=== PATIENT | female | born 1980 | race Caucasian/White ===

== ENCOUNTER → 2016-04-24 | Outpatient (CLI) | payer OTHER ==
[~2016-04-24] MED LIST: ALBI1INJ INJ; ALBU18002 INH; ALBU1AER9 INH; CHOL100027 PO; CLON0.5T3 PO; CYAN10002; CYAN1SUB13 SL; CYCL10TA6 PO; CYNI1000 INJ; DOXA2TAB PO; FLUT0.0529 NAE; GLC/500 PO; GLIM2TAB2 PO; HYDR1CAP85 PO; HYDR25CA PO; HYDR4TAB78 PO; IBUP-1050 PO; IMTIN5; LORA-741 PO; MEDR150I IM; MEDR150I19 IM; METH10TA4 PO; METH5TAB4 PO; PRED10TA PO; PRLSR20 PO; PROC1TAB5 PO; PROM25TA9 PO; RANI300T2 PO; REPA1TAB42 PO; RTL20 PO; SITA100T3 PO; SUMA100T16 PO; SUMA6KIT2; TAMS0.4C38 PO; TAPE100T2 PO; TOPI25TA10 PO; TRAM-10 PO; TRAZ50TA35 PO; TYLOTC500 PO; ZOLP5TAB PO
[2016-04-24 17:09] LABS: BASO % 0.2 %; BASO ABS # 0.02 K/uL (0-0.2); COMPLETE YES; HEMATOCRIT 41.6 % (37-47); IG% 0.2 %; LYMPH % 31.6 %; LYMPH ABS # 3.03 K/uL (1.2-3.4); MEAN CELL VOLUME 82.1 fL (80-100); MEAN CORPUSCULAR HEMOGLOBIN 27.4 pg (25-34); MEAN CORPUSCULAR HGB CONC 33.4 g/dl (32-36); MEAN PLATELET VOLUME 9.7 fL (7.4-10.4); MONO % 5.1 %; NEUT % 62.9 %; PLATELET COUNT 388 K/uL (130-400); RED BLOOD COUNT 5.07 M/uL (4.2-5.4); WHITE BLOOD COUNT 9.58 K/uL (4.8-10.8)
[2016-04-24 17:36] LABS: BLOOD UREA NITROGEN 14 mg/dl (7-18); GLUCOSE 120 mg/dl (70-99)
[2016-04-24 17:37] LABS: ALB/GLOB RATIO 0.9 (0.9-2); ALKALINE PHOSPHATASE 96 U/L (45-117); ALT/SGPT 25 U/L (12-78); AST/SGOT 12 U/L (15-37); BUN/CREATININE RATIO 15.2 (10-20); CARBON DIOXIDE 26 mmol/L (21-32); CHLORIDE 102 mmol/L (98-107); CHOLESTEROL 201 mg/dl (0-200); CHOLESTEROL/HDL RATIO 3.8; HDL CHOLESTEROL 53 mg/dl; LDL CHOLESTEROL CALCULATED 114 mg/dl; PHOSPHORUS 5.2 mg/dl (2.5-4.9); POTASSIUM 3.8 mmol/L (3.5-5.1); SODIUM 140 mmol/L (136-145); TRIGLYCERIDES 169 mg/dl (0-150); URIC ACID 4.4 mg/dl (2.6-7.2); VERY LOW DENSITY LIPOPROT CALC 34 mg/dl
[2016-04-25 06:22] LABS: ESTIMATED AVERAGE GLUCOSE 169 mg/dl; HA1C FLAG Normal (Normal)
--- NOTE | 2016-04-29 13:04 | CODING QUERY MEDICAL NECESSITY ---
SUPPORTING DIAGNOSIS NEEDED A supporting diagnosis is required for the test/procedure performed on this patient in order for us to be reimbursed by the patient's insurance. Please provide a supporting diagnosis for the following test/procedure listed below next to the test name along with your signature. *If there is no additional diagnosis for this patient that would support the following test/procedure please document that below next to the test/procedure. Test(s)/Procedure(s) that require a supporting diagnosis: DOS 04/24/16 * Vitamin D DIAGNOSIS: Provider Signature: Date: Thank you Heather Jean Health Information Management Once completed, please kindly fax back to [phone] For questions please call [phone]
== END | disposition home or self-care (01) ==
LOC: C.LABBC 14:30
PROVIDERS: ATTEND Family Medicine
DX: E11.9 Type 2 diabetes mellitus without complications (principal); R53.83 Other fatigue

== ENCOUNTER → 2016-05-10 | Outpatient (CLI) | payer OTHER ==
[2016-05-10 16:59] LABS: BASO % 0.1 %; BASO ABS # 0.01 K/uL (0-0.2); COMPLETE YES; HEMATOCRIT 39.2 % (37-47); IG% 0.1 %; LYMPH % 41.6 %; LYMPH ABS # 3.31 K/uL (1.2-3.4); MEAN CELL VOLUME 82.4 fL (80-100); MEAN CORPUSCULAR HEMOGLOBIN 27.3 pg (25-34); MEAN CORPUSCULAR HGB CONC 33.2 g/dl (32-36); MEAN PLATELET VOLUME 9.6 fL (7.4-10.4); MONO % 4.6 %; NEUT % 53.6 %; PLATELET COUNT 335 K/uL (130-400); RED BLOOD COUNT 4.76 M/uL (4.2-5.4); WHITE BLOOD COUNT 7.96 K/uL (4.8-10.8)
[2016-05-10 17:13] LABS: ALT/SGPT 24 U/L (12-78); AST/SGOT 10 U/L (15-37); BLOOD UREA NITROGEN 13 mg/dl (7-18); BUN/CREATININE RATIO 14.7 (10-20); CALCIUM 9.2 mg/dl (8.5-10.1); CARBON DIOXIDE 27 mmol/L (21-32); CHLORIDE 104 mmol/L (98-107); CHOLESTEROL 193 mg/dl (0-200); CREATININE 0.86 mg/dl (0.60-1.20); GLUCOSE 101 mg/dl (70-99); PHOSPHORUS 4.1 mg/dl (2.5-4.9); POTASSIUM 4.1 mmol/L (3.5-5.1); SODIUM 139 mmol/L (136-145); TRIGLYCERIDES 132 mg/dl (0-150); URIC ACID 4.2 mg/dl (2.6-7.2); VERY LOW DENSITY LIPOPROT CALC 26 mg/dl
[2016-05-10 17:22] LABS: ALKALINE PHOSPHATASE 87 U/L (45-117); CHOLESTEROL/HDL RATIO 3.2; FERRITIN 52.9 ng/ml (8.0-388.0); HDL CHOLESTEROL 61 mg/dl; LDL CHOLESTEROL CALCULATED 106 mg/dl; TOTAL IRON BINDING CAPACITY 343 mcg/dl (250-450)
[2016-05-11 06:18] LABS: ESTIMATED AVERAGE GLUCOSE 180 mg/dl; HA1C FLAG Normal (Normal)
[2016-05-14 12:01] LABS: C-REACTIVE PROT HIGHSEN 6.7 MG/L; GLIADIN DEAMIDATED IgA AB 5 UNITS (<20); GLIADIN DEAMIDATED IgG AB 3 UNITS (<20)
--- NOTE | 2016-05-14 12:25 | CODING QUERY MEDICAL NECESSITY ---
SUPPORTING DIAGNOSIS NEEDED A supporting diagnosis is required for the test/procedure performed on this patient in order for us to be reimbursed by the patient's insurance. Please provide a supporting diagnosis for the following test/procedure listed below next to the test name along with your signature. *If there is no additional diagnosis for this patient that would support the following test/procedure please document that below next to the test/procedure. Test(s)/Procedure(s) that require a supporting diagnosis: DOS 05/10 * Vitamin D DIAGNOSIS: * CRP DIAGNOSIS: * Vitamin B12 DIAGNOSIS: Provider Signature: Date: Thank you Heather Jean Health Information Management Once completed, please kindly fax back to [phone] For questions please call [phone]
[2016-05-15 21:33] LABS: 18KDIGG BAND NONREACTIVE (NONREACTIVE); 23KDIGG BAND NONREACTIVE (NONREACTIVE); 23KDIGM BAND NONREACTIVE (NONREACTIVE); 28KDIGG BAND NONREACTIVE (NONREACTIVE); 30KDIGG BAND NONREACTIVE (NONREACTIVE); 39KDIGG BAND NONREACTIVE (NONREACTIVE); 39KDIGM BAND NONREACTIVE (NONREACTIVE); 41KDIGG BAND REACTIVE (NONREACTIVE); 41KDIGM BAND NONREACTIVE (NONREACTIVE); 45KDIGG BAND NONREACTIVE (NONREACTIVE); 58KDIGG BAND NONREACTIVE (NONREACTIVE); 66KDIGG BAND REACTIVE (NONREACTIVE); 93KDIGG BAND NONREACTIVE (NONREACTIVE)
== END | disposition home or self-care (01) ==
LOC: C.LABBC 14:28
PROVIDERS: ATTEND Family Medicine
DX: R73.09 Other abnormal glucose (principal); E11.9 Type 2 diabetes mellitus without complications; R53.83 Other fatigue; M25.50 Pain in unspecified joint; E55.9 Vitamin D deficiency, unspecified; D51.9 Vitamin B12 deficiency anemia, unspecified

== ENCOUNTER → 2016-06-22 | Outpatient (CLI) | payer OTHER ==
[2016-06-22 15:44] LABS: PROLACTIN 8.84 ng/mL; THYROID STIMULATING HORMONE 0.956 uIu/ml (0.300-4.500)
[2016-06-22 15:45] LABS: TESTOSTERONE,TOTAL 8.1 ng/dl
[2016-06-28 14:16] LABS: PREGNENELONE **TC 31493X 11 ng/dL; SEX HORMONE BINDING GLOB 15 NMOL/L (17-124)
== END ==
LOC: C.LAB 14:44
PROVIDERS: ATTEND Family Medicine
DX: E28.9 Ovarian dysfunction, unspecified (principal)

== ENCOUNTER → 2016-06-26 | Outpatient (CLI) | payer OTHER | END | disposition home or self-care (01) | LOC: C.LABSPEC 15:08 | PROVIDERS: ATTEND Family Medicine | DX: N39.0 Urinary tract infection, site not specified (principal) ==

== ENCOUNTER 2016-06-27 18:52 | Emergency (ER) | payer OTHER ==
[~2016-06-27] VITALS: Ht 170.2 cm; Wt 132.5 kg
[~2016-06-27 18:52] MED LIST changes: -ALBU18002 INH; -CLON0.5T3 PO; -CYNI1000 INJ; -GLIM2TAB2 PO; -HYDR4TAB78 PO; -MEDR150I19 IM; -METH10TA4 PO; -PRED10TA PO; -PROM25TA9 PO; -RTL20 PO; -SITA100T3 PO; -TAPE100T2 PO; -TOPI25TA10 PO
[2016-06-27 19:02] VITALS: TEMP 36.9; Ht 170.2 cm; Wt 132.5 kg
[2016-06-27] MEDS ORDERED: SODIUM CHLORIDE 0.9% 1000ML 1,000 ML IV STA ×2 (19:28)
[2016-06-27] MEDS ORDERED: PROMETHAZINE HCL INJ 6.25 MG in SODIUM CHLORIDE 0.9% 50ML 50 ML IV STA (19:28)
[2016-06-27] MEDS ORDERED: ONDANSETRON INJ 2 MG/ML 2 ML VIAL IV STA (19:28)
[2016-06-27] MEDS ORDERED: HYDROmorphone INJ 2 MG/ML SYR/VIAL IV PRN (19:30)
[2016-06-27] MEDS ORDERED: HYDROmorphone INJ 1 MG/ML SYR ONE (19:49)
[2016-06-27 20:02] LABS: COMPLETE YES; IG% 0.2 %; LYMPH % 32.5 %; LYMPH ABS # 3.16 K/uL (1.2-3.4); MEAN CELL VOLUME 83.3 fL (80-100); MEAN CORPUSCULAR HEMOGLOBIN 27.6 pg (25-34); MEAN CORPUSCULAR HGB CONC 33.1 g/dl (32-36); MEAN PLATELET VOLUME 9.7 fL (7.4-10.4); MONO % 4.5 %; NEUT % 62.8 %; PLATELET COUNT 334 K/uL (130-400); RED BLOOD COUNT 4.68 M/uL (4.2-5.4); WHITE BLOOD COUNT 9.72 K/uL (4.8-10.8)
--- NOTE | 2016-06-27 20:10 | EMERGENCY ROOM VISIT NOTE ---
History Report prepared by Haley: Violet Tang Under the Supervision of: Dr. Shane Ceron M.D. First contact with patient: 19:25 Chief Complaint: KIDNEY STONE Stated Complaint: VOMITING, KIDNEY PAIN, KIDNEY STONE History of Present Illness The patient is a 36 year old female who presents to the Emergency Room with complaints of waxing and waning right flank pain starting 5 days ago. At its worst, she reports a pain intensity of 10/10. She also complains of nausea and vomiting. She was evaluated by her PCP 2 days ago. She had blood in her urine. She was prescribed Cipro, Dilaudid, and Phenergan without relief. The patient denies burning or difficulty with urinating. She has a history of kidney stones and reports similar symptoms. Her last episode of kidney stone occurred in December-January 2016 which passed naturally. She also has a history of frequent UTIs. The patient denies fevers, chills, chest pain, shortness of breath, or any other complaints. Source of History: patient Onset: 5 days ago Position: other (right flank) Symptom Intensity: 10/10 at its worst Timing: waxes/wanes Modifying Factors (Relieving): other (Cipro, Dilaudid, and Phenergan without relief) Associated Symptoms: + nausea, + vomiting, No SOB, No chest pain, No chills , No fevers Review of Systems See HPI for pertinent positives & negatives. A total of 10 systems reviewed and were otherwise negative. Past Medical & Surgical Medical Problems: (1) Borderline personality disorder (2) Calculus, ureter (3) Chronic back pain (4) chronic neck pain (5) Diabetes (6) Kidney stone Family History Hypertension Kidney disease Social History Smoking Status: Never Smoker Alcohol Use: none Drug Use: none Marital Status: single Housing Status: lives with family Occupation Status: employed Current/Historical Medications Scheduled Cholecalciferol (Vitamin D 1000 Unit), 1,000 INTER.UNIT PO DAILY Cyclobenzaprine Hcl (Flexeril), 10 MG PO BID Doxazosin Mesylate (Cardura), 2 MG PO HS Hydromorphone Hcl (Dilaudid), 4 MG PO Q4 Hydroxyzine Pamoate (Vistaril), 75 MG PO HS Medroxyprogesterone Acetate (C (Depo-Provera Contraceptiv), 150 MG IM Q3MO Methylphenidate (Ritalin), 10 MG PO noon Methylphenidate (Ritalin), 20 MG PO QAM Omeprazole (Prilosec), 40 MG PO DAILY Prednisone (Prednisone), 10 MG PO DAILY Ranitidine (Zantac), 600 MG PO HS Sitagliptin Phosphate (Januvia), 100 MG PO DAILY Tapentadol Hcl (Nucynta), 100 MG PO TID Topiramate (Topamax), 25 MG PO DAILY Scheduled PRN Albuterol Sulfate (Proair Hfa), 2 PUFFS INH Q4 PRN for asthma Hydroxyzine Pamoate (Vistaril), 25 MG PO BID PRN for Anxiety Lorazepam (Ativan), 0.5 MG PO DAILY PRN for seizure aura Promethazine Hcl (Phenergan), 25 MG PO Q6H PRN for Nausea Sumatriptan Succinate (Imitrex), 200 MG PO DAILY PRN for Headache Sumatriptan Succinate (Imitrex Nasal [place]), 1 SPRAY NA UD PRN for Headache Tamsulosin Hcl (Flomax), 0.4 MG PO DAILY PRN for kidney stones Trazodone Hcl (Trazodone), 50 MG PO HS PRN for Sleep Zolpidem Tartrate (Ambien), 10 MG PO HS PRN for Sleep Miscellaneous Medications Cyanocobalamin (Vitamin B-12 Inj) Sumatriptan Succinate (Imitrex Statdose) Allergies Coded Allergies: Morphine (Verified Allergy, Severe, "HEART STOPS BEATING", 06/27/16) TOLERATES OXY IR, TRAMADOL Black Pepper (Verified Allergy, Mild, 06/27/16) Ketorolac (Verified Allergy, Mild, ITCHY, BUT CAN STILL TAKE IT, 06/27/16) Mushroom (Verified Allergy, Mild, 06/27/16) Sulfa Drugs (Verified Allergy, Mild, 06/27/16) Terfenadine (Verified Allergy, Mild, RASH, 06/27/16) Antihistamines, Chlorpheniramine-ty (Verified Allergy, Unknown, "ANTIHISTAMINE ALLERGY" - NO ALLERGY TO CLARITIN PER PT, 06/27/16) Antihistamines, Diphenhydramine-typ (Verified Allergy, Unknown, "ANTIHISTAMINE ALLERGY"- NO ALLERGY TO CLARITIN PER PT, 06/27/16) Aspartame (Unverified Allergy, Unknown, HIVES, 06/27/16) SOB ALSO Fexofenadine (Verified Allergy, Unknown, 06/27/16) Physical Exam Vital Signs Date Time Temp Pulse Resp B/P Pulse Ox O2 Delivery O2 Flow Rate FiO2 06/27/16 19:02 36.9 96 18 156/91 97 Room Air Physical Exam GENERAL: Patient is in no acute distress. HEENT: No acute trauma, normocephalic atraumatic, mucous membranes moist, no nasal congestion, no scleral icterus. NECK: No stridor, no adenopathy, no meningismus, trachea is midline. LUNGS: Clear to auscultation bilaterally, no wheeze, no rhonchi, breath sounds equal. HEART: Without murmurs gallops or rubs, regular rate and rhythm. ABDOMEN: Soft, nontender, bowel sounds positive, no hernias, no peritonitis. BACK: Right flank discomfort with percussion. EXTREMITIES: No cyanosis or edema, full range of motion of all the joints without pain or difficulty, no signs for acute trauma. NEUROLOGIC: Oriented x 3, no acute motor or sensory deficits, no focal weakness. SKIN: No rash, no jaundice, no diaphoresis. Medical Decision & Procedures ER Provider Diagnostic Interpretation: CT results as stated below per my review and radiologist interpretation: ABDOMEN AND PELVIS CT WITHOUT CONTRAST CT DOSE: 1827.74 mGy.cm HISTORY: EVALUATE FLANK PAIN/HEMATURIA TECHNIQUE: Multiaxial CT images of the abdomen and pelvis were performed without the use of intravenous and oral contrast according to the standard department stone protocol. COMPARISON STUDY: Abdomen and pelvis CT 08/11/2015. FINDINGS: Bilateral nephrolithiasis. No hydronephrosis. The lung bases are clear. Extensive degenerative disc disease within the mid to lower lumbar spine, unchanged. Punctate stone within the gallbladder. The unenhanced liver, spleen, adrenal glands, and pancreas are unremarkable. No retroperitoneal lymphadenopathy. The bladder is now well-distended but appears unremarkable. The uterus and ovaries are within normal limits. Stable appendiceal stump. Suboptimal evaluation for bowel pathology due to the lack of intravenous and oral contrast. However, there is no definite bowel wall thickening or obstruction. Colonic diverticulosis. IMPRESSION: 1. Bilateral nephrolithiasis. No ureteral renal stones or hydronephrosis. 2. No definite bowel wall thickening or obstruction. 3. Cholelithiasis. 4. Additional findings as described above. Electronically signed by: Dio Gutiérrez M.D. 06/27/2016 8:29 PM Dictated Date/Time: 06/27/2016 8:21 PM Laboratory Results 06/27/16 19:48 Red Blood Count 4.68, Mean Corpuscular Volume 83.3, Mean Corpuscular Hemoglobin 27.6, Mean Corpuscular Hemoglobin Concent 33.1, Mean Platelet Volume 9.7, Neutrophils (%) (Auto) 62.8, Lymphocytes (%) (Auto) 32.5, Monocytes (%) (Auto) 4.5, Eosinophils (%) (Auto) 0.0, Basophils (%) (Auto) 0.0, Neutrophils # (Auto) 6.10, Lymphocytes # (Auto) 3.16, Monocytes # (Auto) 0.44, Eosinophils # (Auto) 0.00, Basophils # (Auto) 0.00 06/27/16 19:48 Test 06/27/16 19:48 06/27/16 20:00 White Blood Count 9.72 K/uL (4.8-10.8) Red Blood Count 4.68 M/uL (4.2-5.4) Hemoglobin 12.9 g/dL (12.0-16.0) Hematocrit 39.0 % (37-47) Mean Corpuscular Volume 83.3 fL (80-100) Mean Corpuscular Hemoglobin 27.6 pg (25-34) Mean Corpuscular Hemoglobin Concent 33.1 g/dl (32-36) Platelet Count 334 K/uL (130-400) Mean Platelet Volume 9.7 fL (7.4-10.4) Neutrophils (%) (Auto) 62.8 % Lymphocytes (%) (Auto) 32.5 % Monocytes (%) (Auto) 4.5 % Eosinophils (%) (Auto) 0.0 % Basophils (%) (Auto) 0.0 % Neutrophils # (Auto) 6.10 K/uL (1.4-6.5) Lymphocytes # (Auto) 3.16 K/uL (1.2-3.4) Monocytes # (Auto) 0.44 K/uL (0.11-0.59) Eosinophils # (Auto) 0.00 K/uL (0-0.5) Basophils # (Auto) 0.00 K/uL (0-0.2) RDW Standard Deviation 43.4 fL (36.4-46.3) RDW Coefficient of Variation 14.3 % (11.5-14.5) Immature Granulocyte % (Auto) 0.2 % Immature Granulocyte # (Auto) 0.02 K/uL (0.00-0.02) Anion Gap 8.0 mmol/L (3-11) Est Creatinine Clear Calc Drug Dose 150.7 ml/min Estimated GFR () 121.7 Estimated GFR (Non- 105.0 BUN/Creatinine Ratio 19.1 (10-20) Calcium Level 9.4 mg/dl (8.5-10.1) Total Bilirubin 0.2 mg/dl (0.2-1) Aspartate Amino Transf (AST/SGOT) 21 U/L (15-37) Alanine Aminotransferase (ALT/SGPT) 34 U/L (12-78) Alkaline Phosphatase 92 U/L (45-117) Total Protein 7.7 gm/dl (6.4-8.2) Albumin 3.7 gm/dl (3.4-5.0) Globulin 4.0 gm/dl (2.5-4.0) Albumin/Globulin Ratio 0.9 (0.9-2) Lipase 71 U/L (73-393) Urine Color YELLOW Urine Appearance CLOUDY (CLEAR) Urine pH 5.5 (4.5-7.5) Urine Specific [place] 1.030 (1.000-1.030) Urine Protein NEG (NEG) Urine Glucose (UA) NEG (NEG) Urine Ketones NEG (NEG) Urine Occult Blood 2+ (NEG) Urine Nitrite NEG (NEG) Urine Bilirubin NEG (NEG) Urine Urobilinogen NEG (NEG) Urine Leukocyte Esterase TRACE (NEG) Urine WBC (Auto) 10-30 /hpf (0-5) Urine RBC (Auto) 5-10 /hpf (0-4) Urine Hyaline Casts (Auto) 5-10 /lpf (0-5) Urine Epithelial Cells (Auto) >30 /lpf (0-5) Urine Bacteria (Auto) 1+ (NEG) Urine Crystals CALCIUM OXALATE (NONE Urine Yeast (Auto) (NONE PRSENT) Urine Test NEG (NEG) Laboratory results reviewed by me. Medications Administered Medications (Trade) Dose Ordered Sig/Shruthi Route Start Time Stop Time Status Last Admin Dose Admin Ondansetron HCl 4 mg 4 mg NOW STAT IV 06/27/16 19:28 06/27/16 19:33 DC 06/27/16 19:58 4 MG Sodium Chloride (Nss 1000ml) 1,000 ml @ 999 mls/hr Q1H1M STAT IV 06/27/16 19:28 06/27/16 20:28 DC 06/27/16 19:59 999 MLS/HR Hydromorphone HCl (Dilaudid Inj) 1 mg Q30M PRN IV 06/27/16 19:30 07/11/16 19:29 06/27/16 19:57 1 MG ED Course 1924: The patient was evaluated in room C05. A complete history and physical exam was performed. 1927: Promethazine HCl 6.25 mg/Sodium Chloride 50.25 ml @ 204 mls/hr IV, Sodium Chloride 1000 ml @ 200 mls/hr IV, Sodium Chloride 1000 ml @ 999 mls/hr IV, Zofran Inj 4 mg IV 1929: Dilaudid Inj 1 mg IV 2054: Reevaluated the patient. Discussed results and discharge instructions: She verbalized understanding and agreement. The patient is ready for discharge. Medical Decision Differential diagnosis includes but is not limited to renal colic, pyelonephritis, biliary colic, musculoskeletal pain, failed outpatient treatment , dehydration, renal failure, electrolyte imbalance. There is no leukocytosis or concerning anemia. No significant electrolyte abnormality, kidney failure, hepatitis or pancreatitis. Urinalysis shows some hematuria and contamination, no convincing evidence for infection. Abdominal and pelvis CT shows stones within the kidneys, no hydronephrosis or ureteral stone. On exam, the patient was not febrile or toxic. She had no pain across the anterior abdomen. Her pain was only in the right flank. Patient received IV saline, IV Phenergan, IV Zofran. She was given IV Dilaudid. She feels improved and seems to be resting comfortably. The patient is being discharged to strain all her urine. She will keep on her Phenergan, Cipro and Dilaudid as an outpatient. She can follow with her doctors office. She was reassured by her testing and I do feel is stable for discharge home. Her flank pain may be musculoskeletal, she may be passing a very small kidney stone not noted by CT. She understands. Impression Primary Impression: Right flank pain Scribe Attestation The scribe's documentation has been prepared under my direction and personally reviewed by me in its entirety. I confirm that the note above accurately reflects all work, treatment, procedures, and medical decision making performed by me. Departure Information Dispostion Home / Self-Care Referrals Diogo Armstrong M.D. (PCP) Forms HOME CARE DOCUMENTATION FORM, IMPORTANT VISIT INFORMATION Patient Instructions My [facility] Additional Instructions strain all the urine for a stone all meds for pain and nausea as before continue the cipro return for fever, vomiting or uncontrolled pain follow with the [facility] [place] for a recheck in a few days
[2016-06-27 20:16] LABS: BUN/CREATININE RATIO 19.1 (10-20); CALCIUM 9.4 mg/dl (8.5-10.1); CREATININE 0.74 mg/dl (0.60-1.20); POTASSIUM 3.7 mmol/L (3.5-5.1)
[2016-06-27 20:19] LABS: ALB/GLOB RATIO 0.9 (0.9-2)
[2016-06-27 20:30] LABS: URINE APPEARANCE CLOUDY (CLEAR); URINE BILIRUBIN NEG (NEG); URINE COLOR YELLOW; URINE EPITHELIAL CELL AUTO >30 /lpf (0-5); URINE NITRITE NEG (NEG); URINE PH 5.5 (4.5-7.5); UROBILINOGEN NEG (NEG)
--- NOTE | 2016-06-27 20:30 | DIAGNOSTIC IMAGING REPORT ---
ABDOMEN AND PELVIS CT WITHOUT CONTRAST CT DOSE: 1827.74 mGy.cm HISTORY: EVALUATE FLANK PAIN/HEMATURIA TECHNIQUE: Multiaxial CT images of the abdomen and pelvis were performed without the use of intravenous and oral contrast according to the standard department stone protocol. COMPARISON STUDY: Abdomen and pelvis CT 08/11/2015. FINDINGS: Bilateral nephrolithiasis. No hydronephrosis. The lung bases are clear. Extensive degenerative disc disease within the mid to lower lumbar spine, unchanged. Punctate stone within the gallbladder. The unenhanced liver, spleen, adrenal glands, and pancreas are unremarkable. No retroperitoneal lymphadenopathy. The bladder is now well-distended but appears unremarkable. The uterus and ovaries are within normal limits. Stable appendiceal stump. Suboptimal evaluation for bowel pathology due to the lack of intravenous and oral contrast. However, there is no definite bowel wall thickening or obstruction. Colonic diverticulosis. IMPRESSION: 1. Bilateral nephrolithiasis. No ureteral renal stones or hydronephrosis. 2. No definite bowel wall thickening or obstruction. 3. Cholelithiasis. 4. Additional findings as described above. Electronically signed by: Dio Gutiérrez M.D. 06/27/2016 8:29 PM Dictated Date/Time: 06/27/2016 8:21 PM
[2016-06-27 20:31] LABS: MANUAL MICROSCOPIC REQUIRED? NO; REVIEW REQ? YES
[2016-06-27 20:38] LABS: PREG INTERNAL NEGATIVE QC NEG CLEAR BACKGROUND; PREG INTERNAL POSITIVE QC POS CONTROL LINE
[2016-06-27 20:45] LABS: ZZUR CULT IF INDIC CLEAN CATCH YES
[2016-06-27] MEDS ORDERED: TOPI25TA10 PO (20:51)
[2016-06-27] MEDS ORDERED: METH10TA4 PO (20:51)
[2016-06-27] MEDS ORDERED: HYDR4TAB78 PO (20:51)
[2016-06-27] MEDS ORDERED: SITA100T3 PO (20:51)
[2016-06-27] MEDS ORDERED: RTL20 PO (20:51)
[2016-06-27] MEDS ORDERED: PROM25TA9 PO (20:51)
[2016-06-27] MEDS ORDERED: PRED10TA PO (20:51)
[2016-06-27] MEDS ORDERED: TAPE100T2 PO (20:51)
[2016-06-27 21:23] VITALS: BP 138/83; PULSE 88; O2SAT 98
== END 2016-06-27 21:24 | disposition home or self-care (01) ==
LOC: C.EDB 18:53 → C.EDC 21:24
DX: N20.0 Calculus of kidney (principal); R10.30 Lower abdominal pain, unspecified; E11.9 Type 2 diabetes mellitus without complications; G89.29 Other chronic pain; Z87.442 Personal history of urinary calculi; Z79.899 Other long term (current) drug therapy; Z88.5 Allergy status to narcotic agent; Z88.8 Allergy status to other drugs, medicaments and biological substances; Z91.018 Allergy to other foods; Z91.09 Other allergy status, other than to drugs and biological substances; Z82.49 Family history of ischemic heart disease and other diseases of the circulatory system; Z84.1 Family history of disorders of kidney and ureter

== ENCOUNTER 2016-07-04 16:02 | Emergency (ER) | payer OTHER ==
[~2016-07-04] VITALS: Ht 170.2 cm; Wt 129.8 kg
[~2016-07-04 16:02] MED LIST changes: -ALBI1INJ INJ; -CYAN1SUB13 SL; -FLUT0.0529 NAE; -GLC/500 PO; +HYDR4TAB78 PO; -IBUP-1050 PO; +METH10TA4 PO; -METH5TAB4 PO; +PRED10TA PO; -PROC1TAB5 PO; +PROM25TA9 PO; -REPA1TAB42 PO; +RTL20 PO; +SITA100T3 PO; +TAPE100T2 PO; +TOPI25TA10 PO; -TRAM-10 PO; -TYLOTC500 PO
[2016-07-04 16:05] VITALS: TEMP 36.8; Ht 170.2 cm; Wt 129.8 kg
[2016-07-04 17:01] LABS: BASO % 0.1 %; BASO ABS # 0.01 K/uL (0-0.2); COMPLETE YES; HEMATOCRIT 39.3 % (37-47); IG% 0.3 %; LYMPH % 15.7 %; LYMPH ABS # 1.84 K/uL (1.2-3.4); MEAN CELL VOLUME 80.7 fL (80-100); MEAN CORPUSCULAR HEMOGLOBIN 27.3 pg (25-34); MEAN CORPUSCULAR HGB CONC 33.8 g/dl (32-36); MEAN PLATELET VOLUME 9.6 fL (7.4-10.4); MONO % 3.8 %; NEUT % 80.1 %; PLATELET COUNT 357 K/uL (130-400); RED BLOOD COUNT 4.87 M/uL (4.2-5.4); WHITE BLOOD COUNT 11.75 K/uL (4.8-10.8)
[2016-07-04 17:09] LABS: URINE APPEARANCE CLEAR (CLEAR); URINE BILIRUBIN NEG (NEG); URINE COLOR YELLOW; URINE EPITHELIAL CELL AUTO >30 /lpf (0-5); URINE NITRITE NEG (NEG); URINE PH 5.5 (4.5-7.5); URINE SPECIFIC GRAVITY 1.023 (1.000-1.030); UROBILINOGEN NEG (NEG)
[2016-07-04 17:10] LABS: MANUAL MICROSCOPIC REQUIRED? NO; REVIEW REQ? NO
[2016-07-04 17:18] LABS: BLOOD UREA NITROGEN 14 mg/dl (7-18); CREATININE 0.91 mg/dl (0.60-1.20); GLUCOSE 278 mg/dl (70-99)
[2016-07-04 17:19] LABS: ALT/SGPT 32 U/L (12-78); AST/SGOT 14 U/L (15-37); BUN/CREATININE RATIO 15.3 (10-20); CALCIUM 9.3 mg/dl (8.5-10.1); CARBON DIOXIDE 26 mmol/L (21-32); CHLORIDE 100 mmol/L (98-107); POTASSIUM 3.5 mmol/L (3.5-5.1); SODIUM 136 mmol/L (136-145)
[2016-07-04] MEDS ORDERED: GLIM2TAB2 PO (17:20)
[2016-07-04 17:22] LABS: ACETAMINOPHEN < 2 ug/ml (10-30)
[2016-07-04] MEDS ORDERED: CLON0.5T3 PO (17:24)
[2016-07-04 17:29] LABS: ALKALINE PHOSPHATASE 89 U/L (45-117)
[2016-07-04 17:30] LABS: BENZODIAZEPINE, URINE NEG (NEG); COCAINE,URINE NEG (NEG); PHENCYCLIDINE, URINE NEG (NEG)
[2016-07-04] MEDS ORDERED: ALBU18002 INH (17:30)
[2016-07-04] MEDS ORDERED: CYNI1000 INJ (17:35)
[2016-07-04] MEDS ORDERED: MEDR150I19 IM (17:38)
[2016-07-04 18:05] LABS: PREG INTERNAL NEGATIVE QC NEG CLEAR BACKGROUND; PREG INTERNAL POSITIVE QC POS CONTROL LINE
[2016-07-04] MEDS ORDERED: GLIMEPIRIDE 2 MG TAB PO ONE (18:45)
[2016-07-04] MEDS ORDERED: TOPIRAMATE 25 MG TAB PO STA (21:04)
[2016-07-04] MEDS ORDERED: ZOLPIDEM TARTRATE 10 MG TAB PO STA (21:08)
[2016-07-04] MEDS ORDERED: CYCLOBENZAPRINE HCL 5 MG TAB PO STA (21:08)
[2016-07-04] MEDS ORDERED: DOXAZosin MESYLATE TAB 2 MG TAB PO STA (21:08)
[2016-07-04] MEDS ORDERED: TAPENTADOL HCL 50 MG TAB PO STA (21:08)
[2016-07-04] MEDS ORDERED: hydrOXYzine HCL 25 MG TAB PO STA (21:08)
[2016-07-04] MEDS ORDERED: TRAZODONE HCL 50 MG TAB PO ONE (21:15)
[2016-07-04] MEDS ORDERED: RANITIDINE HCL 150 MG TAB PO ONE (21:15)
--- NOTE | 2016-07-04 22:40 | EMERGENCY ROOM VISIT NOTE ---
History Report prepared by Haley: Linn Ugarte Under the Supervision of: Dr. Jairo Grijalva M.D. First contact with patient: 16:34 Chief Complaint: MENTAL HEALTH EVALUATION Stated Complaint: DEPRESSION History of Present Illness The patient is a 36 year old female who presents to the Emergency Room with complaints of worsening depressed mood for the past 8 weeks. Her depressed mood started 7 months ago when her service dog . For the past 8 weeks, her psychologist has noticed that she has been getting increasingly depressed. She has a history of bipolar disorder. She reports that she has had as many as 8000 suicide attempts and 30 hospitalizations for mental health reasons. She has not been hospitalized for the past 2 years. She present to the ED today because she would like to receive treatment before she attempts to hurt herself. She currently does not have a plan to hurt herself. She reports that she has not been taking care of herself lately. Recently, her boss notified her that she need to take care of herself before she can resume working. Last night she had some vomiting. She reports that her depression is worsening because of a combination of physical illness and stress. She denies any thoughts of hurting others. Pt denies LOC, headache, fevers, chills, diaphoresis, visual changes, neck pain, chest pain, breathing difficulties, nausea, abdominal pain, back pain, melena, hematochezia, urinary symptoms, numbness, weakness, lymphadenopathy, rash, or other complaints. Source of History: patient Onset: 8 weeks ago Position: other (global) Quality: other (depressed mood) Timing: worsening Modifying Factors (Worsening): other (physical illness, stress) Associated Symptoms: + vomiting Review of Systems See HPI for pertinent positives and negatives. A total of ten systems were reviewed and were otherwise negative. Past Medical & Surgical Medical Problems: (1) Borderline personality disorder (2) Calculus, ureter (3) Chronic back pain (4) chronic neck pain (5) Diabetes (6) Kidney stone Family History Hypertension Kidney disease Social History Smoking Status: Never Smoker Alcohol Use: none Drug Use: none Marital Status: single Housing Status: lives with family Occupation Status: employed Current/Historical Medications Scheduled Cholecalciferol (Vitamin D 1000 Unit), 1,000 INTER.UNIT PO DAILY Cyanocobalamin (Cyanocobalamin), 1,000 MCG INJ Q2W Cyclobenzaprine Hcl (Flexeril), 10 MG PO BID Doxazosin Mesylate (Cardura), 2 MG PO HS Glimepiride (Glimepiride), 1 TAB PO BIDM Hydromorphone Hcl (Dilaudid), 4 MG PO Q4 Hydroxyzine Pamoate (Vistaril), 75 MG PO HS Medroxyprogesterone Acetate (C (Medroxyprogesterone Aceta), 150 MG IM Q3MO Methylphenidate (Ritalin), 10 MG PO noon Methylphenidate (Ritalin), 20 MG PO QAM Omeprazole (Prilosec), 40 MG PO DAILY Prednisone (Prednisone), 10 MG PO DAILY Ranitidine (Zantac), 600 MG PO HS Sitagliptin Phosphate (Januvia), 100 MG PO DAILY Tapentadol Hcl (Nucynta), 100 MG PO TID Topiramate (Topamax), 25 MG PO QPM Scheduled PRN Albuterol Sulfate (Proair Respiclick), 2 PUFFS INH Q4H PRN for Shortness of Breath Clonazepam (Klonopin), 0.5 MG PO DAILY PRN for Depression Hydroxyzine Pamoate (Vistaril), 25 MG PO BID PRN for Anxiety Lorazepam (Ativan), 0.5 MG PO DAILY PRN for seizure aura Promethazine Hcl (Phenergan), 25 MG PO Q6H PRN for Nausea Sumatriptan Succinate (Imitrex), 200 MG PO DAILY PRN for Headache Sumatriptan Succinate (Imitrex Nasal [place]), 1 SPRAY NA UD PRN for Headache Tamsulosin Hcl (Flomax), 0.4 MG PO DAILY PRN for kidney stones Trazodone Hcl (Trazodone), 50 MG PO HS PRN for Sleep Zolpidem Tartrate (Ambien), 10 MG PO HS PRN for Sleep Miscellaneous Medications Sumatriptan Succinate (Imitrex Statdose) Allergies Coded Allergies: Morphine (Verified Allergy, Severe, "HEART STOPS BEATING", 07/04/16) TOLERATES OXY IR, TRAMADOL Black Pepper (Verified Allergy, Mild, 07/04/16) Ketorolac (Verified Allergy, Mild, ITCHY, BUT CAN STILL TAKE IT, 07/04/16) Mushroom (Verified Allergy, Mild, 07/04/16) Sulfa Drugs (Verified Allergy, Mild, 07/04/16) Terfenadine (Verified Allergy, Mild, RASH, 07/04/16) Antihistamines, Chlorpheniramine-ty (Verified Allergy, Unknown, "ANTIHISTAMINE ALLERGY" - NO ALLERGY TO CLARITIN PER PT, 07/04/16) Antihistamines, Diphenhydramine-typ (Verified Allergy, Unknown, "ANTIHISTAMINE ALLERGY"- NO ALLERGY TO CLARITIN PER PT, 07/04/16) Aspartame (Unverified Allergy, Unknown, HIVES, 07/04/16) SOB ALSO Fexofenadine (Verified Allergy, Unknown, 07/04/16) Shellfish (Unverified Adverse Reaction, Severe, HIVES, 07/04/16) Physical Exam Vital Signs Date Time Temp Pulse Resp B/P Pulse Ox O2 Delivery O2 Flow Rate FiO2 07/04/16 17:49 109 20 148/89 97 Room Air 07/04/16 16:05 36.8 128 20 173/128 98 Room Air Physical Exam GENERAL: Awake, alert, anxious appearing, no distress HENT: Normocephalic, atraumatic. TM's normal. Oropharynx unremarkable. EYES: PERRL. EOMI. Normal conjunctiva. Sclera non-icteric. NECK: Supple. No nuchal rigidity. FROM. No JVD or bruit. RESPIRATORY: CTA CARDIAC: RRR. No murmur. ABDOMEN: Soft, non distended. No tenderness to palpation. No rebound or guarding. No masses. MUSCULOSKELETAL: Unremarkable. No edema. No discoloration. Gross motor strength symmetric. NEURO: Cranial nerves 2-12 grossly intact. Normal sensorium. No sensory or motor deficits noted. Speech normal. No pronator drift. SKIN: No rash or jaundice noted. LYMPH: No adenopathy. PSYCH: Anxious mood. Labile affect. Vague suicidal ideation. No homicidal ideation. Medical Decision & Procedures Laboratory Results 07/04/16 16:45 Red Blood Count 4.87, Mean Corpuscular Volume 80.7, Mean Corpuscular Hemoglobin 27.3, Mean Corpuscular Hemoglobin Concent 33.8, Mean Platelet Volume 9.6, Neutrophils (%) (Auto) 80.1, Lymphocytes (%) (Auto) 15.7, Monocytes (%) (Auto) 3.8, Eosinophils (%) (Auto) 0.0, Basophils (%) (Auto) 0.1, Neutrophils # (Auto) 9.41, Lymphocytes # (Auto) 1.84, Monocytes # (Auto) 0.45, Eosinophils # (Auto) 0.00, Basophils # (Auto) 0.01 07/04/16 16:45 Test 07/04/16 16:45 07/04/16 16:47 White Blood Count 11.75 K/uL (4.8-10.8) Red Blood Count 4.87 M/uL (4.2-5.4) Hemoglobin 13.3 g/dL (12.0-16.0) Hematocrit 39.3 % (37-47) Mean Corpuscular Volume 80.7 fL (80-100) Mean Corpuscular Hemoglobin 27.3 pg (25-34) Mean Corpuscular Hemoglobin Concent 33.8 g/dl (32-36) Platelet Count 357 K/uL (130-400) Mean Platelet Volume 9.6 fL (7.4-10.4) Neutrophils (%) (Auto) 80.1 % Lymphocytes (%) (Auto) 15.7 % Monocytes (%) (Auto) 3.8 % Eosinophils (%) (Auto) 0.0 % Basophils (%) (Auto) 0.1 % Neutrophils # (Auto) 9.41 K/uL (1.4-6.5) Lymphocytes # (Auto) 1.84 K/uL (1.2-3.4) Monocytes # (Auto) 0.45 K/uL (0.11-0.59) Eosinophils # (Auto) 0.00 K/uL (0-0.5) Basophils # (Auto) 0.01 K/uL (0-0.2) RDW Standard Deviation 40.6 fL (36.4-46.3) RDW Coefficient of Variation 13.8 % (11.5-14.5) Immature Granulocyte % (Auto) 0.3 % Immature Granulocyte # (Auto) 0.04 K/uL (0.00-0.02) Anion Gap 10.0 mmol/L (3-11) Est Creatinine Clear Calc Drug Dose 121.1 ml/min Estimated GFR () 94.7 Estimated GFR (Non- 81.7 BUN/Creatinine Ratio 15.3 (10-20) Calcium Level 9.3 mg/dl (8.5-10.1) Total Bilirubin 0.4 mg/dl (0.2-1) Direct Bilirubin < 0.1 mg/dl (0-0.2) Aspartate Amino Transf (AST/SGOT) 14 U/L (15-37) Alanine Aminotransferase (ALT/SGPT) 32 U/L (12-78) Alkaline Phosphatase 89 U/L (45-117) Total Protein 8.1 gm/dl (6.4-8.2) Albumin 3.9 gm/dl (3.4-5.0) Thyroid Stimulating Hormone (TSH) 2.720 uIu/ml (0.300-4.500) Human Chorionic Gonadotropin, Qual NEG (NEG) Salicylates Level < 1.7 mg/dl (2.8-20) Acetaminophen Level < 2 ug/ml (10-30) Ethyl Alcohol mg/dL < 3.0 mg/dl (0-3) Urine Color YELLOW Urine Appearance CLEAR (CLEAR) Urine pH 5.5 (4.5-7.5) Urine Specific [place] 1.023 (1.000-1.030) Urine Protein NEG (NEG) Urine Glucose (UA) 2+ (NEG) Urine Ketones 1+ (NEG) Urine Occult Blood 1+ (NEG) Urine Nitrite NEG (NEG) Urine Bilirubin NEG (NEG) Urine Urobilinogen NEG (NEG) Urine Leukocyte Esterase NEG (NEG) Urine WBC (Auto) 1-5 /hpf (0-5) Urine RBC (Auto) 0-4 /hpf (0-4) Urine Hyaline Casts (Auto) 1-5 /lpf (0-5) Urine Epithelial Cells (Auto) >30 /lpf (0-5) Urine Bacteria (Auto) NEG (NEG) Urine Opiates Screen POS (NEG) Urine Methadone, Qualitative NEG (NEG) Urine Barbiturates NEG (NEG) Urine Phencyclidine (PCP) Level NEG (NEG) Ur Amphetamine/Methamphetamine NEG (NEG) MDMA (Ecstasy) Screen NEG (NEG) Urine Benzodiazepines Screen NEG (NEG) Urine Cocaine Metabolite NEG (NEG) Urine Marijuana (THC) NEG (NEG) Laboratory results reviewed by me Medications Administered Medications (Trade) Dose Ordered Sig/Shruthi Route Start Time Stop Time Status Last Admin Dose Admin Glimepiride (Amaryl Tab) 2 mg NOW ONCE PO 07/04/16 18:45 07/04/16 18:46 DC 07/04/16 19:00 2 MG Topiramate (Topamax Tab) 25 mg NOW STAT PO 07/04/16 21:04 07/04/16 21:06 DC 07/04/16 21:43 25 MG Ranitidine HCl (zANTac TAB) 300 mg NOW ONCE PO 07/04/16 21:15 07/04/16 21:16 DC 07/04/16 21:42 300 MG Hydroxyzine HCl (Vistaril Tab) 75 mg NOW STAT PO 07/04/16 21:08 07/04/16 21:12 DC 07/04/16 21:42 75 MG Cyclobenzaprine HCl (Flexeril Tab) 10 mg NOW STAT PO 07/04/16 21:08 07/04/16 21:12 DC 07/04/16 21:44 10 MG Zolpidem Tartrate (Ambien Tab) 10 mg NOW STAT PO 07/04/16 21:08 07/04/16 21:12 DC 07/04/16 21:43 10 MG Trazodone HCl (Desyrel Tab) 50 mg NOW ONCE PO 07/04/16 21:15 07/04/16 21:16 DC 07/04/16 21:42 50 MG Doxazosin Mesylate (Cardura Tab) 2 mg NOW STAT PO 07/04/16 21:08 07/04/16 21:12 DC 07/04/16 21:43 2 MG Tapentadol (Nucynta Tab) 100 mg NOW STAT PO 07/04/16 21:08 07/04/16 21:12 DC 07/04/16 21:41 100 MG ED Course 1648: The patient was evaluated in room B11B. A complete history and physical exam was performed. 1729: I reevaluated the patient. She is feeling fine. She is waiting for the director of casework services. 1844: Glimepiride 2 mg PO. 2011: We are still waiting on a bed for her. 2102: The patient requests her night medications. 2103: Topamax Tab 25 mg PO. 2107: Tapentadol 100 mg PO, Cardura Tab 2 mg PO, Ambien Tab 10 mg, Flexeril Tab 10 mg PO, Vistaril Tab 75 mg PO. 2114: Desyrel Tab 50 mg PO, Ranitidine HCl 300 mg PO. Medical Decision Triage Nursing notes reviewed. The patient's presentation and history were concerning for mood disorder. Etiologies such as mood disorder, toxicologic, infection, hypoglycemia, electrolyte abnormalities, cardiac sources, intracerebral event, neurologic, as well as others were entertained. The patient was evaluated. She was given her evening medications. She had a slight leukocytosis on CBC but negative urinalysis. Remainder of her chemistries were unremarkable. Her glucose was 278. Tylenol, salicylate, and alcohol levels were negative. The patient was reassessed and is doing well. She declined dinner. She is currently being evaluated by [facility] for inpatient treatment. The patient's case was signed out to Dr. Blackman at the change of shift. The chart was completed utilizing [employer] Speech voice recognition software. Grammatical errors, random word insertions, pronoun errors, and incomplete sentences are an occasional consequence of this system due to software limitations, ambient noise, and hardware issues. Any formal questions or concerns about the content, text, or information contained within the body of this dictation should be directly addressed to the physician for clarification. Impression Primary Impression: Mood disorder Scribe Attestation The scribe's documentation has been prepared under my direction and personally reviewed by me in its entirety. I confirm that the note above accurately reflects all work, treatment, procedures, and medical decision making performed by me. Departure Information Dispostion Still a Patient Referrals Diogo Armstrong M.D. (PCP) Patient Instructions My [facility]
--- NOTE | 2016-07-05 01:04 | EMERGENCY ROOM VISIT NOTE ---
ED Visit Note Patient signed out to me awaiting placement. 201. Still waiting. Signed out to Dr. Mata.
[2016-07-05] MEDS ORDERED: METHYLPHENIDATE 20 MG TAB PO STA (04:25)
[2016-07-05] MEDS ORDERED: SITAGLIPTIN 100 MG TAB PO STA (04:25)
[2016-07-05] MEDS ORDERED: TAPENTADOL HCL 50 MG TAB PO STA (04:25)
[2016-07-05] MEDS ORDERED: METHYLPHENIDATE HCL 10 MG TAB PO STA (04:55)
--- NOTE | 2016-07-05 05:27 | EMERGENCY ROOM VISIT NOTE ---
ED Visit Note First contact with patient: 01:28 This case was signed out to me at change of shift. The bed search was suspended. The patient has been resting comfortably throughout the night. 0525: The patient's morning medications were ordered. She is sleeping at this time. 0630: The case will be signed out to Dr. Lynne at change of shift awaiting the bed search to resume.
--- NOTE | 2016-07-05 11:13 | EMERGENCY ROOM VISIT NOTE ---
ED Visit Note Received patient in signout at change of shift from Dr. Janet Collins. History and physical verified by me. Patient has been accepted at [facility]. Patient will be transported via [facility] with elopement precautions in place. No medical orders. Problem List Medical Problems: (1) Borderline personality disorder Status: Chronic (2) Calculus, ureter Status: Resolved (3) Chronic back pain Status: Chronic (4) chronic neck pain Status: Chronic (5) Diabetes Status: Chronic (6) Kidney stone Status: Chronic Current/Historical Medications Scheduled Cholecalciferol (Vitamin D 1000 Unit), 1,000 INTER.UNIT PO DAILY Cyanocobalamin (Cyanocobalamin), 1,000 MCG INJ Q2W Cyclobenzaprine Hcl (Flexeril), 10 MG PO BID Doxazosin Mesylate (Cardura), 2 MG PO HS Glimepiride (Glimepiride), 1 TAB PO BIDM Hydromorphone Hcl (Dilaudid), 4 MG PO Q4 Hydroxyzine Pamoate (Vistaril), 75 MG PO HS Medroxyprogesterone Acetate (C (Medroxyprogesterone Aceta), 150 MG IM Q3MO Methylphenidate (Ritalin), 10 MG PO noon Methylphenidate (Ritalin), 20 MG PO QAM Omeprazole (Prilosec), 40 MG PO DAILY Prednisone (Prednisone), 10 MG PO DAILY Ranitidine (Zantac), 600 MG PO HS Sitagliptin Phosphate (Januvia), 100 MG PO DAILY Tapentadol Hcl (Nucynta), 100 MG PO TID Topiramate (Topamax), 25 MG PO QPM Scheduled PRN Albuterol Sulfate (Proair Respiclick), 2 PUFFS INH Q4H PRN for Shortness of Breath Clonazepam (Klonopin), 0.5 MG PO DAILY PRN for Depression Hydroxyzine Pamoate (Vistaril), 25 MG PO BID PRN for Anxiety Lorazepam (Ativan), 0.5 MG PO DAILY PRN for seizure aura Promethazine Hcl (Phenergan), 25 MG PO Q6H PRN for Nausea Sumatriptan Succinate (Imitrex), 200 MG PO DAILY PRN for Headache Sumatriptan Succinate (Imitrex Nasal [place]), 1 SPRAY NA UD PRN for Headache Tamsulosin Hcl (Flomax), 0.4 MG PO DAILY PRN for kidney stones Trazodone Hcl (Trazodone), 50 MG PO HS PRN for Sleep Zolpidem Tartrate (Ambien), 10 MG PO HS PRN for Sleep Miscellaneous Medications Sumatriptan Succinate (Imitrex Statdose) Allergies Coded Allergies: Morphine (Verified Allergy, Severe, "HEART STOPS BEATING", 07/04/16) TOLERATES OXY IR, TRAMADOL Black Pepper (Verified Allergy, Mild, 07/04/16) Ketorolac (Verified Allergy, Mild, ITCHY, BUT CAN STILL TAKE IT, 07/04/16) Mushroom (Verified Allergy, Mild, 07/04/16) Sulfa Drugs (Verified Allergy, Mild, 07/04/16) Terfenadine (Verified Allergy, Mild, RASH, 07/04/16) Antihistamines, Chlorpheniramine-ty (Verified Allergy, Unknown, "ANTIHISTAMINE ALLERGY" - NO ALLERGY TO CLARITIN PER PT, 07/04/16) Antihistamines, Diphenhydramine-typ (Verified Allergy, Unknown, "ANTIHISTAMINE ALLERGY"- NO ALLERGY TO CLARITIN PER PT, 07/04/16) Aspartame (Unverified Allergy, Unknown, HIVES, 07/04/16) SOB ALSO Fexofenadine (Verified Allergy, Unknown, 07/04/16) Shellfish (Unverified Adverse Reaction, Severe, HIVES, 07/04/16) Vital Signs Date Time Temp Pulse Resp B/P Pulse Ox O2 Delivery O2 Flow Rate FiO2 07/05/16 08:07 97 20 113/79 96 Room Air 07/04/16 23:00 88 20 144/72 Room Air 07/04/16 17:49 109 20 148/89 97 Room Air 07/04/16 16:05 36.8 128 20 173/128 98 Room Air Laboratory Results 07/04/16 16:45 Red Blood Count 4.87, Mean Corpuscular Volume 80.7, Mean Corpuscular Hemoglobin 27.3, Mean Corpuscular Hemoglobin Concent 33.8, Mean Platelet Volume 9.6, Neutrophils (%) (Auto) 80.1, Lymphocytes (%) (Auto) 15.7, Monocytes (%) (Auto) 3.8, Eosinophils (%) (Auto) 0.0, Basophils (%) (Auto) 0.1, Neutrophils # (Auto) 9.41, Lymphocytes # (Auto) 1.84, Monocytes # (Auto) 0.45, Eosinophils # (Auto) 0.00, Basophils # (Auto) 0.01 07/04/16 16:45 Test 07/04/16 16:45 07/04/16 16:47 White Blood Count 11.75 K/uL (4.8-10.8) Red Blood Count 4.87 M/uL (4.2-5.4) Hemoglobin 13.3 g/dL (12.0-16.0) Hematocrit 39.3 % (37-47) Mean Corpuscular Volume 80.7 fL (80-100) Mean Corpuscular Hemoglobin 27.3 pg (25-34) Mean Corpuscular Hemoglobin Concent 33.8 g/dl (32-36) Platelet Count 357 K/uL (130-400) Mean Platelet Volume 9.6 fL (7.4-10.4) Neutrophils (%) (Auto) 80.1 % Lymphocytes (%) (Auto) 15.7 % Monocytes (%) (Auto) 3.8 % Eosinophils (%) (Auto) 0.0 % Basophils (%) (Auto) 0.1 % Neutrophils # (Auto) 9.41 K/uL (1.4-6.5) Lymphocytes # (Auto) 1.84 K/uL (1.2-3.4) Monocytes # (Auto) 0.45 K/uL (0.11-0.59) Eosinophils # (Auto) 0.00 K/uL (0-0.5) Basophils # (Auto) 0.01 K/uL (0-0.2) RDW Standard Deviation 40.6 fL (36.4-46.3) RDW Coefficient of Variation 13.8 % (11.5-14.5) Immature Granulocyte % (Auto) 0.3 % Immature Granulocyte # (Auto) 0.04 K/uL (0.00-0.02) Anion Gap 10.0 mmol/L (3-11) Est Creatinine Clear Calc Drug Dose 121.1 ml/min Estimated GFR () 94.7 Estimated GFR (Non- 81.7 BUN/Creatinine Ratio 15.3 (10-20) Calcium Level 9.3 mg/dl (8.5-10.1) Total Bilirubin 0.4 mg/dl (0.2-1) Direct Bilirubin < 0.1 mg/dl (0-0.2) Aspartate Amino Transf (AST/SGOT) 14 U/L (15-37) Alanine Aminotransferase (ALT/SGPT) 32 U/L (12-78) Alkaline Phosphatase 89 U/L (45-117) Total Protein 8.1 gm/dl (6.4-8.2) Albumin 3.9 gm/dl (3.4-5.0) Thyroid Stimulating Hormone (TSH) 2.720 uIu/ml (0.300-4.500) Human Chorionic Gonadotropin, Qual NEG (NEG) Salicylates Level < 1.7 mg/dl (2.8-20) Acetaminophen Level < 2 ug/ml (10-30) Ethyl Alcohol mg/dL < 3.0 mg/dl (0-3) Urine Color YELLOW Urine Appearance CLEAR (CLEAR) Urine pH 5.5 (4.5-7.5) Urine Specific [place] 1.023 (1.000-1.030) Urine Protein NEG (NEG) Urine Glucose (UA) 2+ (NEG) Urine Ketones 1+ (NEG) Urine Occult Blood 1+ (NEG) Urine Nitrite NEG (NEG) Urine Bilirubin NEG (NEG) Urine Urobilinogen NEG (NEG) Urine Leukocyte Esterase NEG (NEG) Urine WBC (Auto) 1-5 /hpf (0-5) Urine RBC (Auto) 0-4 /hpf (0-4) Urine Hyaline Casts (Auto) 1-5 /lpf (0-5) Urine Epithelial Cells (Auto) >30 /lpf (0-5) Urine Bacteria (Auto) NEG (NEG) Urine Opiates Screen POS (NEG) Urine Methadone, Qualitative NEG (NEG) Urine Barbiturates NEG (NEG) Urine Phencyclidine (PCP) Level NEG (NEG) Ur Amphetamine/Methamphetamine NEG (NEG) MDMA (Ecstasy) Screen NEG (NEG) Urine Benzodiazepines Screen NEG (NEG) Urine Cocaine Metabolite NEG (NEG) Urine Marijuana (THC) NEG (NEG) Medications Administered Medications (Trade) Dose Ordered Sig/Shruthi Route Start Time Stop Time Status Last Admin Dose Admin Glimepiride (Amaryl Tab) 2 mg NOW ONCE PO 07/04/16 18:45 07/04/16 18:46 DC 07/04/16 19:00 2 MG Topiramate (Topamax Tab) 25 mg NOW STAT PO 07/04/16 21:04 07/04/16 21:06 DC 07/04/16 21:43 25 MG Ranitidine HCl (zANTac TAB) 300 mg NOW ONCE PO 07/04/16 21:15 07/04/16 21:16 DC 07/04/16 21:42 300 MG Hydroxyzine HCl (Vistaril Tab) 75 mg NOW STAT PO 07/04/16 21:08 07/04/16 21:12 DC 07/04/16 21:42 75 MG Cyclobenzaprine HCl (Flexeril Tab) 10 mg NOW STAT PO 07/04/16 21:08 07/04/16 21:12 DC 07/04/16 21:44 10 MG Zolpidem Tartrate (Ambien Tab) 10 mg NOW STAT PO 07/04/16 21:08 07/04/16 21:12 DC 07/04/16 21:43 10 MG Trazodone HCl (Desyrel Tab) 50 mg NOW ONCE PO 07/04/16 21:15 07/04/16 21:16 DC 07/04/16 21:42 50 MG Doxazosin Mesylate (Cardura Tab) 2 mg NOW STAT PO 07/04/16 21:08 07/04/16 21:12 DC 07/04/16 21:43 2 MG Tapentadol (Nucynta Tab) 100 mg NOW STAT PO 07/04/16 21:08 07/04/16 21:12 DC 07/04/16 21:41 100 MG Tapentadol (Nucynta Tab) 100 mg NOW STAT PO 07/05/16 04:25 07/05/16 04:29 DC 07/05/16 07:47 100 MG Prednisone (PredniSONE TAB) 10 mg NOW STAT PO 07/05/16 04:25 07/05/16 04:29 DC 07/05/16 07:46 10 MG Sitagliptin Phosphate (Januvia Tab) 100 mg NOW STAT PO 07/05/16 04:25 07/05/16 04:29 DC 07/05/16 07:46 100 MG Methylphenidate HCl (Ritalin Tab) 20 mg NOW STAT PO 07/05/16 04:55 07/05/16 04:56 DC 07/05/16 07:45 20 MG Departure Information Impression Primary Impression: Mood disorder Dispostion Home / Self-Care Condition GOOD Referrals Diogo Armstrong M.D. (PCP) Forms HOME CARE DOCUMENTATION FORM, School Instructions, Work Instructions, IMPORTANT VISIT INFORMATION Patient Instructions My [facility] Additional Instructions Go directly to [facility]
[2016-07-05 13:39] VITALS: BP 126/87; PULSE 112; O2SAT 99
[2016-07-08 12:34] LABS: COD UR NEGATIVE NG/ML (CUTOFF=50); HYDROCOD UR NEGATIVE NG/ML (CUTOFF=50); HYDROMOR UR 6590 NG/ML (CUTOFF=50); MORPHINE UR NEGATIVE NG/ML (CUTOFF=50); NORHYDROCODONE CONF UR NEGATIVE NG/ML (CUTOFF=50); OXYMORPH UR NEGATIVE NG/ML (CUTOFF=50)
== END 2016-07-05 14:00 ==
LOC: C.EDB 16:03 → C.EDA 07-05 14:00
DX: F39 Unspecified mood [affective] disorder (principal); F60.3 Borderline personality disorder; Z87.442 Personal history of urinary calculi; M54.9 Dorsalgia, unspecified; M54.2 Cervicalgia; G89.29 Other chronic pain; E11.9 Type 2 diabetes mellitus without complications; Z82.49 Family history of ischemic heart disease and other diseases of the circulatory system

== ENCOUNTER → 2016-07-25 | Outpatient (CLI) | payer OTHER ==
[~2016-07-25] MED LIST changes: +ALBU18002 INH; -ALBU1AER9 INH; +CLON0.5T3 PO; +CLR10 PO; -CYAN10002; +CYNI1000 INJ; +GLIM2TAB2 PO; +LEVO1TAB33 PO; -MEDR150I IM; +MEDR150I19 IM; +METF750T PO; +NCYSR50 PO; +PANT40TA PO; +PERFLUTREN LIPID MICROSPHERE (DEFINITY) IV ONE
--- NOTE | 2016-07-25 15:16 | ECHOCARDIOGRAM REPORT ---
*NOTICE TO RECEIVING LIBERTARIAN AGENCY This information is strictly Confidential and protected under [place] law. [place] law prohibits you from making any further disclosure of this information unless further disclosure is expressly permitted by the written consent of the person to whom it pertains or is authorized by law. A general authorization for the release of medical or other information is not sufficient for this purpose. Hospital accepts no responsibility if the information is made available to any other person, INCLUDING THE PATIENT. Interpretation Summary * Name: AUGUST GR Study Date: 07/25/2016 01:45 PM BP: 155/76 mmHg * Patient Location: [facility] HR: 74 * : 1980 (M/d/yyyy) Gender: Female Height: 67 in * Age: 36 yrs Ethnicity: CA Weight: 290 lb * Ordering Physician: Diogo Armstrong * Referring Physician: Diogo Armstrong * Performed By: Selena Atwood * * Reason For Study: DYSPNEA * BSA: 2.4 m2 * -- Conclusions -- * Technically Limited Study * 1. Normal LV size. Mild concentric LVH. * 2. Normal LV systolic function. LVEF 60-65%. * 3. Grossly normal RV size and function. * 4. No significant valvular pathology. * 5. No prior studies for comparison. Procedure Details * A complete two-dimensional transthoracic echocardiogram was performed (2D, M-mode, Doppler and color flow Doppler). * The study was technically difficult. * There were technical limitations due to patient'sbody habitus * A contrast injection of Definity was performed to improve assessment of LV function. * Contrast was injected into an intravenous site in the right arm. * One vial of Definity ultrasound contrast was diluted in normal saline to a total volume of 10 ml. A total of '2' ml of solution was administered during imaging. * Lot # [id number] of Definity utilized for procedure. * Expiration date 07/30. * The attending nurse who injected the contrast agent was LD HARRELL RN. Left Ventricle * The left ventricle is grossly normal size. * There is mild concentric left ventricular hypertrophy. * Ejection Fraction = 60-65%. * No regional wall motion abnormalities noted. * Abnormal septal motion. Right Ventricle * The right ventricle is grossly normal size. * The right ventricular systolic function is normal as assessed by tricuspid annular plane systolic excursion (TAPSE) (normal >1.5 cm). Atria * The left atrial size is normal. * Right atrial size is normal. * No ASD detected; PFO is not assessed. Mitral Valve * The mitral valve is grossly normal. * There is no mitral valve stenosis. * Significant mitral regurgitation is absent. Tricuspid Valve * The tricuspid valve is not well visualized. Aortic Valve * The aortic valve is not well visualized. * No hemodynamically significant valvular aortic stenosis. * There is no significant aortic regurgitation. Pulmonic Valve * The pulmonary valve is inadequately visualized, but the Doppler data is adequate for interpretation. * There is no pulmonic valvular stenosis. * There is no significant pulmonary regurgitation. Great Vessels * The aortic root and proximal ascending aorta are normal sized. * No Doppler or imaging evidence of an aortic coarctation. Pericardium/Pleural * There is no pericardial effusion. Great Vessels * Normal inferior vena cava size and collapsability with sniff indicates a normal right atrial pressure of 3 mmHg Left Ventricular Diastolic Function * No findings consistent with diastolic dysfunction. MMode 2D Measurements and Calculations IVSd 1.4 cm IVSs 2.1 cm LVIDd 5.4 cm LVIDs 3.4 cm LVPWd 1.1 cm LVPWs 1.8 cm IVS/LVPW 1.2 FS 38.0 % EDV(Teich) 142.9 ml ESV(Teich) 46.2 ml EF(Teich) 67.7 % EDV(cubed) 159.8 ml ESV(cubed) 38.0 ml EF(cubed) 76.2 % % IVS thick 52.2 % % LVPW thick 58.8 % LV mass(C)d 281.9 grams LV mass(C)dI 119.1 grams/m\S\2 LV mass(C)s 284.8 grams LV mass(C)sI 120.3 grams/m\S\2 SV(Teich) 96.7 ml SI(Teich) 40.8 ml/m\S\2 SV(cubed) 121.8 ml SI(cubed) 51.4 ml/m\S\2 ACS 1.0 cm asc Aorta Diam 2.5 cm LVOT diam 1.6 cm LVOT area 1.9 cm\S\2 LVAd ap4 34.4 cm\S\2 LVLd ap4 8.5 cm EDV(MOD-sp4) 112.1 ml EDV(sp4-el) 117.5 ml LVAs ap4 17.6 cm\S\2 LVLs ap4 6.5 cm ESV(MOD-sp4) 38.7 ml ESV(sp4-el) 40.7 ml EF(MOD-sp4) 65.4 % EF(sp4-el) 65.4 % LVAd ap2 28.2 cm\S\2 LVLd ap2 8.5 cm EDV(MOD-sp2) 78.0 ml EDV(sp2-el) 80.0 ml LVAs ap2 15.8 cm\S\2 LVLs ap2 7.5 cm ESV(MOD-sp2) 27.5 ml ESV(sp2-el) 28.0 ml EF(MOD-sp2) 64.7 % EF(sp2-el) 65.0 % LVLd %diff -0.90 % EDV(MOD-bp) 94.2 ml LVLs %diff 14.2 % ESV(MOD-bp) 34.9 ml EF(MOD-bp) 63.0 % SV(MOD-sp4) 73.4 ml SI(MOD-sp4) 31.0 ml/m\S\2 SV(MOD-sp2) 50.5 ml SI(MOD-sp2) 21.3 ml/m\S\2 SV(MOD-bp) 59.3 ml SI(MOD-bp) 25.1 ml/m\S\2 SV(sp4-el) 76.8 ml SI(sp4-el) 32.4 ml/m\S\2 SV(sp2-el) 52.0 ml SI(sp2-el) 21.9 ml/m\S\2 Doppler Measurements and Calculations MV E max christy 102.2 cm/sec MV A max christy 65.2 cm/sec MV E/A 1.6 MV dec time 0.24 sec Ao V2 max 146.0 cm/sec Ao max PG 8.5 mmHg Ao max PG (full) 1.7 mmHg INDU(V,A) 1.7 cm\S\2 INDU(V,D) 1.7 cm\S\2 LV V1 max PG 6.8 mmHg LV V1 max 130.3 cm/sec PA V2 max 91.7 cm/sec PA max PG 3.4 mmHg
--- NOTE | 2016-07-29 16:12 | PULMONARY FUNCTION TEST ---
NAME OF STUDY: Pulmonary function tests. FINDING OF STUDY: Spirometry is normal. Repeat study done following bronchodilator showed no change in function. Flow volume loops are normal. Lung volumes showed a low total lung capacity and severely low residual volume. FRC was low. These results were out of proportion to the spirometric findings, which were normal. Thus, I suspect there may have been technical problems doing the lung volumes. Diffusion capacity is 72% of predicted, which is at the lower limits of normal. Advise clinical correlation.
== END | disposition home or self-care (01) ==
LOC: C.RC 12:33
PROVIDERS: ATTEND Family Medicine
DX: R06.00 Dyspnea, unspecified (principal)

== ENCOUNTER → 2016-10-14 | Outpatient (CLI) | payer OTHER ==
[~2016-10-14] MED LIST changes: -CLR10 PO; -LEVO1TAB33 PO; -METF750T PO; -NCYSR50 PO; -PANT40TA PO; -PERFLUTREN LIPID MICROSPHERE (DEFINITY) IV ONE
[2016-10-14 15:22] LABS: BASO % 0.1 %; BASO ABS # 0.01 K/uL (0-0.2); COMPLETE YES; IG% 0.3 %; LYMPH % 29.4 %; LYMPH ABS # 3.05 K/uL (1.2-3.4); MEAN CELL VOLUME 82.5 fL (80-100); MEAN CORPUSCULAR HEMOGLOBIN 26.3 pg (25-34); MEAN CORPUSCULAR HGB CONC 31.9 g/dl (32-36); MEAN PLATELET VOLUME 9.5 fL (7.4-10.4); MONO % 3.4 %; NEUT % 66.8 %; PLATELET COUNT 412 K/uL (130-400); RED BLOOD COUNT 5.09 M/uL (4.2-5.4); WHITE BLOOD COUNT 10.38 K/uL (4.8-10.8)
[2016-10-14 15:51] LABS: ALT/SGPT 22 U/L (12-78); AST/SGOT 10 U/L (15-37); BLOOD UREA NITROGEN 16 mg/dl (7-18); BUN/CREATININE RATIO 19.5 (10-20); CALCIUM 9.3 mg/dl (8.5-10.1); CARBON DIOXIDE 25 mmol/L (21-32); CHLORIDE 105 mmol/L (98-107); CHOLESTEROL 169 mg/dl (0-200); CREATININE 0.81 mg/dl (0.60-1.20); GLUCOSE 83 mg/dl (70-99); POTASSIUM 3.9 mmol/L (3.5-5.1); SODIUM 137 mmol/L (136-145); TRIGLYCERIDES 78 mg/dl (0-150); URIC ACID 3.8 mg/dl (2.6-7.2); VERY LOW DENSITY LIPOPROT CALC 16 mg/dl
[2016-10-14 16:00] LABS: ALB/GLOB RATIO 0.9 (0.9-2); ALKALINE PHOSPHATASE 97 U/L (45-117); CHOLESTEROL/HDL RATIO 2.6; HDL CHOLESTEROL 66 mg/dl; LDL CHOLESTEROL CALCULATED 87 mg/dl; TOTAL IRON BINDING CAPACITY 400 mcg/dl (250-450)
[2016-10-15 07:00] LABS: ESTIMATED AVERAGE GLUCOSE 180 mg/dl; HA1C FLAG Normal (Normal)
== END | disposition home or self-care (01) ==
LOC: C.LAB 14:27
PROVIDERS: ATTEND Family Medicine
DX: R73.09 Other abnormal glucose (principal); E55.9 Vitamin D deficiency, unspecified; D51.9 Vitamin B12 deficiency anemia, unspecified; E78.9 Disorder of lipoprotein metabolism, unspecified; R53.83 Other fatigue

== ENCOUNTER → 2016-10-21 | Outpatient (CLI) | payer OTHER ==
[2016-10-24 11:33] LABS: GAMMA GLOBULIN 1.1 G/DL (0.8-1.7); TOTAL PROTEIN 7.4 G/DL (6.2-8.3)
== END | disposition home or self-care (01) ==
LOC: C.LAB 14:42
PROVIDERS: ATTEND Family Medicine
DX: R53.83 Other fatigue (principal); E11.9 Type 2 diabetes mellitus without complications

== ENCOUNTER → 2016-11-26 | Outpatient (CLI) | payer OTHER | END | disposition home or self-care (01) | LOC: C.LABSPEC 11:07 | PROVIDERS: ATTEND Family Medicine | DX: N39.0 Urinary tract infection, site not specified (principal) ==

== ENCOUNTER → 2016-12-17 | Outpatient (CLI) | payer OTHER ==
[2016-12-17 13:23] LABS: BASO % 0.1 %; BASO ABS # 0.01 K/uL (0-0.2); COMPLETE YES; HEMATOCRIT 41.6 % (37-47); IG% 0.2 %; LYMPH % 22.7 %; LYMPH ABS # 2.31 K/uL (1.2-3.4); MEAN CELL VOLUME 83.4 fL (80-100); MEAN CORPUSCULAR HEMOGLOBIN 25.9 pg (25-34); MEAN PLATELET VOLUME 9.8 fL (7.4-10.4); MONO % 4.3 %; NEUT % 72.7 %; PLATELET COUNT 384 K/uL (130-400); RED BLOOD COUNT 4.99 M/uL (4.2-5.4); WHITE BLOOD COUNT 10.16 K/uL (4.8-10.8)
[2016-12-17 13:35] LABS: ESTIMATED AVERAGE GLUCOSE 189 mg/dl; HA1C FLAG Normal (Normal)
[2016-12-17 13:53] LABS: ALT/SGPT 23 U/L (12-78); AST/SGOT 12 U/L (15-37); BLOOD UREA NITROGEN 9 mg/dl (7-18); BUN/CREATININE RATIO 13.5 (10-20); CARBON DIOXIDE 26 mmol/L (21-32); CHLORIDE 102 mmol/L (98-107); CHOLESTEROL 182 mg/dl (0-200); CREATININE 0.68 mg/dl (0.60-1.20); GLUCOSE 165 mg/dl (70-99); SODIUM 135 mmol/L (136-145); TRIGLYCERIDES 105 mg/dl (0-150); URIC ACID 3.1 mg/dl (2.6-7.2); VERY LOW DENSITY LIPOPROT CALC 21 mg/dl
[2016-12-17 14:02] LABS: ALB/GLOB RATIO 0.8 (0.9-2); ALKALINE PHOSPHATASE 81 U/L (45-117); CHOLESTEROL/HDL RATIO 3.3; HDL CHOLESTEROL 55 mg/dl; LDL CHOLESTEROL CALCULATED 106 mg/dl; TOTAL IRON BINDING CAPACITY 344 mcg/dl (250-450)
== END | disposition home or self-care (01) ==
LOC: C.LAB 12:03
PROVIDERS: ATTEND Family Medicine
DX: E55.9 Vitamin D deficiency, unspecified (principal); D51.9 Vitamin B12 deficiency anemia, unspecified; E78.9 Disorder of lipoprotein metabolism, unspecified; R53.83 Other fatigue; R73.09 Other abnormal glucose

== ENCOUNTER 2017-02-28 12:29 | Emergency (ER) | payer OTHER ==
[~2017-02-28] VITALS: Ht 170.2 cm; Wt 131.7 kg
[2017-02-28 12:34] VITALS: TEMP 37.1; Ht 170.2 cm; Wt 131.7 kg
[2017-02-28] MEDS ORDERED: LACTATED RINGER'S 1000ML 1,000 ML IV ONE (13:15)
[2017-02-28] MEDS ORDERED: ONDANSETRON INJ 2 MG/ML 2 ML VIAL IV PRN (13:15)
--- NOTE | 2017-02-28 13:15 | EMERGENCY ROOM VISIT NOTE ---
History First contact with patient: 13:01 Chief Complaint: ILLNESS Stated Complaint: VOMITING, DIARRHEA, FEVER History of Present Illness The patient is a 37 year old female who presents to the Emergency Room with complaints of nausea, vomiting and diarrhea that started last night. The patient denies any significant abdominal pain. The vomiting has been worse than the diarrhea. She only had diarrhea one time. She is having difficulty keeping down liquids. Her primary care physician prescribed Phenergan, which she has been taking with no relief. The patient is also currently on Levaquin for bronchitis. She also reports running a fever. Last night, it was 100.6F. No recent travel. Review of Systems 10 system review performed and negative unless noted in HPI or below Past Medical/Surgical History Medical Problems: (1) Borderline personality disorder (2) Calculus, ureter (3) Chronic back pain (4) chronic neck pain (5) Diabetes (6) Kidney stone Family History Hypertension Kidney disease Social History Smoking Status: Never Smoker Alcohol Use: none Drug Use: none Marital Status: single Housing Status: lives with family Occupation Status: employed Current/Historical Medications Scheduled Cholecalciferol (Vitamin D 1000 Unit), 1,000 INTER.UNIT PO DAILY Cyanocobalamin (Cyanocobalamin), 1,000 MCG INJ Q2W Cyclobenzaprine Hcl (Flexeril), 10 MG PO BID Doxazosin Mesylate (Cardura), 2 MG PO HS Glimepiride (Glimepiride), 1 TAB PO BIDM Hydroxyzine Pamoate (Vistaril), 75 MG PO HS Levofloxacin (Levaquin), 500 MG PO DAILY Loratadine (Claritin), 10 MG PO DAILY Medroxyprogesterone Acetate (C (Medroxyprogesterone Aceta), 150 MG IM Q3MO Metformin Hcl (Glucophage Er), 750 MG PO DAILY Pantoprazole (Protonix), 40 MG PO DAILY Ranitidine (Zantac), 600 MG PO HS Sitagliptin Phosphate (Januvia), 100 MG PO DAILY Tapentadol HCl (Nucynta ER), 100 MG PO HS Tapentadol Hcl (Nucynta), 100 MG PO TID Topiramate (Topamax), 25 MG PO QPM Scheduled PRN Albuterol Sulfate (Proair Respiclick), 2 PUFFS INH Q4H PRN for Shortness of Breath Clonazepam (Klonopin), 0.5 MG PO DAILY PRN for Depression Hydroxyzine Pamoate (Vistaril), 25 MG PO BID PRN for Anxiety Lorazepam (Ativan), 0.5 MG PO DAILY PRN for seizure aura Promethazine Hcl (Phenergan), 25 MG PO Q6H PRN for Nausea Promethazine Hcl (Phenergan), 25 MG PO Q6H PRN for Nausea Tamsulosin Hcl (Flomax), 0.4 MG PO DAILY PRN for kidney stones Trazodone Hcl (Trazodone), 50 MG PO HS PRN for Sleep Zolpidem Tartrate (Ambien), 10 MG PO HS PRN for Sleep Miscellaneous Medications Sumatriptan Succinate (Imitrex Statdose) Physical Exam Vital Signs Date Time Temp Pulse Resp B/P (MAP) Pulse Ox O2 Delivery O2 Flow Rate FiO2 02/28/17 16:23 79 140/88 99 02/28/17 14:59 80 127/96 96 Room Air 02/28/17 12:34 37.1 92 20 148/95 96 Room Air Physical Exam VITALS: Vitals are noted on the nurse's note and reviewed by myself. Vital signs stable. GENERAL: 37-year-old female, in no acute distress, nondiaphoretic, well- developed well-nourished. SKIN: The skin was without rashes, erythema, edema, or bruising. HEAD: Normocephalic atraumatic. MOUTH: Mucous membranes fairly moist. NECK: Supple without nuchal rigidity. No lymphadenopathy No JVD. HEART: Regular rate and rhythm without murmurs gallops or rubs. LUNGS: Clear to auscultation bilaterally without wheezes, rales or rhonchi. No accessory muscle use. ABDOMEN: Positive bowel sounds x 4.Soft, nontender, without organomegaly. No guarding or rebound tenderness. MUSCULOSKELETAL: No muscle atrophy, erythema, or edema noted.Strength 5/5 throughout. NEURO: Patient was alert and oriented to person place and time. Normal sensation to touch. No focal neurological deficits. Medical Decision & Procedures Laboratory Results 02/28/17 13:30 Red Blood Count 5.07, Mean Corpuscular Volume 83.0, Mean Corpuscular Hemoglobin 27.0, Mean Corpuscular Hemoglobin Concent 32.5, Mean Platelet Volume 10.1, Neutrophils (%) (Auto) 77.9, Lymphocytes (%) (Auto) 17.3, Monocytes (%) (Auto) 4.5, Eosinophils (%) (Auto) 0.0, Basophils (%) (Auto) 0.1, Neutrophils # (Auto) 8.35, Lymphocytes # (Auto) 1.85, Monocytes # (Auto) 0.48, Eosinophils # (Auto) 0.00, Basophils # (Auto) 0.01 02/28/17 13:30 Test 02/28/17 13:30 02/28/17 13:35 White Blood Count 10.71 K/uL (4.8-10.8) Red Blood Count 5.07 M/uL (4.2-5.4) Hemoglobin 13.7 g/dL (12.0-16.0) Hematocrit 42.1 % (37-47) Mean Corpuscular Volume 83.0 fL (80-100) Mean Corpuscular Hemoglobin 27.0 pg (25-34) Mean Corpuscular Hemoglobin Concent 32.5 g/dl (32-36) Platelet Count 329 K/uL (130-400) Mean Platelet Volume 10.1 fL (7.4-10.4) Neutrophils (%) (Auto) 77.9 % Lymphocytes (%) (Auto) 17.3 % Monocytes (%) (Auto) 4.5 % Eosinophils (%) (Auto) 0.0 % Basophils (%) (Auto) 0.1 % Neutrophils # (Auto) 8.35 K/uL (1.4-6.5) Lymphocytes # (Auto) 1.85 K/uL (1.2-3.4) Monocytes # (Auto) 0.48 K/uL (0.11-0.59) Eosinophils # (Auto) 0.00 K/uL (0-0.5) Basophils # (Auto) 0.01 K/uL (0-0.2) RDW Standard Deviation 44.5 fL (36.4-46.3) RDW Coefficient of Variation 14.7 % (11.5-14.5) Immature Granulocyte % (Auto) 0.2 % Immature Granulocyte # (Auto) 0.02 K/uL (0.00-0.02) Anion Gap 6.0 mmol/L (3-11) Est Creatinine Clear Calc Drug Dose 144.8 ml/min Estimated GFR () 117.0 Estimated GFR (Non- 100.9 BUN/Creatinine Ratio 9.6 (10-20) Calcium Level 9.3 mg/dl (8.5-10.1) Total Bilirubin 0.5 mg/dl (0.2-1) Aspartate Amino Transf (AST/SGOT) 11 U/L (15-37) Alanine Aminotransferase (ALT/SGPT) 22 U/L (12-78) Alkaline Phosphatase 88 U/L (45-117) Total Protein 8.2 gm/dl (6.4-8.2) Albumin 3.7 gm/dl (3.4-5.0) Globulin 4.5 gm/dl (2.5-4.0) Albumin/Globulin Ratio 0.8 (0.9-2) Lipase 94 U/L (73-393) Urine Color YELLOW Urine Appearance CLOUDY (CLEAR) Urine pH 8.5 (4.5-7.5) Urine Specific [place] 1.022 (1.000-1.030) Urine Protein NEG (NEG) Urine Glucose (UA) NEG (NEG) Urine Ketones NEG (NEG) Urine Occult Blood NEG (NEG) Urine Nitrite NEG (NEG) Urine Bilirubin NEG (NEG) Urine Urobilinogen NEG (NEG) Urine Leukocyte Esterase SMALL (NEG) Urine WBC (Auto) 10-30 /hpf (0-5) Urine RBC (Auto) 5-10 /hpf (0-4) Urine Hyaline Casts (Auto) 1-5 /lpf (0-5) Urine Epithelial Cells (Auto) >30 /lpf (0-5) Urine Bacteria (Auto) 2+ (NEG) Urine Test NEG (NEG) Medications Administered Medications (Trade) Dose Ordered Sig/Shruthi Route Start Time Stop Time Status Last Admin Dose Admin Ondansetron HCl (Zofran Inj) 4 mg Q2H PRN IV 02/28/17 13:15 02/28/17 16:38 DC 02/28/17 14:57 4 MG Lactated Ringer's 1,000 ml @ 0 mls/hr Q0M ONCE IV 02/28/17 13:15 02/28/17 13:16 DC 02/28/17 13:31 0 MLS/HR Ondansetron HCl (ZOFRAN ODT 4MG Home Pack) 1 [facility] UD ONCE PO 02/28/17 16:00 02/28/17 16:01 DC 02/28/17 16:03 1 [facility] ED Course Patient was seen and examined Vital signs including blood pressure were reviewed medications list was verified with patient Labs were obtained, and a saline lock was established The patient was medicated with Zofran. She was hydrated with 1 L of lactated Ringer's Upon reevaluation, the patient was feeling better. She was given a trial of liquids. She tolerated this well. The patient was discussed with my supervising physician, who evaluated the patient. She is in agreement with my plan. I reviewed discharge instructions the patient. They voiced understanding and had no further questions. Medical Decision DIFFERENTIAL DIAGNOSIS: Gastroenteritis, Hepatitis, cholecystitis, cholangitis, biliary colic, pancreatitis, appendicitis, inguinal hernia, nephrolithiasis, inflammatory bowel disease, mesenteric adenitis, peptic ulcer disease, GERD, gastritis, pancreatitis,, bowel obstruction, splenic infarct, diverticulitis, mesenteric ischemia, metabolic, peritonitis, among others. This patient is a 37-year-old female that presents to the emergency department with complaints of nausea, vomiting, diarrhea and fever. Nontoxic in appearance. Her abdomen is nontender. There is no significant leukocytosis. I do not find imaging necessary. The patient was feeling better after fluids and Zofran. She was tolerating liquids. I believe she is stable to be discharged home. She will be sent home with a course of Zofran. She may alternate this with Phenergan as needed. She was instructed to continue a liquid diet for 24 hours, and then advance as tolerated. She was also instructed on proper hand hygiene. She agrees to return to emergency department with any new or worsening symptoms. This chart was completed in part utilizing [employer] Speech Voice Recognition software. Attempts were made to minimize the grammatical errors, random word insertions, pronoun errors and incomplete sentences. Any formal questions or concerns about the content, text or information contained within the body of this dictation should be directly addressed to the provider for clarification. Medication Reconcilliation Current Medication List: was personally reviewed by me Blood Pressure Screening Patient's blood pressure: Elevated blood pressure Blood pressure disposition: Elevated BP felt to be situational, Did not require urgent referral Impression Primary Impression: Vomiting Departure Information Dispostion Home / Self-Care Condition GOOD Prescriptions Promethazine Hcl (Phenergan) 25 Mg Tab 25 MG PO Q6H Y for Nausea, #10 TAB Prov: Casie Diaz PA-C 02/28/17 Referrals Diogo Armstrong M.D. (PCP) Patient Instructions ED Diet Vomiting Diarrhea, My [facility] Additional Instructions You were evaluated in the emergency department for vomiting, diarrhea and fever. This is likely due to a viral gastrointestinal illness. Please sticks to a clear liquid diet such as Sprite, broth and Gatorade for the next 24 hours. After 24 hours, please advance to a bland diet such as dry toast as tolerated. Alternate Zofran and Phenergan every 6 hours. Please wash hands frequently and thoroughly Please follow-up with your primary care physician if there is no improvement in the next 48 hours. Please return to the emergency department with any new or worsening symptoms.
[2017-02-28] MEDS ORDERED: NCYSR50 PO (13:29)
[2017-02-28] MEDS ORDERED: LEVO1TAB33 PO (13:29)
[2017-02-28] MEDS ORDERED: PANT40TA PO (13:29)
[2017-02-28] MEDS ORDERED: CLR10 PO (13:29)
[2017-02-28] MEDS ORDERED: METF750T PO (13:30)
[2017-02-28 13:58] LABS: BASO % 0.1 %; BASO ABS # 0.01 K/uL (0-0.2); COMPLETE YES; HEMATOCRIT 42.1 % (37-47); IG% 0.2 %; LYMPH % 17.3 %; LYMPH ABS # 1.85 K/uL (1.2-3.4); MEAN CORPUSCULAR HGB CONC 32.5 g/dl (32-36); MEAN PLATELET VOLUME 10.1 fL (7.4-10.4); MONO % 4.5 %; NEUT % 77.9 %; PLATELET COUNT 329 K/uL (130-400); RED BLOOD COUNT 5.07 M/uL (4.2-5.4); WHITE BLOOD COUNT 10.71 K/uL (4.8-10.8)
[2017-02-28 14:16] LABS: BUN/CREATININE RATIO 9.6 (10-20); CALCIUM 9.3 mg/dl (8.5-10.1); CREATININE 0.76 mg/dl (0.60-1.20); POTASSIUM 4.1 mmol/L (3.5-5.1)
[2017-02-28 14:18] LABS: ALB/GLOB RATIO 0.8 (0.9-2)
[2017-02-28 14:46] LABS: URINE APPEARANCE CLOUDY (CLEAR); URINE BILIRUBIN NEG (NEG); URINE COLOR YELLOW; URINE EPITHELIAL CELL AUTO >30 /lpf (0-5); URINE NITRITE NEG (NEG); URINE PH 8.5 (4.5-7.5); URINE SPECIFIC GRAVITY 1.022 (1.000-1.030); UROBILINOGEN NEG (NEG)
[2017-02-28 15:00] LABS: MANUAL MICROSCOPIC REQUIRED? NO; REVIEW REQ? NO; SULFASALICYLIC ACID NEG (NEG)
[2017-02-28] MEDS ORDERED: PROM25TA9 PO (15:50)
--- NOTE | 2017-02-28 15:58 | EMERGENCY ROOM VISIT NOTE ---
ED Visit Note First contact with patient: 13:01 Pt seen and examined at bedside. I reviewed the evaluation from the physician professional nursing assistant. Discussed all results with patient possible differential diagnosis, discussed close follow-up, symptoms to watch and return for, she verbalized understanding was agreeable with plan. Patient well-appearing here, tolerating by mouth, and ambulating with a steady gait at time of discharge.
[2017-02-28] MEDS ORDERED: ONDANSETRON HOME PACK 4MG OD TAB PO ONE (16:00)
[2017-02-28 16:23] VITALS: BP 140/88; PULSE 79; O2SAT 99
== END 2017-02-28 16:25 | disposition home or self-care (01) ==
LOC: C.EDB 12:31 → C.EDA 16:25
DX: R11.2 Nausea with vomiting, unspecified (principal); R19.7 Diarrhea, unspecified; J40 Bronchitis, not specified as acute or chronic; F60.3 Borderline personality disorder; M54.9 Dorsalgia, unspecified; G89.29 Other chronic pain; M54.2 Cervicalgia; E11.9 Type 2 diabetes mellitus without complications; Z82.49 Family history of ischemic heart disease and other diseases of the circulatory system; Z84.1 Family history of disorders of kidney and ureter; Z79.899 Other long term (current) drug therapy; Z87.442 Personal history of urinary calculi

== ENCOUNTER → 2017-03-10 | Outpatient (CLI) | payer OTHER ==
[~2017-03-10] MED LIST changes: +CLR10 PO; -HYDR4TAB78 PO; -IMTIN5; +LEVO1TAB33 PO; +METF750T PO; -METH10TA4 PO; +NCYSR50 PO; +PANT40TA PO; -PRED10TA PO; -PRLSR20 PO; -RTL20 PO; -SUMA100T16 PO
== END | disposition home or self-care (01) ==
LOC: C.LABSPEC 10:07
PROVIDERS: ATTEND Family Medicine
DX: J02.9 Acute pharyngitis, unspecified (principal)

== ENCOUNTER → 2017-07-01 | Outpatient (CLI) | payer OTHER | END | disposition home or self-care (01) | LOC: C.LABSPEC 14:32 | PROVIDERS: ATTEND Family Medicine | DX: N39.0 Urinary tract infection, site not specified (principal) ==

== ENCOUNTER → 2017-07-07 | Outpatient (CLI) | payer OTHER ==
--- NOTE | 2017-07-07 10:38 | DIAGNOSTIC IMAGING REPORT ---
(RENAL)RETROPERITON COMP HISTORY: Pain. Infection. PYELONEPHRITISPYELONEPHRITIS COMPARISON: None. FINDINGS: Right kidney: Maximum dimension 11.0 cm. No evidence for hydronephrosis. Normal corticomedullary differentiation and cortical thickness. Left kidney: Maximum dimension 10.9 cm. No evidence for hydronephrosis. 7 mm calcification upper pole considered nonobstructing. Normal corticomedullary differentiation and cortical thickness. Bladder: No bladder wall thickening. The bilateral ureteral jets were identified. IMPRESSION: 1. 7 mm nonobstructing calcification upper pole left kidney. 2. Otherwise normal renal ultrasound. The above report was generated using voice recognition software. It may contain grammatical, syntax or spelling errors. Electronically signed by: Kendall Zamarripa M.D. 07/07/2017 10:36 AM Dictated Date/Time: 07/07/2017 10:35 AM
== END | disposition home or self-care (01) ==
LOC: C.ULTR 10:01
PROVIDERS: ATTEND Family Medicine
DX: N12 Tubulo-interstitial nephritis, not specified as acute or chronic (principal)

== ENCOUNTER → 2017-07-23 | Outpatient (CLI) | payer OTHER ==
[~2017-07-23] MED LIST changes: +FLUC200T PO
[2017-07-23 17:55] LABS: BASO % 0.1 %; BASO ABS # 0.01 K/uL (0-0.2); HEMATOCRIT 38.3 % (37-47); HEMOGLOBIN 12.4 g/dL (12.0-16.0); IG# 0.02 K/uL (0.00-0.02); LYMPH % 20.3 %; LYMPH ABS # 2.04 K/uL (1.2-3.4); MEAN CELL VOLUME 80.8 fL (80-100); MEAN CORPUSCULAR HEMOGLOBIN 26.2 pg (25-34); MEAN CORPUSCULAR HGB CONC 32.4 g/dl (32-36); MEAN PLATELET VOLUME 9.5 fL (7.4-10.4); MONO % 4.8 %; MONO ABS # 0.48 K/uL (0.11-0.59); NEUT % 74.6 %; NEUT ABS # 7.52 K/uL (1.4-6.5); PLATELET COUNT 331 K/uL (130-400); RED CELL DISTRIBUTION WIDTH CV 14.9 % (11.5-14.5); RED CELL DISTRIBUTION WIDTH SD 44.3 fL (36.4-46.3); WHITE BLOOD COUNT 10.07 K/uL (4.8-10.8)
[2017-07-23 18:20] LABS: ALBUMIN 3.5 gm/dl (3.4-5.0); ALT/SGPT 23 U/L (12-78); AST/SGOT 11 U/L (15-37); BLOOD UREA NITROGEN 14 mg/dl (7-18); CALCIUM 9.5 mg/dl (8.5-10.1); CARBON DIOXIDE 25 mmol/L (21-32); CHOLESTEROL 180 mg/dl (0-200); CREATININE 0.81 mg/dl (0.60-1.20); GLUCOSE 138 mg/dl (70-99); POTASSIUM 3.8 mmol/L (3.5-5.1); SODIUM 134 mmol/L (136-145); URIC ACID 4.3 mg/dl (2.6-7.2)
[2017-07-23 18:30] LABS: ALKALINE PHOSPHATASE 89 U/L (45-117); LDL CHOLESTEROL CALCULATED 99 mg/dl; TOTAL PROTEIN 7.7 gm/dl (6.4-8.2); TRANSFERRIN 285 mg/dl (200-360)
[2017-07-24 06:50] LABS: HEMOGLOBIN A1C 7.5 % (4.5-5.6)
== END | disposition home or self-care (01) ==
LOC: C.LAB 17:28
PROVIDERS: ATTEND Family Medicine
DX: R73.09 Other abnormal glucose (principal); E55.9 Vitamin D deficiency, unspecified; D51.9 Vitamin B12 deficiency anemia, unspecified; E78.9 Disorder of lipoprotein metabolism, unspecified; R53.83 Other fatigue

== ENCOUNTER → 2017-07-23 | Outpatient (CLI) | payer OTHER | END | disposition home or self-care (01) | LOC: C.LABSPEC 14:37 | PROVIDERS: ATTEND Family Medicine | DX: N39.0 Urinary tract infection, site not specified (principal) ==

== ENCOUNTER 2017-07-25 15:03 | Emergency (ER) | payer OTHER ==
[~2017-07-25] VITALS: Ht 170.2 cm; Wt 134.8 kg
[~2017-07-25 15:03] MED LIST changes: -FLUC200T PO
[2017-07-25 15:12] VITALS: TEMP 36.7; Ht 170.2 cm; Wt 134.8 kg
[2017-07-25] MEDS ORDERED: SODIUM CHLORIDE 0.9% 1000ML 1,000 ML IV STA (15:55)
[2017-07-25] MEDS ORDERED: PROMETHAZINE HCL INJ 25 MG in SODIUM CHLORIDE 0.9% 50ML 50 ML IV STA (15:55)
--- NOTE | 2017-07-25 16:05 | EMERGENCY ROOM VISIT NOTE ---
History First contact with patient: 15:34 Chief Complaint: URINARY SYMPTOMS Stated Complaint: PAIN R SIDE, BURNING W/ URINATION, TROUBLE EATING Nursing Triage Summary: being treated for uti. "they changed the antibiotics now vomiting. they want me to have iv fluids and to r/o stone." I had ultrasound but it was inconclusive. History of Present Illness The patient is a 37 year old female who presents to the Emergency Room with complaints of 3-4 week long history of right flank pain. The patient states she was diagnosed with a urinary tract infection, and was given a Z-Patel and Diflucan for her symptoms. She states she did not seem to improve, so 3 days ago, she was started on Bactrim. She states she did have an ultrasound performed, which did show a stone in the upper pole of the right kidney, however states she was told it was "inconclusive". She states she was encouraged to come to the emergency department by her PCP to have a CT scan performed. She states she has had 3-4 day long history of nausea and vomiting. She is having difficulty keeping food down, but has been successful at keeping liquids down. She states she believes she is dehydrated due to the nausea and vomiting. She has been taking her Nucynta as well as OTC Tylenol and ibuprofen with some relief of her discomfort. She denies any aggravating or alleviating factors. She does have a history of kidney stones, and states this does feel similar. She complains of dysuria and gross hematuria. She does report urinary frequency and urgency. She states her symptoms have not improved despite multiple different antibiotics. When questioned about her sulfa allergy, she states she gets GI upset, and does not have a true allergy. 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 She denies any chance of injury, but does report history of herniated disc somewhere in her low back. Patient denies any chest pain or dyspnea. The pain she is experiencing does not radiate anywhere, and she denies any suprapubic or abdominal pain. She denies any fever or chills. She denies diarrhea. Review of Systems A complete 10 point review of systems was reviewed with the patient with pertinent positives and negatives as per history of present illness. All else were negative. Past Medical/Surgical History Medical Problems: (1) Borderline personality disorder (2) Calculus, ureter (3) Chronic back pain (4) chronic neck pain (5) Diabetes (6) Kidney stone Family History Hypertension Kidney disease Social History Smoking Status: Never Smoker Smokeless Tobacco Use: No Alcohol Use: none Drug Use: none Marital Status: single Housing Status: lives with family Occupation Status: employed Current/Historical Medications Scheduled Cholecalciferol (Vitamin D 1000 Unit), 1,000 INTER.UNIT PO DAILY Cyanocobalamin (Cyanocobalamin), 1,000 MCG INJ Q2W Cyclobenzaprine Hcl (Flexeril), 10 MG PO BID Doxazosin Mesylate (Cardura), 2 MG PO HS Fluconazole (Diflucan), 1 TAB PO DAILY Glimepiride (Glimepiride), 1 TAB PO BIDM Hydroxyzine Pamoate (Vistaril), 75 MG PO HS Levofloxacin (Levaquin), 500 MG PO DAILY Loratadine (Claritin), 10 MG PO DAILY Medroxyprogesterone Acetate (C (Medroxyprogesterone Aceta), 150 MG IM Q3MO Metformin Hcl (Glucophage Er), 750 MG PO DAILY Pantoprazole (Protonix), 40 MG PO DAILY Ranitidine (Zantac), 600 MG PO HS Sitagliptin Phosphate (Januvia), 100 MG PO DAILY Tapentadol HCl (Nucynta ER), 100 MG PO HS Tapentadol Hcl (Nucynta), 100 MG PO TID Topiramate (Topamax), 25 MG PO QPM Scheduled PRN Albuterol Sulfate (Proair Respiclick), 2 PUFFS INH Q4H PRN for Shortness of Breath Clonazepam (Klonopin), 0.5 MG PO DAILY PRN for Depression Hydroxyzine Pamoate (Vistaril), 25 MG PO BID PRN for Anxiety Lorazepam (Ativan), 0.5 MG PO DAILY PRN for seizure aura Promethazine Hcl (Phenergan), 25 MG PO Q6H PRN for Nausea Promethazine Hcl (Phenergan), 25 MG PO Q6H PRN for Nausea Tamsulosin Hcl (Flomax), 0.4 MG PO DAILY PRN for kidney stones Trazodone Hcl (Trazodone), 50 MG PO HS PRN for Sleep Zolpidem Tartrate (Ambien), 10 MG PO HS PRN for Sleep Miscellaneous Medications Sumatriptan Succinate (Imitrex Statdose) Physical Exam Vital Signs Date Time Temp Pulse Resp B/P (MAP) Pulse Ox O2 Delivery O2 Flow Rate FiO2 07/25/17 15:12 36.7 90 18 145/92 98 Room Air Physical Exam VITALS: Vitals are noted on the nurse's note and reviewed by myself. Vital signs stable. GENERAL: This is a 37-year-old obese white female, in no acute distress, nondiaphoretic, well-developed well-nourished. SKIN: The skin was without rashes, erythema, edema, or bruising. There is no tenting of the skin. Capillary reflex less than 2 seconds. HEAD: Normocephalic atraumatic. EARS: External auditory canals clear, tympanic membranes pearly swanson without erythema or effusion bilaterally. EYES: Pupils equal round and reactive to light and accommodation. Conjunctivae without injection, sclerae without icterus. Extraocular movements intact. NOSE: Patent, turbinates without inflammation or discharge. No sinus tenderness. MOUTH: Mucous membranes moist. Tonsils are not enlarged. Pharynx without erythema or exudate. Uvula midline. Airway patent. Tongue does not deviate. NECK: Supple without nuchal rigidity. No lymphadenopathy. No thyromegaly. Cervical spine is nontender. No JVD. HEART: Regular rate and rhythm without murmurs gallops or rubs. LUNGS: Clear to auscultation bilaterally without wheezes, rales or rhonchi. No dullness to percussion. No retractions or accessory muscle use. ABDOMEN: Positive bowel sounds x 4. Normal tympanic percussion. Soft, nontender, without masses or organomegaly. Jang sign negative. No guarding or rebound tenderness. Positive CVA tenderness on the right. MUSCULOSKELETAL: No muscle atrophy, erythema, or edema noted. Full range of motion without joint tenderness in all extremities. No tenderness to palpation. Normal gait. Strength 5/5 throughout. NEURO: Patient was alert and oriented to person place and time. Normal sensation to light and sharp touch. Deep tendon reflexes 2+ throughout. No focal neurological deficits. Medical Decision & Procedures ER Provider Diagnostic Interpretation: ABD/PELVIS WITHOUT FOR STONE CLINICAL HISTORY: 37 years-old Female presenting with right flank pain, hematuria, burning urination. TECHNIQUE: Multidetector CT of the abdomen and pelvis was performed without the use of intravenous contrast. IV contrast: None. A dose lowering technique was used consistent with the principles of ALARA (as low as reasonably achievable). COMPARISON: 06/27/2016. CT DOSE (mGy.cm): The estimated cumulative dose is 1315.91 mGycm. FINDINGS: Sterile Processing Technician topogram: Unremarkable. Lung bases: Minimal basilar opacities, likely atelectasis. Normal heart size. No pericardial or pleural effusion. Liver: Normal morphology. Normal density. Biliary: No gross biliary ductal dilatation allowing for noncontrast technique. Normal gallbladder. Pancreas: Normal noncontrast appearance. Spleen: Normal noncontrast appearance. Adrenal glands: Normal noncontrast appearance. Kidneys and ureters: Multiple bilateral nonobstructing punctate renal calculi bilaterally. Normal noncontrast appearance of the kidneys. No hydronephrosis. No perinephric fat infiltration. Ureters are nondilated. No periureteral fat stranding. No ureteral calculus. Bladder: Incompletely evaluated secondary to underdistention. No bladder calculi. Pelvic organs: Normal noncontrast appearance. Bowel: Mild stool burden in the colon. The appendix contains multiple appendicoliths but is otherwise normal. No bowel obstruction. Peritoneal cavity: No free fluid or intraperitoneal gas. Lymph nodes: No gross lymphadenopathy allowing for noncontrast technique. Vasculature: Normal noncontrast appearance. Abdominal wall: Mild body wall edema. Musculoskeletal: Degenerative changes of the spine. IMPRESSION: 1. Bilateral nonobstructing nephrolithiasis. No CT evidence of a recently passed calculus. No hydronephrosis. 2. No other evidence of acute intra-abdominal pathology. Electronically signed by: Brodie Campbell M.D. 07/25/2017 4:51 PM Dictated Date/Time: 07/25/2017 4:42 PM Laboratory Results 07/25/17 16:09 Red Blood Count 4.71, Mean Corpuscular Volume 80.7, Mean Corpuscular Hemoglobin 26.3, Mean Corpuscular Hemoglobin Concent 32.6, Mean Platelet Volume 9.3, Neutrophils (%) (Auto) 71.9, Lymphocytes (%) (Auto) 23.0, Monocytes (%) (Auto) 4.6, Eosinophils (%) (Auto) 0.0, Basophils (%) (Auto) 0.1, Neutrophils # (Auto) 6.81, Lymphocytes # (Auto) 2.18, Monocytes # (Auto) 0.44, Eosinophils # (Auto) 0.00, Basophils # (Auto) 0.01 07/25/17 16:09 Test 07/25/17 16:09 White Blood Count 9.48 K/uL (4.8-10.8) Red Blood Count 4.71 M/uL (4.2-5.4) Hemoglobin 12.4 g/dL (12.0-16.0) Hematocrit 38.0 % (37-47) Mean Corpuscular Volume 80.7 fL (80-100) Mean Corpuscular Hemoglobin 26.3 pg (25-34) Mean Corpuscular Hemoglobin Concent 32.6 g/dl (32-36) Platelet Count 335 K/uL (130-400) Mean Platelet Volume 9.3 fL (7.4-10.4) Neutrophils (%) (Auto) 71.9 % Lymphocytes (%) (Auto) 23.0 % Monocytes (%) (Auto) 4.6 % Eosinophils (%) (Auto) 0.0 % Basophils (%) (Auto) 0.1 % Neutrophils # (Auto) 6.81 K/uL (1.4-6.5) Lymphocytes # (Auto) 2.18 K/uL (1.2-3.4) Monocytes # (Auto) 0.44 K/uL (0.11-0.59) Eosinophils # (Auto) 0.00 K/uL (0-0.5) Basophils # (Auto) 0.01 K/uL (0-0.2) RDW Standard Deviation 43.9 fL (36.4-46.3) RDW Coefficient of Variation 14.8 % (11.5-14.5) Immature Granulocyte % (Auto) 0.4 % Immature Granulocyte # (Auto) 0.04 K/uL (0.00-0.02) Urine Color YELLOW Urine Appearance CLOUDY (CLEAR) Urine pH 5.0 (4.5-7.5) Urine Specific [place] 1.025 (1.000-1.030) Urine Protein NEG (NEG) Urine Glucose (UA) NEG (NEG) Urine Ketones NEG (NEG) Urine Occult Blood TRACE (NEG) Urine Nitrite NEG (NEG) Urine Bilirubin NEG (NEG) Urine Urobilinogen NEG (NEG) Urine Leukocyte Esterase MODERATE (NEG) Urine WBC (Auto) >30 /hpf (0-5) Urine RBC (Auto) 0-4 /hpf (0-4) Urine Hyaline Casts (Auto) 1-5 /lpf (0-5) Urine Epithelial Cells (Auto) >30 /lpf (0-5) Urine Bacteria (Auto) 1+ (NEG) Urine Test NEG (NEG) Anion Gap 2.0 mmol/L (3-11) Est Creatinine Clear Calc Drug Dose 157.2 ml/min Estimated GFR () 127.0 Estimated GFR (Non- 109.6 BUN/Creatinine Ratio 18.4 (10-20) Calcium Level 9.4 mg/dl (8.5-10.1) Medications Administered Medications (Trade) Dose Ordered Sig/Shruthi Route Start Time Stop Time Status Last Admin Dose Admin Sodium Chloride 1,000 ml @ 999 mls/hr Q1H1M STAT IV 07/25/17 15:55 07/25/17 16:55 DC 07/25/17 16:20 999 MLS/HR Promethazine HCl 25 mg/Sodium Chloride 51 ml @ 204 mls/hr NOW STAT IV 07/25/17 15:55 07/25/17 16:09 DC 07/25/17 16:20 204 MLS/HR ED Course The patient seen and evaluated as above. Previous medical records reviewed. IV access obtained, labs drawn. Patient was given 1 L normal saline solution and 25 mg promethazine for her nausea and feelings of dehydration. CT abdomen and pelvis without contrast was ordered. This was reviewed by myself and radiologist as above. The patient was reassessed and is feeling better. I discussed the findings of previous urine culture and current testing with the ED pharmacist and my attending. Recommendation was to treat for candidiasis. I discussed all findings with the patient at bedside. I discussed the management at this point with fluconazole. The patient was agreeable. All questions were answered to patient's satisfaction. Discharge instructions reviewed, patient was discharged home in good condition. Medical Decision This is a 37-year-old female patient presents to the emergency department today complaining of right flank pain 3-4 weeks. Patient also complains of dysuria, urinary frequency, and urinary hesitancy. The patient does have a history of frequent UTIs, and does often get candidiasis when on antibiotics. She has been treated so far with azithromycin and Bactrim with no improvement in her symptoms. She was treated with a 5 day course of fluconazole, however states she still feels that she has a yeast infection. The patient did have a outpatient renal ultrasound performed which did show a stone in the right kidney , but no ureteral stone. The patient's laboratory workup here in the emergency department was overall without abnormality. There is no leukocytosis or bandemia. There was no significant renal or electrolyte abnormality. Patient' s urinalysis did show positive leukoesterase and 1+ bacteria. There was hematuria noted. I suspect the patient's symptoms are related to a fungal UTI based on her workup here as well as culture results and symptoms. The patient will be treated with a two-week course of fluconazole with close follow-up by her PCP. I did discuss the likelihood that she may need to be referred to urology if no improvement in her symptoms. Etiologies such as renal colic, appendicitis, diverticulitis, mesenteric ischemia, aortic pathology, infections, inflammatory bowel disease, PUD, biliary pathology, UTI, candidiasis, gynecologic pathology, patient malignancy, as well as others were entertained. The chart was completed utilizing [employer] Speech voice recognition software. Grammatical errors, random word insertions, pronoun errors, and incomplete sentences are an occasional consequence of this system due to software limitations, ambient noise, and hardware issues. Any formal questions or concerns about the content, text, or information contained within the body of this dictation should be directly addressed to the provider for clarification. Medication Reconcilliation Current Medication List: was personally reviewed by me Blood Pressure Screening Patient's blood pressure: Elevated blood pressure Blood pressure disposition: Elevated BP felt to be situational Impression Primary Impression: Sapna UTI Departure Information Dispostion Home / Self-Care Condition GOOD Prescriptions Fluconazole (DIFLUCAN) 200 Mg Tab 1 TAB PO DAILY for 14 Days, #14 TAB Prov: Pat Torrez PA-C 07/25/17 Referrals Diogo Armstrong M.D. (PCP) Patient Instructions ED UTI Cystitis Female, ED Vaginal Infec Fungal Sapna, My [facility] Additional Instructions You have been treated in the Emergency Department for a Urinary Tract Infection (UTI). CT scan was negative for ureteral stone. Finish taking the antibiotic as prescribed by your PCP. You have been prescribed fluconazole 200 mg tablet. Take 1 tablet daily 14 days. This should treat a infection caused by a fungus/yeast. Monitor for abnormal heart rhythms or palpitations, as this medication in combination with some of your other medications does increase the risk of heart arrhythmias. Please follow closely with your PCP. Ibuprofen(Motrin, Advil) may be used for fever or pain. Use 600mg every six hours as needed. Take with food. Avoid using more than 2400mg in a 24 hour period. Do not use 2400mg per day for more than three consecutive days without physician direction. Prolonged inappropriate use can lead to stomach upset or ulcers. (AND/OR) Acetaminophen(Tylenol) may be used for fever or pain. Use 1000mg every six hours as needed. Avoid using more than 3000mg in a 24 hour period. Drink plenty of water and stay well hydrated. As with any trip to the Emergency Department, you should follow-up with your Primary Care Provider from today's visit. Return to the emergency department if your symptoms persist despite treatment plan outlined above or if the following symptoms occur: increased fevers, chills , low back pain, nausea/vomiting, or blood in your urine.
[2017-07-25 16:22] LABS: BASO % 0.1 %; BASO ABS # 0.01 K/uL (0-0.2); HEMOGLOBIN 12.4 g/dL (12.0-16.0); IG# 0.04 K/uL (0.00-0.02); LYMPH ABS # 2.18 K/uL (1.2-3.4); MEAN CELL VOLUME 80.7 fL (80-100); MEAN CORPUSCULAR HEMOGLOBIN 26.3 pg (25-34); MEAN CORPUSCULAR HGB CONC 32.6 g/dl (32-36); MEAN PLATELET VOLUME 9.3 fL (7.4-10.4); MONO % 4.6 %; MONO ABS # 0.44 K/uL (0.11-0.59); NEUT % 71.9 %; NEUT ABS # 6.81 K/uL (1.4-6.5); PLATELET COUNT 335 K/uL (130-400); RED CELL DISTRIBUTION WIDTH CV 14.8 % (11.5-14.5); RED CELL DISTRIBUTION WIDTH SD 43.9 fL (36.4-46.3); WHITE BLOOD COUNT 9.48 K/uL (4.8-10.8)
[2017-07-25 16:46] LABS: CALCIUM 9.4 mg/dl (8.5-10.1); CREATININE 0.71 mg/dl (0.60-1.20); POTASSIUM 3.9 mmol/L (3.5-5.1)
--- NOTE | 2017-07-25 16:52 | DIAGNOSTIC IMAGING REPORT ---
ABD/PELVIS WITHOUT FOR STONE CLINICAL HISTORY: 37 years-old Female presenting with right flank pain, hematuria, burning urination. TECHNIQUE: Multidetector CT of the abdomen and pelvis was performed without the use of intravenous contrast. IV contrast: None. A dose lowering technique was used consistent with the principles of ALARA (as low as reasonably achievable). COMPARISON: 06/27/2016. CT DOSE (mGy.cm): The estimated cumulative dose is 1315.91 mGycm. FINDINGS: Tie Mill Operator topogram: Unremarkable. Lung bases: Minimal basilar opacities, likely atelectasis. Normal heart size. No pericardial or pleural effusion. Liver: Normal morphology. Normal density. Biliary: No gross biliary ductal dilatation allowing for noncontrast technique. Normal gallbladder. Pancreas: Normal noncontrast appearance. Spleen: Normal noncontrast appearance. Adrenal glands: Normal noncontrast appearance. Kidneys and ureters: Multiple bilateral nonobstructing punctate renal calculi bilaterally. Normal noncontrast appearance of the kidneys. No hydronephrosis. No perinephric fat infiltration. Ureters are nondilated. No periureteral fat stranding. No ureteral calculus. Bladder: Incompletely evaluated secondary to underdistention. No bladder calculi. Pelvic organs: Normal noncontrast appearance. Bowel: Mild stool burden in the colon. The appendix contains multiple appendicoliths but is otherwise normal. No bowel obstruction. Peritoneal cavity: No free fluid or intraperitoneal gas. Lymph nodes: No gross lymphadenopathy allowing for noncontrast technique. Vasculature: Normal noncontrast appearance. Abdominal wall: Mild body wall edema. Musculoskeletal: Degenerative changes of the spine. IMPRESSION: 1. Bilateral nonobstructing nephrolithiasis. No CT evidence of a recently passed calculus. No hydronephrosis. 2. No other evidence of acute intra-abdominal pathology. Electronically signed by: Brodie Campbell M.D. 07/25/2017 4:51 PM Dictated Date/Time: 07/25/2017 4:42 PM
[2017-07-25] MEDS ORDERED: FLUC200T PO (17:26)
[2017-07-25 17:47] VITALS: BP 121/60; PULSE 76; O2SAT 98
== END 2017-07-25 17:48 | disposition home or self-care (01) ==
LOC: C.EDB 15:04 → C.EDC 17:48
DX: B37.41 Candidal cystitis and urethritis (principal); Z87.442 Personal history of urinary calculi; F60.3 Borderline personality disorder; M54.9 Dorsalgia, unspecified; G89.29 Other chronic pain; E66.9 Obesity, unspecified; E11.9 Type 2 diabetes mellitus without complications; Z79.899 Other long term (current) drug therapy; Z79.84 Long term (current) use of oral hypoglycemic drugs; Z82.49 Family history of ischemic heart disease and other diseases of the circulatory system; Z84.1 Family history of disorders of kidney and ureter

== ENCOUNTER 2017-08-13 11:33 | Emergency (ER) | payer OTHER ==
[~2017-08-13] VITALS: Ht 170.2 cm; Wt 132.8 kg
[~2017-08-13 11:33] MED LIST changes: -SUMA6KIT2; +SUMA6KIT2 SQ
[2017-08-13 11:39] VITALS: TEMP 36.7; Ht 170.2 cm; Wt 132.8 kg
--- NOTE | 2017-08-13 12:11 | EMERGENCY ROOM VISIT NOTE ---
History Report prepared by Haley: Juaquin Yee Under the Supervision of: Dr. Shane Ceron M.D. First contact with patient: 11:57 Chief Complaint: MENTAL HEALTH EVALUATION Stated Complaint: MENTAL HEALTH History of Present Illness The patient is a 37 year old female who presents to the Emergency Room with concerns over her worsening/declining mental status. The patient states that her mental status has been declining for the past 1.5 months. She describes her current symptoms as "extreme depression" and "worsening suicidality." The patient notes that she has tried to hurt herself in the past, but has not in the past 1.5 months. She notes that she has been making plans to kill herself including "overdosing on my insulin." She continues to add that "I haven't done the research yet, but I know I will have to mix the extra insulin with another drug." She again states that she has not attempted to overdose within the past 1.5 months. The patient was seen by her Therapist on Friday, and saw her primary care physician yesterday. Both of these physicians believe that the patient needs an inpatient psychiatric stay. She is agreeable to an inpatient stay currently. The patient did have an inpatient stay in April of 2016, over 1 year ago. The patient is a diabetic and on chronic pain medication for a previous back fracture. She denies any recent signs of illness such as cough, congestion, shortness of breath, or chest pain. Source of History: patient Onset: 1.5 months Position: head Quality: other (Psych, mental health evaluation) Timing: worsening (declining mental status) Associated Symptoms: No cough, No SOB Review of Systems See HPI for pertinent positives & negatives. A total of 10 systems reviewed and were otherwise negative. Past Medical & Surgical Medical Problems: (1) Borderline personality disorder (2) Calculus, ureter (3) Chronic back pain (4) chronic neck pain (5) Diabetes (6) Kidney stone Family History Hypertension Kidney disease Social History Smoking Status: Never Smoker Alcohol Use: none Drug Use: none Marital Status: single Housing Status: lives with family Occupation Status: employed Current/Historical Medications Scheduled Cariprazine HCl (Vraylar), 4.5 MG PO QAM Cholecalciferol (Vitamin D 1000 Unit), 10,000 INTER.UNIT PO QAM Cyclobenzaprine Hcl (Flexeril), 10 MG PO BID Doxazosin Mesylate (Cardura), 2 MG PO HS Exenatide (Bydureon), 2 MG SQ FRIDAY Glimepiride (Glimepiride), 1 TAB PO BIDM Hydroxyzine Pamoate (Vistaril), 50 MG PO QAM Hydroxyzine Pamoate (Vistaril), 75 MG PO HS Insulin Aspart (Novolog Flexpen), SQ QID Loratadine (Claritin), 10 MG PO DAILY Medroxyprogesterone Acetate (C (Medroxyprogesterone Aceta), 150 MG IM Q3MO Metformin Hcl (Glucophage Er), 750 MG PO BID Pantoprazole (Protonix), 40 MG PO QAM Ranitidine (Zantac), 300 MG PO HS Sumatriptan Succinate (Imitrex Statdose), 6 MG SQ UD Tapentadol HCl (Nucynta ER), 100 MG PO HS Tapentadol Hcl (Nucynta), 100 MG PO TID Topiramate (Topamax), 25 MG PO QPM Scheduled PRN Albuterol Sulfate (Proair Respiclick), 2 PUFFS INH Q4H PRN for Shortness of Breath Promethazine Hcl (Phenergan), 25 MG PO Q6H PRN for Nausea Trazodone Hcl (Trazodone), 50 MG PO HS PRN for Sleep Zolpidem Tartrate (Ambien), 10 MG PO HS PRN for Sleep Allergies Coded Allergies: Morphine (Verified Allergy, Severe, "HEART STOPS BEATING", 08/13/17) TOLERATES OXY IR, TRAMADOL Black Pepper (Verified Allergy, Mild, 08/13/17) Ketorolac (Verified Allergy, Mild, ITCHY, BUT CAN STILL TAKE IT, 08/13/17) Mushroom (Verified Allergy, Mild, 08/13/17) Sulfa Drugs (Verified Allergy, Mild, 08/13/17) Terfenadine (Verified Allergy, Mild, RASH, 08/13/17) Antihistamines, Chlorpheniramine-ty (Verified Allergy, Unknown, "ANTIHISTAMINE ALLERGY" - NO ALLERGY TO CLARITIN PER PT, 08/13/17) Antihistamines, Diphenhydramine-typ (Verified Allergy, Unknown, "ANTIHISTAMINE ALLERGY"- NO ALLERGY TO CLARITIN PER PT, 08/13/17) Aspartame (Unverified Allergy, Unknown, HIVES, 08/13/17) SOB ALSO Fexofenadine (Verified Allergy, Unknown, 08/13/17) Shellfish (Unverified Adverse Reaction, Severe, HIVES, 08/13/17) Physical Exam Vital Signs Date Time Temp Pulse Resp B/P (MAP) Pulse Ox O2 Delivery O2 Flow Rate FiO2 08/13/17 16:45 85 18 156/76 98 Room Air 08/13/17 14:11 91 18 147/90 98 Room Air 08/13/17 11:39 36.7 94 20 164/77 95 Room Air Physical Exam GENERAL: Patient is in no acute distress. HEENT: No acute trauma, normocephalic atraumatic, mucous membranes moist, no nasal congestion, no scleral icterus. NECK: No stridor, no adenopathy, no meningismus, trachea is midline. LUNGS: Clear to auscultation bilaterally, no wheeze, no rhonchi, breath sounds equal. HEART: There is a very subtle systolic murmur appreciated, regular rate and rhythm. ABDOMEN: Soft, nontender, bowel sounds positive, no hernias, no peritonitis. EXTREMITIES: No cyanosis or edema, full range of motion of all the joints without pain or difficulty, no signs for acute trauma. NEUROLOGIC: Oriented x 3, no acute motor or sensory deficits, no focal weakness. SKIN: No rash, no jaundice, no diaphoresis. PSYCH: Patient is cooperative and voluntary. She admits to depression and suicidal ideation with a plan to overdose on insulin. Medical Decision & Procedures Laboratory Results 08/13/17 12:50 08/13/17 12:50 Test 08/13/17 12:00 08/13/17 12:05 08/13/17 12:50 Urine Color YELLOW Urine Appearance CLOUDY (CLEAR) Urine pH 6.5 (4.5-7.5) Urine Specific [place] 1.025 (1.000-1.030) Urine Protein NEG (NEG) Urine Glucose (UA) NEG (NEG) Urine Ketones NEG (NEG) Urine Occult Blood NEG (NEG) Urine Nitrite NEG (NEG) Urine Bilirubin NEG (NEG) Urine Urobilinogen NEG (NEG) Urine Leukocyte Esterase NEG (NEG) Urine WBC (Auto) 1-5 /hpf (0-5) Urine RBC (Auto) 0-4 /hpf (0-4) Urine Hyaline Casts (Auto) 1-5 /lpf (0-5) Urine Epithelial Cells (Auto) >30 /lpf (0-5) Urine Bacteria (Auto) NEG (NEG) Urine Test NEG (NEG) Urine Opiates Screen NEG (NEG) Urine Methadone, Qualitative NEG (NEG) Urine Barbiturates NEG (NEG) Urine Phencyclidine (PCP) Level NEG (NEG) Ur Amphetamine/Methamphetamine NEG (NEG) MDMA (Ecstasy) Screen NEG (NEG) Urine Benzodiazepines Screen NEG (NEG) Urine Cocaine Metabolite NEG (NEG) Urine Marijuana (THC) NEG (NEG) Red Blood Count 4.74 M/uL (4.2-5.4) Mean Corpuscular Volume 80.4 fL (80-100) Mean Corpuscular Hemoglobin 26.6 pg (25-34) Mean Corpuscular Hemoglobin Concent 33.1 g/dl (32-36) RDW Standard Deviation 44.4 fL (36.4-46.3) RDW Coefficient of Variation 15.0 % (11.5-14.5) Mean Platelet Volume 9.6 fL (7.4-10.4) Anion Gap 5.0 mmol/L (3-11) Est Creatinine Clear Calc Drug Dose 149.5 ml/min Estimated GFR () 120.8 Estimated GFR (Non- 104.2 BUN/Creatinine Ratio 14.1 (10-20) Calcium Level 9.0 mg/dl (8.5-10.1) Total Bilirubin 0.3 mg/dl (0.2-1) Aspartate Amino Transf (AST/SGOT) 12 U/L (15-37) Alanine Aminotransferase (ALT/SGPT) 21 U/L (12-78) Alkaline Phosphatase 88 U/L (45-117) Total Protein 7.7 gm/dl (6.4-8.2) Albumin 3.7 gm/dl (3.4-5.0) Globulin 4.0 gm/dl (2.5-4.0) Albumin/Globulin Ratio 0.9 (0.9-2) Thyroid Stimulating Hormone (TSH) 1.980 uIu/ml (0.300-4.500) Salicylates Level < 1.7 mg/dl (2.8-20) Acetaminophen Level < 2 ug/ml (10-30) Ethyl Alcohol mg/dL < 3.0 mg/dl (0-3) Laboratory results reviewed by me. Medications Administered Medications (Trade) Dose Ordered Sig/Shruthi Route Start Time Stop Time Status Last Admin Dose Admin Acetaminophen (Tylenol Tab) 1,000 mg NOW STAT PO 08/13/17 15:05 08/13/17 15:07 DC 08/13/17 15:22 1,000 MG Metformin HCl (Glucophage Extended Rel Tab) 500 mg TODAY@1830 ONCE PO 08/13/17 18:30 08/13/17 18:31 DC 08/13/17 19:10 500 MG Glimepiride (Amaryl Tab) 2 mg TODAY@1830 ONCE PO 08/13/17 18:30 08/13/17 18:31 DC 08/13/17 19:09 2 MG Pantoprazole Sodium (Protonix Tab) 40 mg NOW ONCE PO 08/13/17 18:30 08/13/17 18:31 DC 08/13/17 19:10 40 MG ED Course 1202: The patient was evaluated in room A6. A complete history and physical exam was performed. 1502: The nursing staff called to inform me that the patient would like Tylenol for her headache. 1505: Ordered Tylenol 1000 mg PO. 1800: The Emergency Department Pharmacist is working on ordering the patient's appropriate daily medications. 2030: Bedsearch for inpatient placement ensues. The patient will be signed out to Dr. Weems at change of shift. Medical Decision Differential Diagnosis includes: Drug/alcohol abuse, suicidal ideation, thyroid condition, electrolyte or metabolic abnormality, situational depression. There is no leukocytosis or concerning anemia. No significant electrolyte abnormality, kidney failure or hepatitis. The patient appears to be in a euthyroid state. Urinalysis does not show any obvious infection. Urine tox is negative. Aspirin, Tylenol and alcohol levels were undetectable. testing is negative. The patient did ask for some oral Tylenol for a headache, this was given. She was also written to receive her normal medications. The patient was felt medically clear for a psychiatric evaluation. She is being seen by psychiatry case management. A bed search is underway. At this point, the case is being assumed by Dr. Weems, please see his notes. He has assumed care at the change of shift. The patient has been resting comfortably thus far in the ER. She has been cooperative. She is voluntary. Medication Reconcilliation Current Medication List: was personally reviewed by me Blood Pressure Screening Patient's blood pressure: Elevated blood pressure Referred to the primary doctor's office. Impression Primary Impression: Suicidal ideation Scribe Attestation The scribe's documentation has been prepared under my direction and personally reviewed by me in its entirety. I confirm that the note above accurately reflects all work, treatment, procedures, and medical decision making performed by me. Departure Information Dispostion Still a Patient (Dr. Weems) Referrals Diogo Armstrong M.D. (PCP) Patient Instructions My [facility]
[2017-08-13] MEDS ORDERED: VRAYLOR PO (12:27)
[2017-08-13] MEDS ORDERED: EXEN1INJ3 SQ (12:27)
[2017-08-13] MEDS ORDERED: NVLGI/PEN SQ (12:27)
[2017-08-13 13:30] LABS: HEMATOCRIT 38.1 % (37-47); HEMOGLOBIN 12.6 g/dL (12.0-16.0); MEAN CELL VOLUME 80.4 fL (80-100); MEAN CORPUSCULAR HEMOGLOBIN 26.6 pg (25-34); MEAN CORPUSCULAR HGB CONC 33.1 g/dl (32-36); MEAN PLATELET VOLUME 9.6 fL (7.4-10.4); PLATELET COUNT 382 K/uL (130-400); RED CELL DISTRIBUTION WIDTH SD 44.4 fL (36.4-46.3); WHITE BLOOD COUNT 9.63 K/uL (4.8-10.8)
[2017-08-13 13:40] LABS: ALBUMIN 3.7 gm/dl (3.4-5.0); CREATININE 0.74 mg/dl (0.60-1.20); POTASSIUM 3.7 mmol/L (3.5-5.1)
[2017-08-13 13:50] LABS: TOTAL PROTEIN 7.7 gm/dl (6.4-8.2)
[2017-08-13] MEDS ORDERED: ACETAMINOPHEN 500 MG TAB PO STA (15:05)
[2017-08-13] MEDS ORDERED: DEXTROSE 50% 50 ML SYR IV PRN (18:15)
[2017-08-13] MEDS ORDERED: GLUCAGON FOR INJ 1 MG VIAL IM PRN (18:15)
[2017-08-13] MEDS ORDERED: GLUCOSE 10 TABS/TUBE PO PRN (18:15)
[2017-08-13] MEDS ORDERED: CARBOHYDRATES FOR HYPOGLYCEMIA PO PRN (18:15)
[2017-08-13] MEDS ORDERED: GLUCOSE 40% GEL 15 GM TUBE PO PRN (18:15)
[2017-08-13] MEDS ORDERED: CARI1CAP PO (18:28)
[2017-08-13] MEDS ORDERED: PANTOprazole SOD 40 MG TAB PO ONE (18:30)
[2017-08-13] MEDS: INSULIN ASPART 100 UNITS/ML 3 ML PEN SC SCH ×2 (18:30→21:00)
[2017-08-13] MEDS ORDERED: GLIMEPIRIDE 2 MG TAB PO ONE (18:30)
[2017-08-13] MEDS ORDERED: METFORMIN HCL 500 MG TABCR PO ONE (18:30)
[2017-08-13] MEDS ORDERED: TRAZODONE HCL 50 MG TAB PO PRN (19:00)
[2017-08-13] MEDS ORDERED: ALBUTEROL HFA 8 GM INHALER INH PRN (19:00)
[2017-08-13] MEDS ORDERED: ZOLPIDEM TARTRATE 10 MG TAB PO PRN (19:00)
[2017-08-13] MEDS ORDERED: PROMETHAZINE HCL 25 MG TAB PO PRN (19:00)
[2017-08-13] MEDS ORDERED: TAPENTADOL ER 50 MG TABCR PO SCH (21:00)
[2017-08-13] MEDS ORDERED: hydrOXYzine HCL 25 MG TAB PO SCH (21:00)
[2017-08-13] MEDS ORDERED: RANITIDINE HCL 150 MG TAB PO SCH (21:00)
[2017-08-13] MEDS ORDERED: DOXAZosin MESYLATE TAB 2 MG TAB PO SCH (21:00)
[2017-08-13] MEDS ORDERED: CYCLOBENZAPRINE HCL 10 MG TAB PO SCH (21:00)
[2017-08-13] MEDS ORDERED: TOPIRAMATE 25 MG TAB PO SCH (21:00)
[2017-08-14 00:25] VITALS: BP 133/88; PULSE 82; O2SAT 97
--- NOTE | 2017-08-14 02:11 | EMERGENCY ROOM VISIT NOTE ---
ED Visit Note This patient was signed out to me at shift change by Dr. Ceron. The patient had been medically cleared and was evaluated by psychiatry and was pending placement at that time. she was accepted and transferred for inpatient treatment to [facility]. When I checked on her, she is resting comfortably and she just eaten a meal and we had checked her blood sugar as well. She was transferred for further inpatient treatment and evaluation.
[2017-08-14] MEDS ORDERED: GLIMEPIRIDE 2 MG TAB PO SCH (08:00)
[2017-08-14] MEDS ORDERED: PANTOprazole SOD 40 MG TAB PO SCH (09:00)
[2017-08-14] MEDS ORDERED: LORATADINE 10 MG TAB PO SCH (09:00)
[2017-08-14] MEDS ORDERED: CHOLECALCIFEROL 1000 INTER.UNIT TAB PO SCH (09:00)
[2017-08-14] MEDS ORDERED: METFORMIN HCL 500 MG TABCR PO SCH ×2 (09:00→16:00)
[2017-08-14] MEDS ORDERED: hydrOXYzine HCL 25 MG TAB PO SCH (09:00)
[2017-08-14] MEDS ORDERED: TAPENTADOL HCL 50 MG TAB PO SCH (09:00)
== END 2017-08-14 00:28 ==
LOC: C.EDB 11:35 → C.EDA 08-14 00:28
DX: R45.851 Suicidal ideations (principal); R03.0 Elevated blood-pressure reading, without diagnosis of hypertension; F60.3 Borderline personality disorder; E11.9 Type 2 diabetes mellitus without complications; M54.9 Dorsalgia, unspecified; G89.29 Other chronic pain; Z87.828 Personal history of other (healed) physical injury and trauma; Z79.899 Other long term (current) drug therapy; Z79.84 Long term (current) use of oral hypoglycemic drugs; Z79.4 Long term (current) use of insulin; Z79.3 Long term (current) use of hormonal contraceptives; Z88.6 Allergy status to analgesic agent; Z91.018 Allergy to other foods; Z88.8 Allergy status to other drugs, medicaments and biological substances; Z88.2 Allergy status to sulfonamides; Z91.013 Allergy to seafood

== ENCOUNTER → 2017-12-01 | Outpatient (CLI) | payer OTHER ==
[~2017-12-01] MED LIST changes: +CARI1CAP PO; -CLON0.5T3 PO; -CYNI1000 INJ; +EXEN1INJ3 SQ; -LEVO1TAB33 PO; -LORA-741 PO; +NVLGI/PEN SQ; -SITA100T3 PO; -TAMS0.4C38 PO
[2017-12-01 14:54] LABS: BASO % 0.1 %; BASO ABS # 0.01 K/uL (0-0.2); HEMATOCRIT 38.2 % (37-47); HEMOGLOBIN 11.8 g/dL (12.0-16.0); IG# 0.01 K/uL (0.00-0.02); LYMPH ABS # 1.94 K/uL (1.2-3.4); MEAN CELL VOLUME 79.6 fL (80-100); MEAN CORPUSCULAR HEMOGLOBIN 24.6 pg (25-34); MEAN CORPUSCULAR HGB CONC 30.9 g/dl (32-36); MEAN PLATELET VOLUME 9.9 fL (7.4-10.4); MONO % 5.8 %; MONO ABS # 0.45 K/uL (0.11-0.59); NEUT ABS # 5.34 K/uL (1.4-6.5); PLATELET COUNT 338 K/uL (130-400); RED CELL DISTRIBUTION WIDTH CV 16.2 % (11.5-14.5); RED CELL DISTRIBUTION WIDTH SD 47.2 fL (36.4-46.3); WHITE BLOOD COUNT 7.75 K/uL (4.8-10.8)
== END | disposition home or self-care (01) ==
LOC: C.LAB 13:04
PROVIDERS: ATTEND Psychiatry & Neurology Psychiatry
DX: Z79.899 Other long term (current) drug therapy (principal)

== ENCOUNTER 2018-07-01 18:47 | Inpatient (IN) ==
[2018-07-01] MEDS ORDERED: SODIUM CHLORIDE 0.9% 500 ML IV ONE (19:49)
[2018-07-01] MEDS ORDERED: ONDANSETRON INJ 2 MG/ML 2 ML VIAL IV STA ×2 (19:49→21:31)
[2018-07-01 19:57] LABS: Basophils # (auto) 0.02 K/uL (0-0.2); Basophils % (auto) 0.1 %; Hematocrit (blood only) 36.9 % (37-47); Immature Granulocytes # (auto) 0.06 K/uL (0.00-0.02); Immature Granulocytes % (auto) 0.3 %; Lymphocytes # (auto) 1.82 K/uL (1.2-3.4); Lymphocytes % (auto) 9.8 %; Mean Corpuscular Hgb Conc 32.5 g/dL (32-36); Mean Corpuscular Volume 82.2 fL (80-100); Mean Platelet Volume 9.8 fL (7.4-10.4); Monocytes # (auto) 1.22 K/uL (0.11-0.59); Monocytes % (auto) 6.6 %; Neutrophils % (auto) 83.2 %; Platelet Count 332 K/uL (130-400); RDW Coefficient of Variation 14.8 % (11.5-14.5); RDW Standard Deviation 43.8 fL (36.4-46.3); Red Blood Count 4.49 M/uL (4.2-5.4); White Blood Count 18.52 K/uL (4.8-10.8)
[2018-07-01] MEDS: HYDROmorphone INJ 0.5 MG/0.5 ML SYR IV PRN ×3 (20:05→22:34)
[2018-07-01 20:08] LABS: INR 2.3 (0.9-1.1); Prothrombin Time 22.5 Seconds (9.0-12.0)
[2018-07-01 20:29] LABS: BUN Creatinine Ratio 16.9 (10-20); Calcium 8.9 mg/dl (8.5-10.1); Creatinine Clr Calc Pharmacy 145.3 ml/min; Est GFR (African American) 114.3; Est GFR (Non-African American) 98.6; Potassium 3.8 mmol/L (3.5-5.1)
[2018-07-01] MEDS ORDERED: TAMSULOSIN HCL 0.4 MG CAP PO ONE (20:36)
--- NOTE | 2018-07-01 20:38 | XRay Report ---
XR KUB CLINICAL HISTORY: known stone, worse pain flank pain COMPARISON STUDY: 06/30/2018 FINDINGS: Previously described proximal left ureteral calculus appears to have passed to the lower po le left kidney in retrograde fashion. Minimal bilateral nephrocalcinosis is again noted. Bowel patter n is nonobstructive. IMPRESSION: The proximal left ureteral calculus previously described has moved in a retrograde fashi on to the lower pole of the left kidney. The above report was generated using voice recognition software. It may contain grammatical, syntax or spelling errors. Electronically signed by: Kendall Zamarripa M.D. 07/01/2018 8:36 PM
[2018-07-01 20:55] LABS: Appearance Urine Turbid (Clear); Blood Urine 3+ (Negative); Color Urine Amber; Glucose Urine UA Negative (Negative); Ketones Urine Negative (Negative); Leukocyte Esterase Urine Negative (Negative); Nitrite Urine Negative (Negative); Protein Urine 2+ (Negative); Specific Gravity Urine >= 1.030 (1.000-1.030); Urobilinogen Urine Negative (Negative)
[2018-07-01 20:58] LABS: Bilirubin Urine Negative (Negative); Ictotest Urine Negative (Negative)
[2018-07-01 20:59] LABS: Bacteria Urine 1+ (Negative); Epithelial Cell Urine >30 /lpf (0-5); RBC Urine >30 /hpf (0-4); WBC Urine >30 /hpf (0-5)
--- NOTE | 2018-07-01 22:28 | CT Scan Report ---
CT abd pelvis wo con CT DOSE: 1780.45 mGy.cm HISTORY: Nephrocalcinosis kidney stones TECHNIQUE: Multiaxial CT images of the abdomen and pelvis were performed without contrast. A dose lo wering technique was utilized adhering to the principles of ALARA. COMPARISON STUDY: 12/29/2017 FINDINGS: Lung bases are clear. Liver spleen and pancreas are unremarkable. Bilateral nephrocalcinosi s is noted. Mild left hydroureteronephrosis. 3 mm obstructing calculus distal left ureter at the leve l of the sacroiliac joints. Bladder is midline. There are no bladder calcifications. Nonobstructive b owel pattern. IMPRESSION: 1. 3 mm obstructing calculus distal left ureter at the mid left sacral iliac joint level. 2. Multiple bilateral nonobstructing nephrocalcinosis. The above report was generated using voice recognition software. It may contain grammatical, syntax or spelling errors. Electronically signed by: Kendall Zamarripa M.D. 07/01/2018 10:26 PM
[2018-07-01] MEDS ORDERED: PROCHLORPERAZINE 5 MG/ML 2 ML VIAL ONE (22:32)
[2018-07-01] MEDS: PROCHLORPERAZINE 10 MG in SYRINGE 8 ML IV PRN (22:34)
--- NOTE | 2018-07-01 23:23 | History & Physical Report ---
Date of Service July 01, 2018 Assessment & Plan (1) Left ureteral calculus: 3 mm obstructing distal left ureteral calculus-- At the mid left sacroiliac joint-- Admit to medical floor bed. Continue with IV fluids. Zosyn 4.5 g IV every 8 hours. Dilaudid 0.5 mg IV every 3 hours as needed. Zofran 4 mg IV every 6 hours as needed. Consult her urologist Dr. Acuña Present on Admission?: Yes (2) Diabetes: Patient will be n.p.o. Hold metformin, and glimepiride. Placed on Accu-Cheks before meals and at bedtime/every 6 hours with Humalog coverage per scale. Present on Admission?: Yes (3) Polysubstance overdose: Patient is on multiple medications: Nucynta and Nucynta ER, along with trazodone and topiramate. We will hold these medications for now, as patient has as too much nausea. Dilaudid as noted above for pain. Present on Admission?: Yes (4) Pulmonary embolism: Patient is presently on warfarin, begun on June 15. INR is therapeutic at 2.3. Dr. Acuña was contacted by the ED, and she felt that the patient would not need to stop her warfarin or have it reversed, since the CT was suggesting the stone is moving, and she may be able to pass the stone on her own. Present on Admission?: Yes History of Present Illness Chief Complaint: The patient presents to the emergency department with complaint of severe left-sided flank pain with nausea and vomiting that began at 1400 hrs., similar to previous kidney stone attacks. Primary Care Provider: Diogo Armstrong The patient is a 38-year-old female with a past medical history including several kidney stones, with the first being at age 19, who presents to the emergency department with her usual symptoms of severe left-sided abdomen radiating to flank pain, accompanied by nausea and vomiting. She was seen in emergency department yesterday, was noted to have a 4 mm left ureteral stone, and was discharged on Phenergan and oxycodone as needed. She reports that she has had vomiting every time she tries to take the pain medications. She follows with Dr. Acuña from urology, and reports that she is only been able to ever pass 1 of the 8 stones in her past on her own. She has been taking Coumadin since June 15, for pulmonary emboli. Allergies Allergy/AdvReac Type Severity Reaction Status Date / Time morphine Allergy Severe "HEART Verified 07/01/18 20:36 STOPS BEATING" black pepper Allergy Mild Swelling Verified 07/01/18 20:36 of Lip/Tongue/Throat ketorolac Allergy Mild ITCHY, BUT Verified 07/01/18 20:36 CAN STILL TAKE IT mushroom Allergy Mild Unknown Verified 07/01/18 20:36 Sulfa (Sulfonamide Allergy Mild Rash Verified 07/01/18 20:36 Antibiotics) terfenadine Allergy Mild RASH Verified 07/01/18 20:36 aspartame Allergy Unknown HIVES Unverified 07/01/18 20:36 chlorpheniramine Allergy Unknown "ANTIHISTAMINE Verified 07/01/18 20:36 ALLERGY" - NO ALLERGY TO CLARITIN PER PT diphenhydramine Allergy Unknown "ANTIHISTAMINE Verified 07/01/18 20:36 ALLERGY"- NO ALLERGY TO CLARITIN PER PT fexofenadine Allergy Unknown Unknown Verified 07/01/18 20:36 shellfish derived AdvReac Severe HIVES Unverified 06/30/18 16:50 Home Medications Home Medications Medication Instructions Recorded Confirmed Type cyclobenzaprine 10 mg PO BID 12/29/17 07/01/18 History doxazosin 2 mg PO HS 12/29/17 07/01/18 History exenatide microspheres 2 mg SUBCUT WK 12/29/17 07/01/18 History glimepiride 4 mg PO BID 12/29/17 07/01/18 History metformin 750 mg PO BID 12/29/17 07/01/18 History pantoprazole 40 mg PO QAM 12/29/17 07/01/18 History ranitidine HCl [Zantac] 600 mg PO HS 12/29/17 07/01/18 History tapentadol [Nucynta ER] 100 mg PO HS 12/29/17 07/01/18 History tapentadol [Nucynta] 100 mg PO TID 12/29/17 07/01/18 History topiramate 25 mg PO HS 12/29/17 07/01/18 History trazodone 50 mg PO HS 12/29/17 07/01/18 History zolpidem [Ambien] 10 mg PO HS 12/29/17 07/01/18 History cholecalciferol (vitamin D3) 4,000 units PO HS 02/09/18 07/01/18 History [Vitamin D3] fluticasone propionate [Flonase 1 spray INTRANASAL DAILY PRN 02/09/18 07/01/18 History Allergy Relief] hydroxyzine pamoate [Vistaril] 25 mg PO DAILY PRN 02/09/18 07/01/18 History hydroxyzine pamoate [Vistaril] 25 mg PO HS 02/09/18 07/01/18 History insulin aspart U-100 [Novolog 1 dose SUBCUT AC PRN 02/09/18 07/01/18 History Flexpen U-100 Insulin] sumatriptan [Imitrex] 20 mg INTRANASAL DAILY PRN 02/09/18 07/01/18 History thiamine HCl (vitamin B1) [Vitamin 50 mg PO HS 02/09/18 07/01/18 History B-1] valacyclovir [Valtrex] 1 g PO BID PRN 02/09/18 07/01/18 History fluconazole 150 mg PO HS 06/15/18 07/01/18 History oxycodone 5 mg PO Q6H PRN #14 tab 06/30/18 07/01/18 Rx warfarin 2.5 - 5 mg PO UD 06/30/18 07/01/18 History tamsulosin [Flomax] 0.4 mg PO DAILY 07/01/18 07/01/18 History Past Med/Surg History Medical History Diabetes (Chronic) Polysubstance overdose (Resolved) Pyelonephritis (Resolved) Calculus, ureter (Resolved 02/12/14) Hydronephrosis (Acute) Mood disorder (Chronic) Renal colic (Chronic) Right ureteral stone (Resolved) Urinary tract infection (Resolved) Pulmonary emboli History of wisdom tooth extraction Surgical History History of appendectomy History of cystoscopy History of uvulopalatopharyngoplasty Family History Other No pertinent family history Social History Preferred Language: Colombian Communication Ability: Effective Manager Wind Required: No Beliefs That Will Affect Care: None Current Living Situation: Other Current Living Situation Comment: Roommate Other Information That Helps Us Care for You: No Feels Safe at Home: Yes Safety Concerns: Feels Safe At This Time Smoking Status: Never smoker Hx Alcohol Use: No Hx Substance Use: No Review of Systems The patient denies chest pain, palpitations, shortness of breath, dyspnea on exertion, cough, lower extremity swelling, sore throat, fevers, chills, sweats, diarrhea , constipation, blood in stool, dysuria, lightheadedness, dizziness, headache, memory loss, loss of consciousness, rash, imbalance, focal or generalized weakness, numbness or tingling in arms or legs, generalized arthralgias or myalgias, back or neck pain, or night sweats. The review of systems is otherwise negative other than for that already noted above, and at least 10 systems have been reviewed. Physical Exam Vital Signs (Past 24 Hours): Last Vital Signs Temp 36.7 C 07/01/18 18:51 Pulse 63 07/01/18 22:39 Resp 18 07/01/18 22:39 BP 123/80 07/01/18 22:39 Pulse Ox 95 07/01/18 22:39 Physical Exam: The patient is awake, alert and oriented 3, well developed and well nourished, normocephalic and atraumatic, lying in bed and in no acute distress. HEENT--PERRL, EOMI, mucous membranes and oropharynx dry. Neck--supple. No JVD. No bruits. Thyroid normal, trachea midline, no adenopathy. Heart--normal S1 and S2. No murmurs, rubs or gallops. Lungs--clear bilaterally, no respiratory distress, no accessory muscle use. Abdomen--normal bowel sounds and soft. Nontender. Nondistended. Obese. Extremities--no cyanosis or clubbing. No edema. There are good distal pulses b/l. Dermatologic--normal skin turgor, normal color, no abnormal lymph nodes, no rash. Neurologic--cranial nerves II through XII grossly intact. Rheumatologic--normal range of motion. Psychiatric--normal affect. Results & Data Laboratory Results Laboratory Results WBC 18.52 K/uL (4.8-10.8) H 07/01/18 19:30 RBC 4.49 M/uL (4.2-5.4) 07/01/18 19:30 Hgb 12.0 g/dL (12.0-16.0) 07/01/18: Hct 36.9 % (37-47) L 07/01/18 19: MCV 82.2 fL (80-100) 07/01/18: MCH 26.7 pg (25-34) 07/01/18: MCHC 32.5 g/dL (32-36) 07/01/18: RDW Std Deviation 43.8 fL (36.4-46.3) 07/01/18: RDW Coeff of Annalee 14.8 % (11.5-14.5) H 07/01/18: Plt Count 332 K/uL (130-400) 07/01/18: MPV 9.8 fL (7.4-10.4) 07/01/18: Immature Gran % (Auto) 0.3 % 07/01/18: Neut % (Auto) 83.2 % 07/01/18: Lymph % (Auto) 9.8 % 07/01/18:30 [place] % (Auto) 6.6 % 07/01/18:30 Eos % (Auto) 0.0 % 07/01/18: Baso % (Auto) 0.1 % 07/01/18:30 Immature Gran # (Auto) 0.06 K/uL (0.00-0.02) H 07/01/18:30 Neut # (Auto) 15.40 K/uL (1.4-6.5) H 07/01/18 19:30 Lymph # (Auto) 1.82 K/uL (1.2-3.4) 07/01/18:30 [place] # (Auto) 1.22 K/uL (0.11-0.59) H 07/01/18:30 Eos # (Auto) 0.00 K/uL (0-0.5) 07/01/18 19:30 Baso # (Auto) 0.02 K/uL (0-0.2) 07/01/18 19:30 PT 22.5 Seconds (9.0-12.0) H 07/01/18 19:30 INR 2.3 (0.9-1.1) H 07/01/18 19:30 Sodium 138 mmol/L (136-145) 07/01/18 19:30 Potassium 3.8 mmol/L (3.5-5.1) 07/01/18 19:30 Chloride 106 mmol/L (98-107) 07/01/18 19:30 Carbon Dioxide 26 mmol/L (21-32) 07/01/18 19:30 Anion Gap 7.0 (3-11) 07/01/18 19:30 BUN 13 mg/dl (7-18) 07/01/18 19:30 Creatinine 0.77 mg/dl (0.6-1.2) 07/01/18: Est Cr Clr Drug Dosing 145.3 ml/min 07/01/18 19:30 Est GFR ( Amer) 114.3 07/01/18 19:30 Est GFR (Non-Af Amer) 98.6 07/01/18 19:30 BUN/Creatinine Ratio 16.9 (10-20) 07/01/18 19:30 Glucose 142 mg/dl (70-99) H 07/01/18 19:30 POC Glucose 131 (70-99) H 07/02/18 01:04 Calcium 8.9 mg/dl (8.5-10.1) 07/01/18 19:30 Specimen Hemolysis 07/01/18 19:30 Urine Color Jade 07/01/18 19:30 Urine Appearance Turbid (Clear) H 07/01/18 19:30 Urine pH 6.0 (4.5-7.5) 07/01/18 19:30 Ur Specific Mcd[place]al >= 1.030 (1.000-1.030) 07/01/18 19:30 Urine Protein 2+ (Negative) H 07/01/18 19:30 Urine Glucose (UA) Negative (Negative) 07/01/18: Urine Ketones Negative (Negative) 07/01/18 19:30 Urine Blood 3+ (Negative) H 07/01/18 19:30 Urine Nitrite Negative (Negative) 07/01/18:30 Urine Bilirubin Negative (Negative) 07/01/18: Urine Urobilinogen Negative (Negative) 07/01/18 19:30 Ur Leukocyte Esterase Negative (Negative) 07/01/18 19:30 Urine RBC >30 /hpf (0-4) H 07/01/18 19:30 Urine WBC >30 /hpf (0-5) H 07/01/18 19:30 Ur Epithelial Cells >30 /lpf (0-5) H 07/01/18 19:30 Urine Bacteria 1+ (Negative) H 07/01/18 19:30 Diagnostic Findings [place], [place] [phone] XRay Report Patient: AUGUST GR Date: 07/01/18 MR#: [id number]: [address] Acct ID:[id number]: Date: 1980[facility] Zip: [place] [address] Age: 38Location: ED Sex: F Room/Bed: Att Phy: Diagnosis: VOMITING,KIDNEY STONE Rose Phy: Diogo Armstrong M.D.Service Date: 07/01/18 Fam Phy: Interpreting Phy: Kendall Zamarripa MD Admit Phy: Ordering Phy: Marilyn Hare DO cc: ~ XR KUB CLINICAL HISTORY: known stone, worse pain flank pain COMPARISON STUDY: 06/30/2018 FINDINGS: Previously described proximal left ureteral calculus appears to have passed to the lower pole left kidney in retrograde fashion. Minimal bilateral nephrocalcinosis is again noted. Bowel pattern is nonobstructive. IMPRESSION: The proximal left ureteral calculus previously described has moved in a retrograde fashion to the lower pole of the left kidney. The above report was generated using voice recognition software. It may contain grammatical, syntax or spelling errors. Electronically signed by: Kendall Zamarripa M.D. 07/01/2018 8:36 PM Dictated: 07/01/182034 Transcribed: 07/01/182034 [place], [place] [phone] CT Scan Report Patient: AUGUST GR Date: 07/01/18 MR#: [id number]: [address] Acct ID:[id number]: Date: 1980[facility] Zip: [place] [address] Age: 38Location: ED Sex: F Room/Bed: Att Phy: Diagnosis: VOMITING,KIDNEY STONE [place] Phy: Diogo Armstrong M.D.Service Date: 07/01/18 [facility] Phy: Interpreting Phy: Kendall Zamarripa MD Admit Phy: Ordering Phy: Marco A Baez M.D. cc: ~ CT abd pelvis wo con CT DOSE: 1780.45 mGy.cm HISTORY: Nephrocalcinosis kidney stones TECHNIQUE: Multiaxial CT images of the abdomen and pelvis were performed without contrast. A dose lowering technique was utilized adhering to the principles of ALARA. COMPARISON STUDY: 12/29/2017 FINDINGS: Lung bases are clear. Liver spleen and pancreas are unremarkable. Bilateral nephrocalcinosis is noted. Mild left hydroureteronephrosis. 3 mm obstructing calculus distal left ureter at the level of the sacroiliac joints. Bladder is midline. There are no bladder calcifications. Nonobstructive bowel pattern. IMPRESSION: 1. 3 mm obstructing calculus distal left ureter at the mid left sacral iliac joint level. 2. Multiple bilateral nonobstructing nephrocalcinosis. The above report was generated using voice recognition software. It may contain grammatical, syntax or spelling errors. Electronically signed by: Kendall Zamarripa M.D. 07/01/2018 10:26 PM Dictated: 07/01/182223 Transcribed: 07/01/182223 Code Status & VTE Plan Code Status Full code VTE Prophylaxis Plan VTE Prophylaxis will be ordered: Yes
--- NOTE | 2018-07-01 23:33 | Emergency Department Note ---
Entered by Juaquin Yee acting as a scribe for History of Present Illness General Chief complaint: Kidney Stone Stated complaint: VOMITING,KIDNEY STONE Time Seen by Provider: 07/01/18 19:23 Source: patient Limitations: no limitations History of Present Illness Provider complaint: Kidney stone Onset (ago): hour(s) (5.5) Location: back (left flank) Severity: severe Pain Consistency: + constant Maximum Pain Intensity: 8 Quality: + other (Left lower abdomen) Associated symptoms: + nausea/vomiting Treatments prior to arrival: other (Phenergan Oxycodone) The patient is a 38 year old female who presents to the Emergency Room with complaints of severe and constant left sided flank pain that began this afternoon at 1400, 5.5 hours ago. The patient states that she has a history of at least 8 previous kidney stones, and adds that her current pain feels very similar to what she has experienced in the past. Her current pain starts in the left lower abdominal quadrant and radiates into the left flank. She also complains of hematuria. The patient was seen here in the ED yesterday and was diagnosed with a 4mm stone on the left. She was discharged home with Phenergan and Oxy. The patient notes that she has vomited every time she tries to take the Oxy. Zofran works better for her than Phenergan, but her insurance will not cover Zofran. The patient has only passed 1 of her 8 stones in the past and has required Lithotripsy by Dr. Acuña for the rest. The patient notes that she takes Coumadin daily secondary to a history of pulmonary emboli that were diagnosed 1 month ago. No other exacerbating or remitting factors. Home Medications Home Medications Medication Instructions Recorded Confirmed Type cyclobenzaprine 10 mg PO BID 12/29/17 07/01/18 History doxazosin 2 mg PO HS 12/29/17 07/01/18 History exenatide microspheres 2 mg SUBCUT WK 12/29/17 07/01/18 History glimepiride 4 mg PO BID 12/29/17 07/01/18 History metformin 750 mg PO BID 12/29/17 07/01/18 History pantoprazole 40 mg PO QAM 12/29/17 07/01/18 History ranitidine HCl [Zantac] 600 mg PO HS 12/29/17 07/01/18 History tapentadol [Nucynta ER] 100 mg PO HS 12/29/17 07/01/18 History tapentadol [Nucynta] 100 mg PO TID 12/29/17 07/01/18 History topiramate 25 mg PO HS 12/29/17 07/01/18 History trazodone 50 mg PO HS 12/29/17 07/01/18 History zolpidem [Ambien] 10 mg PO HS 12/29/17 07/01/18 History cholecalciferol (vitamin D3) 4,000 units PO HS 02/09/18 07/01/18 History [Vitamin D3] fluticasone propionate [Flonase 1 spray INTRANASAL DAILY PRN 02/09/18 07/01/18 History Allergy Relief] hydroxyzine pamoate [Vistaril] 25 mg PO DAILY PRN 02/09/18 07/01/18 History hydroxyzine pamoate [Vistaril] 25 mg PO HS 02/09/18 07/01/18 History insulin aspart U-100 [Novolog 1 dose SUBCUT AC PRN 02/09/18 07/01/18 History Flexpen U-100 Insulin] sumatriptan [Imitrex] 20 mg INTRANASAL DAILY PRN 02/09/18 07/01/18 History thiamine HCl (vitamin B1) [Vitamin 50 mg PO HS 02/09/18 07/01/18 History B-1] valacyclovir [Valtrex] 1 g PO BID PRN 02/09/18 07/01/18 History fluconazole 150 mg PO HS 06/15/18 07/01/18 History oxycodone 5 mg PO Q6H PRN #14 tab 06/30/18 07/01/18 Rx warfarin 2.5 - 5 mg PO UD 06/30/18 07/01/18 History tamsulosin [Flomax] 0.4 mg PO DAILY 07/01/18 07/01/18 History Allergies Allergy/AdvReac Type Severity Reaction Status Date / Time morphine Allergy Severe "HEART Verified 07/01/18 20:36 STOPS BEATING" black pepper Allergy Mild Swelling Verified 07/01/18 20:36 of Lip/Tongue/Throat ketorolac Allergy Mild ITCHY, BUT Verified 07/01/18 20:36 CAN STILL TAKE IT mushroom Allergy Mild Unknown Verified 03/20/19 20:36 Sulfa (Sulfonamide Allergy Mild Rash Verified 07/01/18 20:36 Antibiotics) terfenadine Allergy Mild RASH Verified 07/01/18 20:36 aspartame Allergy Unknown HIVES Unverified 07/01/18 20:36 chlorpheniramine Allergy Unknown "ANTIHISTAMINE Verified 07/01/18 20:36 ALLERGY" - NO ALLERGY TO CLARITIN PER PT diphenhydramine Allergy Unknown "ANTIHISTAMINE Verified 07/01/18 20:36 ALLERGY"- NO ALLERGY TO CLARITIN PER PT fexofenadine Allergy Unknown Unknown Verified 07/01/18 20:36 shellfish derived AdvReac Severe HIVES Unverified 06/30/18 16:50 Past Med/Surg History Family History Other No pertinent family history Social History Preferred Language: Greenlandic Communication Ability: Effective Beliefs That Will Affect Care: None Current Living Situation: Other Current Living Situation Comment: Roommate Feels Safe at Home: Yes Smoking Status: Never smoker Hx Alcohol Use: No Hx Substance Use: No Review of Systems See HPI for pertinent positives & negatives. and A total of 10 systems reviewed and were otherwise negative Physical Exam Vital Signs Vital Signs - 24 hr 07/02/18 00:33 07/02/18 01:04 07/02/18 07:58 Temperature 37 C 37.2 C Temperature Source Oral Oral Pulse Rate 55 L Pulse Rate [Right Finger] 62 59 L Pulse Rhythm [Right Finger] Pulse Strength [Right Finger] Respiratory Rate 17 18 16 Respiratory Effort / Characteristics Non-Labored Spontaneous Respiratory Depth Normal Normal Respiratory Pattern Regular Blood Pressure 115/63 Blood Pressure [Right Arm] 121/86 100/55 L Blood Pressure Mean [Right Arm] 97 70 Blood Pressure Position [Right Arm] Sitting Lying Pulse Oximetry 95 98 95 Oxygen Delivery Method Room Air Room Air Room Air 07/02/18 15:33 07/02/18 20:39 07/02/18 23:00 Temperature 37 C 37.3 C 36.8 C Temperature Source Oral Oral Oral Pulse Rate Pulse Rate [Right Finger] 59 L 63 77 Pulse Rhythm [Right Finger] Regular Pulse Strength [Right Finger] Normal Respiratory Rate 16 16 20 Respiratory Effort / Characteristics Non-Labored Spontaneous Respiratory Depth Normal Normal Respiratory Pattern Regular Blood Pressure Blood Pressure [Right Arm] 96/60 L 116/76 124/77 Blood Pressure Mean [Right Arm] 72 89 92 Blood Pressure Position [Right Arm] Lying Sitting Lying Pulse Oximetry 95 97 90 Oxygen Delivery Method Room Air Room Air GENERAL: alert, uncomfortable appearing, well nourished, mild distress, non- toxic. BMI 47.5. EYE EXAM: normal conjunctiva, PERRL and EOM's grossly intact OROPHARYNX: no exudate, no erythema, lips, buccal mucosa, and tongue normal and mucous membranes are moist NECK: supple, no nuchal rigidity, no adenopathy, non-tender LUNGS: Clear to auscultation. Normal chest wall mechanics HEART: no murmurs, S1 normal and S2 normal ABDOMEN: abdomen soft, non-tender, normo-active bowel sounds, no masses, no rebound or guarding. BACK: Back is symmetrical on inspection and there is no deformity, no midline tenderness, no CVA tenderness. SKIN: no rashes and no bruising UPPER EXTREMITIES: upper extremities are grossly normal. FROM, nml pulses b/l. LOWER EXTREMITIES: No pitting edema. FROM, nml pulses b/l. NEURO EXAM: Normal sensorium, cranial nerves II-XII grossly intact, normal speech, no gross weakness of arms, no gross weakness of legs. Course 1942: Past medical records reviewed. The patient was evaluated in room A11B, and a complete history and physical examination were performed. 2039: I updated the patient at this time. She is agreeable to inpatient stay. 2054: I reviewed the patient's case with Dr. Baez [facility] Hospitalist. He will evaluate the patient for further management. 2329: Case discussed with Dr. Acuña. Given migration of stone feels pt will most likely be able to pass stone and at this time should be kept on her regular anticoagulation. Consultations Consultation #1: Discussed with Dr. Acuña. Time: 23:30 Administered Medications Doxazosin Mesylate (Cardura) 2 mg PO HS MICHELLE Stop: 08/01/18 20:59 Last Admin: 07/02/18 20:59 Dose: 2 mg Documented by: [id number] Hydromorphone HCl (Dilaudid) 0.5 mg IV Q4H PRN PRN Reason: Pain Stop: 07/16/18 08:34 Last Admin: 07/02/18 20:43 Dose: 0.5 mg Documented by: [id number] Admin: 07/02/18 11:47 Dose: 0.5 mg Documented by: [id number] Prochlorperazine 10 mg/ (Syringe) 10 mls @ 5 mls/min IV Q6H PRN PRN Reason: Nausea And Vomiting Stop: 07/31/18 22:17 Last Admin: 07/02/18 12:36 Dose: 5 mls/min Documented by: [id number] Admin: 07/01/18 22:34 Dose: 5 mls/min Documented by: [id number] Ceftriaxone Sodium 1,000 mg/ (Dextrose) 60 mls @ 100 mls/hr IV DAILY@0200 MICHELLE Stop: 07/12/18 01:59 Last Infusion: 07/02/18 01:52 Dose: 0 mls/hr Documented by: [id number] Admin: 07/02/18 01:18 Dose: 100 mls/hr Documented by: [id number] Potassium Chloride/Sodium Chloride (Normal Saline W/20 Meq Kcl) 20 meq in 1,000 mls @ 100 mls/hr IV .Q10H MICHELLE Stop: 08/01/18 00:59 Last Admin: 07/02/18 21:00 Dose: 100 mls/hr Documented by: [id number] Infusion: 07/02/18 21:00 Dose: 100 mls/hr Documented by: [id number] Admin: 07/02/18 11:00 Dose: 100 mls/hr Documented by: [id number] Infusion: 07/02/18 11:00 Dose: 100 mls/hr Documented by: [id number] Admin: 07/02/18 01:18 Dose: 100 mls/hr Documented by: [id number] Insulin Aspart (Novolog Flexpen) 0 units SC ACHS MICHELLE Stop: 08/01/18 05:59 Last Admin: 07/02/18 21:11 Dose: Not Given Documented by: [id number] Cosigned by: [id number] Admin: 07/02/18 19:20 Dose: 3 units Documented by: [id number] Cosigned by: [id number] Admin: 07/02/18 13:02 Dose: 5 units Documented by: [id number] Cosigned by: [id number] Miscellaneous (Order Awaiting Action) 1 ea N/A QS MICHELLE Stop: 08/01/18 07:59 Last Admin: 07/02/18 19:19 Dose: Not Given Documented by: [id number] Admin: 07/02/18 08:14 Dose: Not Given Documented by: [id number] Ondansetron HCl (Zofran) 4 mg IV Q6H PRN PRN Reason: Nausea Stop: 08/01/18 00:58 Last Admin: 07/02/18 20:43 Dose: 4 mg Documented by: [id number] Admin: 07/02/18 11:00 Dose: 4 mg Documented by: [id number] Pantoprazole Sodium (Protonix) 40 mg PO QAM MICHELLE Stop: 08/01/18 08:59 Last Admin: 07/02/18 09:19 Dose: 40 mg Documented by: [id number] Ranitidine HCl (Zantac) 300 mg PO [facility] Stop: 08/01/18 20:59 Last Admin: 07/02/18 20:59 Dose: 300 mg Documented by: [id number] Tamsulosin HCl (Flomax) 0.4 mg PO DAILY MICHELLE Stop: 08/01/18 08:59 Last Admin: 07/02/18 09:19 Dose: 0.4 mg Documented by: [id number] Tapentadol (Nucynta) 100 mg PO TID [facility] Stop: 07/16/18 08:59 Last Admin: 07/02/18 21:00 Dose: 100 mg Documented by: [id number] Admin: 07/02/18 14:48 Dose: 100 mg Documented by: [id number] Admin: 07/02/18 09:19 Dose: 100 mg Documented by: [id number] Tapentadol (Nucynta Er) 100 mg PO [facility] Stop: 07/16/18 20:59 Last Admin: 07/02/18 20:59 Dose: 100 mg Documented by: [id number] Thiamine HCl (Vitamin B-1) 50 mg PO [facility] Stop: 08/01/18 20:59 Last Admin: 07/02/18 20:59 Dose: 50 mg Documented by: [id number] Topiramate (Topamax) 25 mg PO [facility] Stop: 08/01/18 20:59 Last Admin: 07/02/18 20:59 Dose: 25 mg Documented by: [id number] Trazodone HCl (Desyrel) 50 mg PO [facility] Stop: 08/01/18 20:59 Last Admin: 07/02/18 20:22 Dose: 50 mg Documented by: [id number] Warfarin Sodium (Coumadin) 2.5 mg PO DAILY@1600 [facility] Stop: 08/01/18 18:34 Last Admin: 07/02/18 19:29 Dose: 2.5 mg Documented by: [id number] Zolpidem Tartrate (Ambien) 10 mg PO HS MICHELLE Stop: 08/01/18 20:59 Last Admin: 07/02/18 20:21 Dose: 10 mg Documented by: [id number] Discontinued Medications Hydromorphone HCl (Dilaudid) 0.5 mg IV Q15M PRN PRN Reason: Pain Stop: 07/15/18 19:48 Last Admin: 07/01/18 22:34 Dose: 0.5 mg Documented by: [id number] Admin: 07/01/18 20:38 Dose: 0.5 mg Documented by: [id number] Admin: 07/01/18 20:05 Dose: 0.5 mg Documented by: [id number] Sodium Chloride (Nss) 500 mls @ 999 mls/hr IV .Q31M ONE Stop: 07/01/18 20:19 Last Infusion: 07/01/18 21:11 Dose: 0 mls/hr Documented by: [id number] Admin: 07/01/18 20:05 Dose: 999 mls/hr Documented by: [id number] Insulin Aspart (Novolog Flexpen) 0 units SC Q6 MICHELLE Stop: 08/01/18 05:59 Last Admin: 07/02/18 06:06 Dose: Not Given Documented by: [id number] Cosigned by: [id number] Miscellaneous Information (Nursing To Pharmacy Communication) 1 ea N/A ONE ONE Stop: 07/02/18 09:06 Last Admin: 07/02/18 22:03 Dose: Not Given Documented by: [id number] Ondansetron HCl (Zofran) 4 mg IV NOW STA Stop: 07/01/18 19:50 Last Admin: 07/01/18 20:05 Dose: 4 mg Documented by: [id number] Ondansetron HCl (Zofran) 4 mg IV NOW STA Stop: 07/01/18 21:32 Last Admin: 07/01/18 21:33 Dose: 4 mg Documented by: [id number] Prochlorperazine (Compazine) Confirm Administered Dose 10 mg .ROUTE .STK-MED ONE Stop: 07/01/18 22:33 Last Admin: 07/01/18 22:34 Dose: Not Given Documented by: [id number] Tamsulosin HCl (Flomax) 0.4 mg PO NOW ONE Stop: 07/01/18 20:37 Last Admin: 07/01/18 20:43 Dose: 0.4 mg Documented by: [id number] Medical Decision Making Differential Diagnosis Differential diagnosis: Etiologies such as shingles, pyelonephritis/UTI, renal colic, appendicitis, diverticulitis, mesenteric ischemia, torsion, aortic pathology, infections, inflammatory bowel disease, bowel obstruction, PUD, biliary pathology, as well as others were entertained. Medical Records Attestation: I reviewed the patient's medical records. Home Medications Current Medication List: was personally reviewed by me Laboratory Data Attestation: I reviewed the patient's lab results. Result diagrams: 07/01/18 19:30 07/01/18 19:30 Lab Results 07/01/18 07/01/18 07/01/18 Range/Units 19:30 19:30 19:30 WBC 18.52 H (4.8-10.8) K/uL RBC 4.49 (4.2-5.4) M/uL Hgb 12.0 (12.0-16.0) g/dL Hct 36.9 L (37-47) % MCV 82.2 (80-100) fL MCH 26.7 (25-34) pg MCHC 32.5 (32-36) g/dL RDW Std Deviation 43.8 (36.4-46.3) fL RDW Coeff of Annalee 14.8 H (11.5-14.5) % Plt Count 332 (130-400) K/uL MPV 9.8 (7.4-10.4) fL Immature Gran % (Auto) 0.3 % Neut % (Auto) 83.2 % Lymph % (Auto) 9.8 % [place]ward % (Auto) 6.6 % Eos % (Auto) 0.0 % Baso % (Auto) 0.1 % Immature Gran # (Auto) 0.06 H (0.00-0.02) K/uL Neut # (Auto) 15.40 H (1.4-6.5) K/uL Lymph # (Auto) 1.82 (1.2-3.4) K/uL [place]ward # (Auto) 1.22 H (0.11-0.59) K/uL Eos # (Auto) 0.00 (0-0.5) K/uL Baso # (Auto) 0.02 (0-0.2) K/uL PT 22.5 H (9.0-12.0) Seconds INR 2.3 H (0.9-1.1) Sodium 138 (136-145) mmol/L Potassium 3.8 (3.5-5.1) mmol/L Chloride 106 (98-107) mmol/L Carbon Dioxide 26 (21-32) mmol/L Anion Gap 7.0 (3-11) BUN 13 (7-18) mg/dl Creatinine 0.77 (0.6-1.2) mg/dl Est Cr Clr Drug Dosing 145.3 ml/min Est GFR ( Amer) 114.3 Est GFR (Non-Af Amer) 98.6 BUN/Creatinine Ratio 16.9 (10-20) Glucose 142 H (70-99) mg/dl POC Glucose (70-99) Calcium 8.9 (8.5-10.1) mg/dl Specimen Hemolysis Urine Color Urine Appearance (Clear) Urine pH (4.5-7.5) Ur Specific [place] (1.000-1.030) Urine Protein (Negative) Urine Glucose (UA) (Negative) Urine Ketones (Negative) Urine Blood (Negative) Urine Nitrite (Negative) Urine Bilirubin (Negative) Urine Urobilinogen (Negative) Ur Leukocyte Esterase (Negative) Urine RBC (0-4) /hpf Urine WBC (0-5) /hpf Ur Epithelial Cells (0-5) /lpf Urine Bacteria (Negative) 07/01/18 07/02/18 07/02/18 Range/Units 19:30 01:04 06:00 WBC (4.8-10.8) K/uL RBC (4.2-5.4) M/uL Hgb (12.0-16.0) g/dL Hct (37-47) % MCV (80-100) fL MCH (25-34) pg MCHC (32-36) g/dL RDW Std Deviation (36.4-46.3) fL RDW Coeff of Annalee (11.5-14.5) % Plt Count (130-400) K/uL MPV (7.4-10.4) fL Immature Gran % (Auto) % Neut % (Auto) % Lymph % (Auto) % [place] % (Auto) % Eos % (Auto) % Baso % (Auto) % Immature Gran # (Auto) (0.00-0.02) K/uL Neut # (Auto) (1.4-6.5) K/uL Lymph # (Auto) (1.2-3.4) K/uL [place]ward # (Auto) (0.11-0.59) K/uL Eos # (Auto) (0-0.5) K/uL Baso # (Auto) (0-0.2) K/uL PT (9.0-12.0) Seconds INR (0.9-1.1) Sodium (136-145) mmol/L Potassium (3.5-5.1) mmol/L Chloride (98-107) mmol/L Carbon Dioxide (21-32) mmol/L Anion Gap (3-11) BUN (7-18) mg/dl Creatinine (0.6-1.2) mg/dl Est Cr Clr Drug Dosing ml/min Est GFR ( Amer) Est GFR (Non-Af Amer) BUN/Creatinine Ratio (10-20) Glucose (70-99) mg/dl POC Glucose 131 H 145 H (70-99) Calcium (8.5-10.1) mg/dl Specimen Hemolysis Urine Color Jade Urine Appearance Turbid H (Clear) Urine pH 6.0 (4.5-7.5) Ur Specific [place] >= 1.030 (1.000-1.030) Urine Protein 2+ H (Negative) Urine Glucose (UA) Negative (Negative) Urine Ketones Negative (Negative) Urine Blood 3+ H (Negative) Urine Nitrite Negative (Negative) Urine Bilirubin Negative (Negative) Urine Urobilinogen Negative (Negative) Ur Leukocyte Esterase Negative (Negative) Urine RBC >30 H (0-4) /hpf Urine WBC >30 H (0-5) /hpf Ur Epithelial Cells >30 H (0-5) /lpf Urine Bacteria 1+ H (Negative) 07/02/18 07/02/18 07/02/18 Range/Units 09:14 12:28 16:53 WBC (4.8-10.8) K/uL RBC (4.2-5.4) M/uL Hgb (12.0-16.0) g/dL Hct (37-47) % MCV (80-100) fL MCH (25-34) pg MCHC (32-36) g/dL RDW Std Deviation (36.4-46.3) fL RDW Coeff of Annalee (11.5-14.5) % Plt Count (130-400) K/uL MPV (7.4-10.4) fL Immature Gran % (Auto) % Neut % (Auto) % Lymph % (Auto) % [place] % (Auto) % Eos % (Auto) % Baso % (Auto) % Immature Gran # (Auto) (0.00-0.02) K/uL Neut # (Auto) (1.4-6.5) K/uL Lymph # (Auto) (1.2-3.4) K/uL [place] # (Auto) (0.11-0.59) K/uL Eos # (Auto) (0-0.5) K/uL Baso # (Auto) (0-0.2) K/uL PT (9.0-12.0) Seconds INR (0.9-1.1) Sodium (136-145) mmol/L Potassium (3.5-5.1) mmol/L Chloride (98-107) mmol/L Carbon Dioxide (21-32) mmol/L Anion Gap (3-11) BUN (7-18) mg/dl Creatinine (0.6-1.2) mg/dl Est Cr Clr Drug Dosing ml/min Est GFR ( Amer) Est GFR (Non-Af Amer) BUN/Creatinine Ratio (10-20) Glucose (70-99) mg/dl POC Glucose 151 H 181 H 124 H (70-99) Calcium (8.5-10.1) mg/dl Specimen Hemolysis Urine Color Urine Appearance (Clear) Urine pH (4.5-7.5) Ur Specific [place] (1.000-1.030) Urine Protein (Negative) Urine Glucose (UA) (Negative) Urine Ketones (Negative) Urine Blood (Negative) Urine Nitrite (Negative) Urine Bilirubin (Negative) Urine Urobilinogen (Negative) Ur Leukocyte Esterase (Negative) Urine RBC (0-4) /hpf Urine WBC (0-5) /hpf Ur Epithelial Cells (0-5) /lpf Urine Bacteria (Negative) 07/02/18 Range/Units 20:51 WBC (4.8-10.8) K/uL RBC (4.2-5.4) M/uL Hgb (12.0-16.0) g/dL Hct (37-47) % MCV (80-100) fL MCH (25-34) pg MCHC (32-36) g/dL RDW Std Deviation (36.4-46.3) fL RDW Coeff of Annalee (11.5-14.5) % Plt Count (130-400) K/uL MPV (7.4-10.4) fL Immature Gran % (Auto) % Neut % (Auto) % Lymph % (Auto) % [place] % (Auto) % Eos % (Auto) % Baso % (Auto) % Immature Gran # (Auto) (0.00-0.02) K/uL Neut # (Auto) (1.4-6.5) K/uL Lymph # (Auto) (1.2-3.4) K/uL [place] # (Auto) (0.11-0.59) K/uL Eos # (Auto) (0-0.5) K/uL Baso # (Auto) (0-0.2) K/uL PT (9.0-12.0) Seconds INR (0.9-1.1) Sodium (136-145) mmol/L Potassium (3.5-5.1) mmol/L Chloride (98-107) mmol/L Carbon Dioxide (21-32) mmol/L Anion Gap (3-11) BUN (7-18) mg/dl Creatinine (0.6-1.2) mg/dl Est Cr Clr Drug Dosing ml/min Est GFR ( Amer) Est GFR (Non-Af Amer) BUN/Creatinine Ratio (10-20) Glucose (70-99) mg/dl POC Glucose 142 H (70-99) Calcium (8.5-10.1) mg/dl Specimen Hemolysis Urine Color Urine Appearance (Clear) Urine pH (4.5-7.5) Ur Specific [place] (1.000-1.030) Urine Protein (Negative) Urine Glucose (UA) (Negative) Urine Ketones (Negative) Urine Blood (Negative) Urine Nitrite (Negative) Urine Bilirubin (Negative) Urine Urobilinogen (Negative) Ur Leukocyte Esterase (Negative) Urine RBC (0-4) /hpf Urine WBC (0-5) /hpf Ur Epithelial Cells (0-5) /lpf Urine Bacteria (Negative) Imaging Data Attestation: I personally reviewed and interpreted this imaging study as follows: Radiologist's Impression: XR KUB CLINICAL HISTORY: known stone, worse pain flank pain COMPARISON STUDY: 06/30/2018 FINDINGS: Previously described proximal left ureteral calculus appears to have passed to the lower pole left kidney in retrograde fashion. Minimal bilateral nephrocalcinosis is again noted. Bowel pattern is nonobstructive. IMPRESSION: The proximal left ureteral calculus previously described has moved in a retrograde fashion to the lower pole of the left kidney. The above report was generated using voice recognition software. It may contain grammatical, syntax or spelling errors. Electronically signed by: Kendall Zamarripa M.D. 07/01/2018 8:36 PM Blood Pressure Blood Pressure Findings: Elevated blood pressure Blood Pressure Disposition: further management by hospitalist MDM Narrative Patient here markedly uncomfortable appearing and seemingly failing outpatient management due to persistent pain as well as recurrent nausea vomiting. Patient here afebrile. Patient with elevated white blood cell count, unclear if related to evolving infection versus stress response. UA yesterday did not show any evidence of infection. Repeat labs otherwise reassuring, no evidence of worsening renal dysfunction or AK I. Stone again noted on KUB. After discussion with hospitalist for additional evaluation and management regarding failed outpatient treatment, they requested additional CT. CT did show that stone appeared lower compared to KUB yesterday. They requested consultation by Dr. Acuña. I called and discussed case with Dr. Acuña due to concern for possible intervention given prior history as well as patient's recent initiation of anticoagulation. Dr. Acuña felt patient could be maintained on anticoagulation at this time and felt need for operative intervention was less likely. Impression & Plan Vomiting, Hematuria, Kidney stone, Intractable pain Discharge Plan Visit Data *Final* Discharge Date/Time: 07/02/18 00:33 Chief Complaint: Kidney Stone Stated Complaint: VOMITING,KIDNEY STONE ED Provider: Marilyn Hare Discharge Problem: Vomiting, Hematuria, Kidney stone, Intractable pain Patient Disposition: Admitted As Inpatient Discharge Instructions Interventions: ED Discharge Assessment Last Done: 07/02/18 00:33 Discharge Problem: Vomiting Qualifiers: Vomiting type: unspecified Vomiting Intractability: non-intractable Nausea presence: with nausea Qualified Code(s): R11.2 - Nausea with vomiting, unspecified Hematuria Qualifiers: Hematuria type: unspecified type Qualified Code(s): R31.9 - Hematuria, unspecified The scribe's documentation has been prepared under my direction and personally reviewed by me in its entirety. I confirm that the note above accurately reflects all work, treatment, procedures, and medical decision making performed by me.
[2018-07-02] MEDS ORDERED: GLUCOSE 10 TABS/TUBE PO PRN (00:59)
[2018-07-02] MEDS ORDERED: CARBOHYDRATES FOR HYPOGLYCEMIA PO PRN (00:59)
[2018-07-02] MEDS ORDERED: GLUCAGON FOR INJ 1 MG VIAL SQ PRN (00:59)
[2018-07-02] MEDS ORDERED: DEXTROSE 50% 50 ML SYRINGE IV PRN (00:59)
[2018-07-02] MEDS ORDERED: GLUCOSE 40% GEL 15 GM TUBE PO PRN (00:59)
[2018-07-02] MEDS: NSS + 20MEQ KCL 20 MEQ/1,000 ML BAG IV SCH ×3 (01:18→21:00)
[2018-07-02] MEDS: cefTRIAXone SODIUM 1,000 MG in DEXTROSE 5% 50 ML IV SCH (01:18)
[2018-07-02] MEDS ORDERED: Nursing to Pharmacy Communication ONE ×2 (01:30→09:05)
[2018-07-02] MEDS ORDERED: INSULIN ASPART 100 UNITS/ML 3 ML PEN SC SCH ×2 (06:00→07:30)
[2018-07-02] MEDS: TAPENTADOL HCL 50 MG TAB PO SCH ×4 (08:15→21:00)
[2018-07-02] MEDS: TAMSULOSIN HCL 0.4 MG CAP PO SCH ×2 (08:15→09:19)
[2018-07-02] MEDS: PANTOprazole 40 MG TAB PO SCH ×2 (08:15→09:19)
[2018-07-02] MEDS: ONDANSETRON INJ 2 MG/ML 2 ML VIAL IV PRN ×2 (11:00→20:43)
[2018-07-02] MEDS: HYDROmorphone INJ 0.5 MG/0.5 ML SYR IV PRN ×2 (11:47→20:43)
[2018-07-02] MEDS: PROCHLORPERAZINE 10 MG in SYRINGE 8 ML IV PRN (12:36)
[2018-07-02] MEDS: INSULIN ASPART 100 UNITS/ML 3 ML PEN SC SCH ×3 (13:02→21:11)
--- NOTE | 2018-07-02 18:04 | Urology Consultation ---
Date of Consultation July 02, 2018 Assessment & Plan (1) Pulmonary emboli: (2) Diabetes: (3) Calculus, ureter: (4) Left ureteral calculus: as the stone is small 4mm and progressing sown the ureter and she is comfortable now I suggest we wait 1-2 days for it to pass. It is quite likely to do so . SHe may have normal diet through breakfast Friday. Then NPO except meds. I will speak with her friday afternoon about surgery Friday night or friday. Can continue coumadin uninterrupted. strain urine Present on Admission?: Yes History of Present Illness Reason for Consultation: left ureteral stone Requesting Physician: Dr Monte Attending Physician: Saud Monte, DO History of Present Illness I am asked by Dr Monte to evaluate and treat patient for left ureteral stone. She has been having pain for several days. Pain was mild a few days then severe yesterday and mild again today. Stone has been making steady progress down ureter and now resides 1 inch above the bladder. She had nausea and emesis Friday but none today, . She feels less pain today. Allergies Allergy/AdvReac Type Severity Reaction Status Date / Time morphine Allergy Severe "HEART Verified 07/01/18 20:36 STOPS BEATING" black pepper Allergy Mild Swelling Verified 07/01/18 20:36 of Lip/Tongue/Throat ketorolac Allergy Mild ITCHY, BUT Verified 07/01/18 20:36 CAN STILL TAKE IT mushroom Allergy Mild Unknown Verified 07/01/18 20:36 Sulfa (Sulfonamide Allergy Mild Rash Verified 07/01/18 20:36 Antibiotics) terfenadine Allergy Mild RASH Verified 07/01/18 20:36 aspartame Allergy Unknown HIVES Unverified 07/01/18 20:36 chlorpheniramine Allergy Unknown "ANTIHISTAMINE Verified 07/01/18 20:36 ALLERGY" - NO ALLERGY TO CLARITIN PER PT diphenhydramine Allergy Unknown "ANTIHISTAMINE Verified 07/01/18 20:36 ALLERGY"- NO ALLERGY TO CLARITIN PER PT fexofenadine Allergy Unknown Unknown Verified 07/01/18 20:36 shellfish derived AdvReac Severe HIVES Unverified 06/30/18 16:50 Home Medications Home Medications Medication Instructions Recorded Confirmed Type cyclobenzaprine 10 mg PO BID 12/29/17 07/01/18 History doxazosin 2 mg PO HS 12/29/17 07/01/18 History exenatide microspheres 2 mg SUBCUT WK 12/29/17 07/01/18 History glimepiride 4 mg PO BID 12/29/17 07/01/18 History metformin 750 mg PO BID 12/29/17 07/01/18 History pantoprazole 40 mg PO QAM 12/29/17 07/01/18 History ranitidine HCl [Zantac] 600 mg PO HS 12/29/17 07/01/18 History tapentadol [Nucynta ER] 100 mg PO HS 12/29/17 07/01/18 History tapentadol [Nucynta] 100 mg PO TID 12/29/17 07/01/18 History topiramate 25 mg PO HS 12/29/17 07/01/18 History trazodone 50 mg PO HS 12/29/17 07/01/18 History zolpidem [Ambien] 10 mg PO HS 12/29/17 07/01/18 History cholecalciferol (vitamin D3) 4,000 units PO HS 02/09/18 07/01/18 History [Vitamin D3] fluticasone propionate [Flonase 1 spray INTRANASAL DAILY PRN 02/09/18 07/01/18 History Allergy Relief] hydroxyzine pamoate [Vistaril] 25 mg PO DAILY PRN 02/09/18 07/01/18 History hydroxyzine pamoate [Vistaril] 25 mg PO HS 02/09/18 07/01/18 History insulin aspart U-100 [Novolog 1 dose SUBCUT AC PRN 02/09/18 07/01/18 History Flexpen U-100 Insulin] sumatriptan [Imitrex] 20 mg INTRANASAL DAILY PRN 02/09/18 07/01/18 History thiamine HCl (vitamin B1) [Vitamin 50 mg PO HS 02/09/18 07/01/18 History B-1] valacyclovir [Valtrex] 1 g PO BID PRN 02/09/18 07/01/18 History fluconazole 150 mg PO HS 06/15/18 07/01/18 History oxycodone 5 mg PO Q6H PRN #14 tab 06/30/18 07/01/18 Rx warfarin 2.5 - 5 mg PO UD 06/30/18 07/01/18 History tamsulosin [Flomax] 0.4 mg PO DAILY 07/01/18 07/01/18 History Patient History Medical History Diabetes (Chronic) Polysubstance overdose (Resolved) Pyelonephritis (Resolved) Calculus, ureter (Resolved 02/12/14) Hydronephrosis (Acute) Mood disorder (Chronic) Renal colic (Chronic) Right ureteral stone (Resolved) Urinary tract infection (Resolved) Pulmonary emboli History of wisdom tooth extraction Surgical History History of appendectomy History of cystoscopy History of uvulopalatopharyngoplasty Family History Other No pertinent family history Social History Preferred Language: Maltese Communication Ability: Effective Beliefs That Will Affect Care: None Current Living Situation: Other Current Living Situation Comment: Roommate Feels Safe at Home: Yes Smoking Status: Never smoker Hx Alcohol Use: No Hx Substance Use: No Review of Systems Soc- no tobacco no alcohol, unemployed, single no children Fam Hx- + stones, no cancer ROS- no fever no chills, no chest pain, no shortness of breath, + nausea + emesis, no seizures, + rash left wrist from jewelry (watch), bowels fine, vision fine, no swelling Physical Exam Vital Signs (Past 24 Hours): Last Vital Signs Temp 37 C 07/02/18 15:33 Pulse 59 L 07/02/18 15:33 Resp 16 07/02/18 15:33 BP 96/60 L 07/02/18 15:33 Pulse Ox 95 07/02/18 15:33 Constitutional: WD/WN, vitals as above + well hydrated, + morbidly obese, + obese, well groomed and cooperative; no acute distress Respiratory: normal respiratory effort, able to speak in complete sentences and symmetric chest movement; no respiratory distress and no cough Gastrointestinal (Abdomen): normal bowel sounds, soft, nontender, no hepatosplenomegaly Psychiatric: A+Ox3, euthymic affect Lymphatic: no cervical or axillary lymphadenopathy no lymphedema and no preauricular lymphadenopathy
--- NOTE | 2018-07-02 18:13 | Hospitalist Progress Note ---
Date of Service July 02, 2018 Assessment & Plan (1) Left ureteral calculus: - CT with 3 mm obstructing calculus distal left ureter at the mid left sacral iliac joint level; renal function stable - Continue NSS + 20 mEq K at 100 mL/hr and strain urine - Rocephin 1 g IV daily - no UCx sent from initial sample and now on Abx - UA with blood, protein, and 1+ bacterial however alot of epithelial cells - likely could treat with small course of Abx given stone - Pain control with home Nucynta and Dilaudid PRN; K-pad - Nausea control with Zofran and Compazine - Flomax daily - Urology following - suspect conservative resolution of stone given size however will be made NPO after breakfast on 07/03 if surgical intervention is necessary Present on Admission?: Yes (2) Diabetes: - T2DM - Hold home oral anti-diabetics and cover with SSI (3) Pulmonary embolism: - Recent diagnosis on June 15, 2018 - Unprovoked but patient reports she gave recent blood to look for hypercoag issues - INR currently 2.3 and will trend given recently being supratherapeutic - will give Coumadin 2.5 mg daily and monitor for dose adjustment - Urology approves continued use at this time as conservative stone management is likely -- If surgical intervention is warranted could convert to a heparin gtt and reverse Coumadin and stop gtt for procedure - hopefully will not have to worry about this (4) Mood disorder: - STABLE - Doxazosin 2 mg HS, Topiramate 25 mg HS, Trazodone 50 mg HS, Ambien 10 mg HS Subjective Reports that her nausea continues but no emesis and is improving; pain has been improving She is tolerating a diet at this time. She feels like the stone is moving and anticipating passing on its own. She denies burning on urination but states she feels like she has to urinate but is experiencing some hesitancy. Denies fever/chills. Constitutional: no fever and no chills Respiratory: no cough and no dyspnea Cardiovascular: no chest pain, no palpitations and no edema Gastrointestinal: no abdominal pain, no nausea, no vomiting, no constipation and no diarrhea/loose stools Genitourinary (Female): + difficulty urinating, + urinary hesitancy, + hematuria and + flank pain (L); no dysuria Integumentary: no rash Physical Exam Vital Signs (Past 24 Hours): Last Vital Signs Temp 37 C 07/02/18 15:33 Pulse 59 L 07/02/18 15:33 Resp 16 07/02/18 15:33 BP 96/60 L 07/02/18 15:33 Pulse Ox 95 07/02/18 15:33 Constitutional: WD/WN, vitals as above Eyes: + anicteric sclerae ENMT: Ears: no hearing impairment Neck: normal visual inspection and trachea midline Respiratory: normal respiratory effort, lungs clear to auscultation Cardiovascular: RRR, no murmur, no edema Gastrointestinal (Abdomen): Inspection/Auscultation: normal bowel sounds Percussion/Palpation: abdomen soft; abdomen nontender Musculoskeletal: Head/Neck/Chest: normocephalic and head atraumatic Extremities: no cyanosis and no clubbing Skin: no rashes, warm and dry Neurologic: moves all extremities Psychiatric: A+Ox3, euthymic affect Genitourinary: + CVA tenderness (L)
[2018-07-02] MEDS: WARFARIN SOD 2.5 MG TAB PO SCH (19:29)
[2018-07-02] MEDS: ZOLPIDEM TARTRATE 10 MG TAB PO SCH (20:21)
[2018-07-02] MEDS: TRAZODONE HCL 50 MG TAB PO SCH (20:22)
[2018-07-02] MEDS: DOXAZosin MESYLATE TAB 2 MG TAB PO SCH (20:59)
[2018-07-02] MEDS: TAPENTADOL HCL ER 50 MG TABCR PO SCH (20:59)
[2018-07-02] MEDS: TOPIRAMATE 25 MG TAB PO SCH (20:59)
[2018-07-02] MEDS: THIAMINE HCL 50 MG TABLET PO SCH (20:59)
[2018-07-03] MEDS: cefTRIAXone SODIUM 1,000 MG in DEXTROSE 5% 50 ML IV SCH (02:13)
[2018-07-03 06:13] LABS: Hematocrit (blood only) 33.8 % (37-47); Hemoglobin 11.1 g/dL (12.0-16.0); Mean Corpuscular Hgb Conc 32.8 g/dL (32-36); Mean Corpuscular Volume 83.5 fL (80-100); Mean Platelet Volume 9.3 fL (7.4-10.4); Platelet Count 263 K/uL (130-400); RDW Standard Deviation 45.5 fL (36.4-46.3); Red Blood Count 4.05 M/uL (4.2-5.4); White Blood Count 7.65 K/uL (4.8-10.8)
[2018-07-03] MEDS: NSS + 20MEQ KCL 20 MEQ/1,000 ML BAG IV SCH ×2 (06:21→16:07)
[2018-07-03] MEDS: PROCHLORPERAZINE 10 MG in SYRINGE 8 ML IV PRN ×2 (06:22→21:20)
[2018-07-03 06:49] LABS: INR 1.5 (0.9-1.1); Prothrombin Time 15.3 Seconds (9.0-12.0)
[2018-07-03 06:50] LABS: BUN Creatinine Ratio 14.1 (10-20); Calcium 8.2 mg/dl (8.5-10.1); Creatinine Clr Calc Pharmacy 163.9 ml/min; Est GFR (African American) 129.5; Est GFR (Non-African American) 111.7
[2018-07-03] MEDS: TAPENTADOL HCL 50 MG TAB PO SCH ×3 (08:30→21:01)
[2018-07-03] MEDS: PANTOprazole 40 MG TAB PO SCH (08:30)
[2018-07-03] MEDS: TAMSULOSIN HCL 0.4 MG CAP PO SCH (08:30)
[2018-07-03] MEDS: INSULIN ASPART 100 UNITS/ML 3 ML PEN SC SCH ×5 (08:34→21:07)
--- NOTE | 2018-07-03 09:37 | Hospitalist Progress Note ---
Date of Service July 03, 2018 Assessment & Plan (1) Left ureteral calculus: - CT with 3 mm obstructing calculus distal left ureter at the mid left sacral iliac joint level; renal function stable - Continue NSS + 20 mEq K at 100 mL/hr and strain urine - Rocephin 1 g IV daily - no UCx sent from initial sample and now on Abx - UA with blood, protein, and 1+ bacterial however a lot of epithelial cells - likely could treat with small course of Abx given stone - Pain control with home Nucynta and Dilaudid PRN; K-pad - Nausea control with Zofran and Compazine - Flomax daily - Urology following - suspect conservative resolution of stone given size however will be made NPO after breakfast today if surgical intervention is necessary (2) Diabetes: - T2DM - Hold home oral anti-diabetics and cover with SSI (3) Pulmonary embolism: - Recent diagnosis on June 15, 2018 - Unprovoked but patient reports she gave recent blood to look for hypercoag issues - INR currently 1.5 and will trend given recently being supratherapeutic - pending course of the day if surgical needs are present can adjust Coumadin dosing to better improve INR - Urology approves continued use at this time as conservative stone management is likely -- If surgical intervention is warranted could convert to a heparin gtt and reverse Coumadin and stop gtt for procedure - hopefully will not have to worry about this (4) Mood disorder: - STABLE - Doxazosin 2 mg HS, Topiramate 25 mg HS, Trazodone 50 mg HS, Ambien 10 mg HS Subjective Reports that her nausea and pain is improving but not completely resolved. Medications keeping symptoms managed. Reports just generalized fatigue. Has not passed the stone at this point. Didn't have much of an appetite for breakfast this AM. She is NPO now while awaiting passing of stone vs intervention Constitutional: + fatigue and + anorexia; no fever and no chills Respiratory: no cough and no dyspnea Cardiovascular: no chest pain Gastrointestinal: + nausea; no abdominal pain, no vomiting, no constipation and no diarrhea/loose stools Genitourinary (Female): + difficulty urinating, + urinary hesitancy, + hematuria and + flank pain (L); no dysuria Integumentary: no rash Physical Exam Vital Signs (Past 24 Hours): Last Vital Signs Temp 36.8 C 07/02/18 23:00 Pulse 69 07/03/18 07:00 Resp 15 07/03/18 07:00 BP 97/57 L 07/03/18 07:00 Pulse Ox 93 07/03/18 07:00 Constitutional: WD/WN, vitals as above Eyes: + anicteric sclerae ENMT: Ears: no hearing impairment Neck: normal visual inspection and trachea midline Respiratory: normal respiratory effort, lungs clear to auscultation Cardiovascular: RRR, no murmur, no edema Gastrointestinal (Abdomen): Inspection/Auscultation: normal bowel sounds Percussion/Palpation: abdomen soft; abdomen nontender Musculoskeletal: Head/Neck/Chest: normocephalic and head atraumatic Extremities: no cyanosis and no clubbing Skin: no rashes, warm and dry Neurologic: moves all extremities Psychiatric: A+Ox3, euthymic affect
[2018-07-03] MEDS: ONDANSETRON INJ 2 MG/ML 2 ML VIAL IV PRN ×2 (10:33→19:31)
[2018-07-03] MEDS: HYDROmorphone INJ 0.5 MG/0.5 ML SYR IV PRN ×2 (10:34→19:30)
--- NOTE | 2018-07-03 15:13 | Urology Progress Note ---
Date of Service July 03, 2018 Subjective spoke with patient by phone today she had another mild and limited colic episode this am and is currently feeling fine again. she would like to continue to wait for stone to pass. she would prefer one more overnight in hospital as she has found the iv fluids and iv nausea medicine helpful. Dr Agee will see her tomorrow. she may have her general diabetic diet again. No need for antibiotics at this time. Physical Exam Vital Signs (Past 24 Hours): Last Vital Signs Temp 36.7 C 07/03/18 15:02 Pulse 70 07/03/18 15:02 Resp 16 07/03/18 15:02 BP 106/72 07/03/18 15:02 Pulse Ox 93 07/03/18 15:02
[2018-07-03] MEDS: WARFARIN SOD 2.5 MG TAB PO SCH (15:40)
[2018-07-03] MEDS: ZOLPIDEM TARTRATE 10 MG TAB PO SCH (21:00)
[2018-07-03] MEDS: DOXAZosin MESYLATE TAB 2 MG TAB PO SCH (21:01)
[2018-07-03] MEDS: TRAZODONE HCL 50 MG TAB PO SCH (21:01)
[2018-07-03] MEDS: TAPENTADOL HCL ER 50 MG TABCR PO SCH (21:02)
[2018-07-03] MEDS: TOPIRAMATE 25 MG TAB PO SCH (21:02)
[2018-07-03] MEDS: THIAMINE HCL 50 MG TABLET PO SCH (21:02)
[2018-07-04] MEDS: NSS + 20MEQ KCL 20 MEQ/1,000 ML BAG IV SCH ×3 (02:29→22:08)
[2018-07-04] MEDS: cefTRIAXone SODIUM 1,000 MG in DEXTROSE 5% 50 ML IV SCH (02:29)
[2018-07-04] MEDS: ONDANSETRON INJ 2 MG/ML 2 ML VIAL IV PRN ×3 (04:12→22:52)
[2018-07-04 07:38] LABS: Hematocrit (blood only) 35.5 % (37-47); Hemoglobin 11.3 g/dL (12.0-16.0); Mean Corpuscular Hgb Conc 31.8 g/dL (32-36); Mean Corpuscular Volume 83.5 fL (80-100); Mean Platelet Volume 9.5 fL (7.4-10.4); Platelet Count 277 K/uL (130-400); RDW Coefficient of Variation 14.8 % (11.5-14.5); RDW Standard Deviation 45.1 fL (36.4-46.3); Red Blood Count 4.25 M/uL (4.2-5.4); White Blood Count 7.88 K/uL (4.8-10.8)
[2018-07-04 07:55] LABS: INR 1.4 (0.9-1.1); Prothrombin Time 13.9 Seconds (9.0-12.0)
[2018-07-04 08:14] LABS: BUN Creatinine Ratio 15.6 (10-20); Calcium 8.7 mg/dl (8.5-10.1); Est GFR (African American) 126.1; Est GFR (Non-African American) 108.8; Potassium 3.9 mmol/L (3.5-5.1)
[2018-07-04] MEDS: PANTOprazole 40 MG TAB PO SCH (09:13)
[2018-07-04] MEDS: TAPENTADOL HCL 50 MG TAB PO SCH ×3 (09:13→20:42)
[2018-07-04] MEDS: TAMSULOSIN HCL 0.4 MG CAP PO SCH (09:13)
[2018-07-04] MEDS: INSULIN ASPART 100 UNITS/ML 3 ML PEN SC SCH ×4 (09:16→20:43)
--- NOTE | 2018-07-04 11:18 | Urology Progress Note ---
Date of Service July 04, 2018 Assessment & Plan (1) Pulmonary embolism: (2) Left ureteral calculus: The stone appears appears to be stuck in the ureter. She has yet to pass the stone. Given her overall clinical situation and persistent symptoms, I would recommend moving forward with surgery tomorrow (Friday) for Uscope and stone extraction. Subjective Pt has not passed the stone yet. Continues to have lower abd/flank pain. Not as severe as before. Nausea continues, especially when she feels the urge to void. No hematuria. No dysuria. On coumadin for PE. Review of Systems All systems reviewed & are unremarkable except as noted in HPI & below Physical Exam Vital Signs (Past 24 Hours): Last Vital Signs Temp 37.2 C 07/04/18 07:53 Pulse 69 07/04/18 07:53 Resp 18 07/04/18 07:53 BP 121/79 07/04/18 07:53 Pulse Ox 96 07/04/18 07:53 Constitutional: WD/WN, vitals as above Gastrointestinal (Abdomen): Percussion/Palpation: + abdomen tender Psychiatric: Affect: mood congruent with affect
[2018-07-04] MEDS: PROCHLORPERAZINE 10 MG in SYRINGE 8 ML IV PRN (12:51)
--- NOTE | 2018-07-04 13:57 | Hospitalist Progress Note ---
Date of Service July 04, 2018 Assessment & Plan (1) Left ureteral calculus: - CT with 3 mm obstructing calculus distal left ureter at the mid left sacral iliac joint level; renal function stable - Continue NSS + 20 mEq K at 100 mL/hr and strain urine - can reduce rate of remove if she gets extremity swelling - patient feels it is helping her for now so will continue - Rocephin 1 g IV daily - no UCx sent from initial sample and now on Abx - UA with blood, protein, and 1+ bacterial however a lot of epithelial cells -- Urology ok with cessation of Abx but will continue until stone removal - Pain control with home Nucynta and Dilaudid PRN; K-pad - Nausea control with Zofran and Compazine - Flomax daily - Urology following - planning for scope tomorrow - ok with continuing Coumadin (2) Diabetes: - T2DM - Hold home oral anti-diabetics and cover with SSI (3) Pulmonary embolism: - Recent diagnosis on June 15, 2018 - Unprovoked but patient reports she gave recent blood to look for hypercoag issues - INR currently 1.4 and will trend given recently being supratherapeutic - will increase Coumadin to 5 mg daily and monitor INR - Urology approves continued use at this time (4) Mood disorder: - STABLE - Doxazosin 2 mg HS, Topiramate 25 mg HS, Trazodone 50 mg HS, Ambien 10 mg HS Subjective Reports feeling about the same. Medications helps for short time but overall pain is better then before. Still did not pass her stone. Continues with nausea but no emesis She is ambulating the halls. Not having issues with hand/leg swelling and would like to keep fluids running. She will be NPO at midnight for scope Constitutional: no fever and no chills Respiratory: no cough and no dyspnea Cardiovascular: no chest pain and no edema Gastrointestinal: + nausea; no abdominal pain, no vomiting, no constipation and no diarrhea/loose stools Genitourinary (Female): + difficulty urinating, + urinary hesitancy, + hematuria and + flank pain (L); no dysuria Integumentary: no rash Physical Exam Vital Signs (Past 24 Hours): Last Vital Signs Temp 37.2 C 07/04/18 07:53 Pulse 69 07/04/18 07:53 Resp 18 07/04/18 07:53 BP 121/79 07/04/18 07:53 Pulse Ox 96 07/04/18 07:53 Constitutional: WD/WN, vitals as above Eyes: + anicteric sclerae ENMT: Ears: no hearing impairment Neck: normal visual inspection and trachea midline Respiratory: normal respiratory effort, lungs clear to auscultation Cardiovascular: RRR, no murmur, no edema Gastrointestinal (Abdomen): Inspection/Auscultation: normal bowel sounds Percussion/Palpation: abdomen soft; abdomen nontender Musculoskeletal: Head/Neck/Chest: normocephalic and head atraumatic Extremities: no cyanosis and no clubbing Skin: no rashes, warm and dry Neurologic: moves all extremities Psychiatric: A+Ox3, euthymic affect
[2018-07-04] MEDS: WARFARIN SOD 5 MG TAB PO SCH (16:07)
[2018-07-04] MEDS: TAPENTADOL HCL ER 50 MG TABCR PO SCH (20:42)
[2018-07-04] MEDS: DOXAZosin MESYLATE TAB 2 MG TAB PO SCH (20:42)
[2018-07-04] MEDS: ZOLPIDEM TARTRATE 10 MG TAB PO SCH (20:42)
[2018-07-04] MEDS: TRAZODONE HCL 50 MG TAB PO SCH (20:43)
[2018-07-04] MEDS: TOPIRAMATE 25 MG TAB PO SCH (20:44)
[2018-07-04] MEDS: THIAMINE HCL 50 MG TABLET PO SCH (20:44)
[2018-07-04] MEDS: HYDROmorphone INJ 0.5 MG/0.5 ML SYR IV PRN (22:52)
[2018-07-05] MEDS: cefTRIAXone SODIUM 1,000 MG in DEXTROSE 5% 50 ML IV SCH (02:15)
[2018-07-05] MEDS ORDERED: Nursing to Pharmacy Communication ONE ×2 (04:53→13:53)
[2018-07-05] MEDS ORDERED: INSULIN ASPART 100 UNITS/ML 3 ML PEN SC SCH (06:00)
[2018-07-05 06:52] LABS: Hematocrit (blood only) 33.9 % (37-47); Hemoglobin 10.9 g/dL (12.0-16.0); Mean Corpuscular Hgb Conc 32.2 g/dL (32-36); Mean Corpuscular Volume 83.1 fL (80-100); Mean Platelet Volume 9.4 fL (7.4-10.4); Platelet Count 270 K/uL (130-400); RDW Coefficient of Variation 14.7 % (11.5-14.5); RDW Standard Deviation 44.2 fL (36.4-46.3); Red Blood Count 4.08 M/uL (4.2-5.4); White Blood Count 7.33 K/uL (4.8-10.8)
[2018-07-05 07:00] LABS: INR 1.4 (0.9-1.1)
[2018-07-05 07:26] LABS: BUN Creatinine Ratio 13.4 (10-20); Calcium 8.7 mg/dl (8.5-10.1); Creatinine Clr Calc Pharmacy 141.1 ml/min; Est GFR (African American) 110.8; Est GFR (Non-African American) 95.6
[2018-07-05] MEDS: NSS + 20MEQ KCL 20 MEQ/1,000 ML BAG IV SCH ×2 (07:57→18:37)
[2018-07-05] MEDS: ONDANSETRON INJ 2 MG/ML 2 ML VIAL IV PRN ×5 (07:57→23:51)
[2018-07-05] MEDS: TAMSULOSIN HCL 0.4 MG CAP PO SCH (09:49)
[2018-07-05] MEDS: PANTOprazole 40 MG TAB PO SCH (09:49)
[2018-07-05] MEDS: TAPENTADOL HCL 50 MG TAB PO SCH ×3 (09:49→20:59)
[2018-07-05] MEDS ORDERED: LORazepam 0.5 MG/1 ML VIAL IV ONE (10:00)
--- NOTE | 2018-07-05 11:00 | Anesthesiology Consultation ---
Date of Service July 05, 2018 Assessment & Plan (1) Encounter for pre-operative examination: Chart Review Chart Review: Acceptable Risk for Surgery and Patient NOT seen in Pre Admission Testing Consults Requested none NPO Date Last Intake of Fluids: 07/05/18 Time Last Intake of Fluids: 00:01 History Surgery Operation Date: 07/05/18 11:00 Proposed Procedures p Cystoscopy, Left Ureteroscope, Laser Litho, Stent Insertion(Left) - Lavell Agee MD Height/Weight Height: 5 ft 7 in Weight: 136.8 kg Allergies Allergy/AdvReac Type Severity Reaction Status Date / Time morphine Allergy Severe "HEART Verified 07/01/18 20:36 STOPS BEATING" black pepper Allergy Mild Swelling Verified 07/01/18 20:36 of Lip/Tongue/Throat ketorolac Allergy Mild ITCHY, BUT Verified 07/01/18 20:36 CAN STILL TAKE IT mushroom Allergy Mild Unknown Verified 07/01/18 20:36 Sulfa (Sulfonamide Allergy Mild Rash Verified 07/01/18 20:36 Antibiotics) terfenadine Allergy Mild RASH Verified 07/01/18 20:36 aspartame Allergy Unknown HIVES Unverified 07/01/18 20:36 chlorpheniramine Allergy Unknown "ANTIHISTAMINE Verified 07/01/18 20:36 ALLERGY" - NO ALLERGY TO CLARITIN PER PT diphenhydramine Allergy Unknown "ANTIHISTAMINE Verified 07/01/18 20:36 ALLERGY"- NO ALLERGY TO CLARITIN PER PT fexofenadine Allergy Unknown Unknown Verified 07/01/18 20:36 shellfish derived AdvReac Severe HIVES Unverified 06/30/18 16:50 Medications Home Medications Medication Instructions Recorded Confirmed Last Taken cyclobenzaprine 10 mg PO BID 12/29/17 07/01/18 06/30/18 doxazosin 2 mg PO HS 12/29/17 07/01/18 06/29/18 exenatide microspheres 2 mg SUBCUT WK 12/29/17 07/01/18 06/28/18 glimepiride 4 mg PO BID 12/29/17 07/01/18 06/30/18 metformin 750 mg PO BID 12/29/17 07/01/18 06/30/18 pantoprazole 40 mg PO QAM 12/29/17 07/01/18 06/30/18 ranitidine HCl [Zantac] 600 mg PO HS 12/29/17 07/01/18 06/29/18 tapentadol [Nucynta ER] 100 mg PO HS 12/29/17 07/01/18 06/29/18 tapentadol [Nucynta] 100 mg PO TID 12/29/17 07/01/18 06/30/18 topiramate 25 mg PO HS 12/29/17 07/01/18 06/29/18 trazodone 50 mg PO HS 12/29/17 07/01/18 06/29/18 zolpidem [Ambien] 10 mg PO HS 12/29/17 07/01/18 06/29/18 cholecalciferol (vitamin D3) 4,000 units PO HS 02/09/18 07/01/18 06/29/18 [Vitamin D3] fluticasone propionate [Flonase 1 spray INTRANASAL DAILY PRN 02/09/18 07/01/18 Unknown Allergy Relief] hydroxyzine pamoate [Vistaril] 25 mg PO DAILY PRN 02/09/18 07/01/18 Unknown hydroxyzine pamoate [Vistaril] 25 mg PO HS 02/09/18 07/01/18 06/29/18 insulin aspart U-100 [Novolog 1 dose SUBCUT AC PRN 02/09/18 07/01/18 06/30/18 07:00 Flexpen U-100 Insulin] 2 units sumatriptan [Imitrex] 20 mg INTRANASAL DAILY PRN 02/09/18 07/01/18 06/16/18 thiamine HCl (vitamin B1) [Vitamin 50 mg PO HS 02/09/18 07/01/18 06/29/18 B-1] valacyclovir [Valtrex] 1 g PO BID PRN 02/09/18 07/01/18 Unknown fluconazole 150 mg PO HS 06/15/18 07/01/18 06/29/18 oxycodone 5 mg PO Q6H PRN #14 tab 06/30/18 07/01/18 Unknown warfarin 2.5 - 5 mg PO UD 06/30/18 07/01/18 06/30/18 tamsulosin [Flomax] 0.4 mg PO DAILY 07/01/18 07/01/18 Unknown cariprazine [Vraylar] 4.5 mg PO DAILY 07/05/18 07/05/18 Unknown fluoxetine 10 mg PO HS 07/05/18 07/05/18 Unknown Active Medications Generic Name Dose Route Start Last Admin Trade Name Casie PRN Reason Stop Dose Admin Doxazosin Mesylate 2 mg 07/02/18 21:00 07/04/18 20:42 Cardura PO 08/01/18 20:59 2 mg HS MICHELLE Administration Hydromorphone HCl 0.5 mg 07/02/18 08:35 07/04/18 22:52 Dilaudid IV 07/16/18 08:34 0.5 mg Q4H PRN Administration Pain Prochlorperazine 10 mg/ 10 mls @ 5 mls/min 07/01/18 22:18 07/04/18 12:51 Syringe IV 07/31/18 22:17 5 mls/min Q6H PRN Administration Nausea And Vomiting Ceftriaxone Sodium 1,000 mg/ 60 mls @ 100 mls/hr 07/02/18 02:00 07/05/18 03:08 Dextrose IV 07/12/18 01:59 Infused DAILY@0200 MICHELLE Infusion Potassium Chloride/Sodium Chloride 20 meq in 1,000 mls @ 100 mls/hr 07/02/18 01:00 07/05/18 07:57 Normal Saline W/20 Meq Kcl IV 08/01/18 00:59 100 mls/hr .Q10H MICHELLE Administration Insulin Aspart 0 units 07/05/18 06:00 07/05/18 05:57 Novolog Flexpen SC 08/04/18 05:59 Not Given Q6 MICHELLE Miscellaneous 1 ea 07/02/18 08:00 07/05/18 07:57 Order Awaiting Action N/A 08/01/18 07:59 Not Given QS MICHELLE Ondansetron HCl 4 mg 07/02/18 00:59 07/05/18 07:57 Zofran IV 08/01/18 00:58 4 mg Q6H PRN Administration Nausea Pantoprazole Sodium 40 mg 07/02/18 09:00 07/05/18 09:49 Protonix PO 08/01/18 08:59 Not Given QAM MICHELLE Ranitidine HCl 300 mg 07/02/18 21:00 07/04/18 20:44 Zantac PO 08/01/18 20:59 300 mg HS MICHELLE Administration Tamsulosin HCl 0.4 mg 07/02/18 09:00 07/05/18 09:49 Flomax PO 08/01/18 08:59 Not Given DAILY MICHELLE Tapentadol 100 mg 07/02/18 09:00 07/05/18 09:49 Nucynta PO 07/16/18 08:59 Not Given TID MICHELLE Tapentadol 100 mg 07/02/18 21:00 07/04/18 20:42 Nucynta Er PO 07/16/18 20:59 100 mg HS MICHELLE Administration Thiamine HCl 50 mg 07/02/18 21:00 07/04/18 20:44 Vitamin B-1 PO 08/01/18 20:59 50 mg HS MICHELLE Administration Topiramate 25 mg 07/02/18 21:00 07/04/18 20:44 Topamax PO 08/01/18 20:59 25 mg HS MICHELLE Administration Trazodone HCl 50 mg 07/02/18 21:00 07/04/18 20:43 Desyrel PO 08/01/18 20:59 50 mg HS MICHELLE Administration Warfarin Sodium 5 mg 07/04/18 16:00 07/04/18 16:07 Coumadin PO 08/03/18 15:59 5 mg DAILY@1600 MICHELLE Administration Zolpidem Tartrate 10 mg 07/02/18 21:00 07/04/18 20:42 Ambien PO 08/01/18 20:59 10 mg HS MICHELLE Administration Beta Igor Beta Igor Taken Within 24 Hours: No Past Medical History Medical History Diabetes (Chronic) Polysubstance overdose (Resolved) Pyelonephritis (Resolved) Calculus, ureter (Resolved 02/12/14) Hydronephrosis (Acute) Mood disorder (Chronic) Renal colic (Chronic) Right ureteral stone (Resolved) Urinary tract infection (Resolved) Pulmonary emboli History of wisdom tooth extraction Past Family History Family History Other No pertinent family history Past Surgical History Surgical History History of appendectomy History of cystoscopy History of uvulopalatopharyngoplasty Past Anesthesia History No Hx of Anesthesia Complications and No Family Hx of Anesthesia Complications History of PONV No Motion Sickness Screening History of Motion Sickness: No Social History Smoking Status: Never smoker Hx Alcohol Use: No Hx Substance Use: No Exercise / Class Metabolic Activity III < 4 Walking/Shop/Light housework Physical Exam Vital Signs Last Vital Signs Temp 37.2 C 07/05/18 07:01 Pulse 69 07/05/18 07:01 Resp 16 07/05/18 07:01 BP 118/77 07/05/18 07:01 Pulse Ox 96 07/05/18 07:01 Testing Electrocardiogram Date: 06/15/18 Findings: + ST @ Sinus tachycardia RSR' or QR pattern in V1 suggests right ventricular conduction delay Nonspecific ST abnormality Abnormal ECG When compared with ECG of 08-SEP-2015 22:58, Vent. rate has increased BY [address] now depressed in Lateral leads Confirmed by JELENA ALCANTARA ([id number]) on 06/16/2018 4:20:06 PM Laboratory Results 07/05/18 06:19 07/05/18 06:19 PT 14.0 Seconds (9.0-12.0) H 07/05/18 06:19 INR 1.4 (0.9-1.1) H 07/05/18 06:19 Urine Color Jade 07/01/18 19:30 Urine Appearance Turbid (Clear) H 07/01/18 19:30 Urine pH 6.0 (4.5-7.5) 07/01/18 19:30 Ur Specific [place] >= 1.030 (1.000-1.030) 07/01/18 19:30 Urine Protein 2+ (Negative) H 07/01/18 19:30 Urine Glucose (UA) Negative (Negative) 07/01/18 19:30 Urine Ketones Negative (Negative) 07/01/18 19:30 Urine Nitrite Negative (Negative) 07/01/18 19:30 Ur Leukocyte Esterase Negative (Negative) 07/01/18 19:30 Urine RBC >30 /hpf (0-4) H 07/01/18 19:30 Urine WBC >30 /hpf (0-5) H 07/01/18 19:30 Ur Epithelial Cells >30 /lpf (0-5) H 07/01/18 19:30 07/05/18 05:41 POC Glucose 126 H
--- NOTE | 2018-07-05 11:02 | Urology Progress Note ---
Date of Service July 05, 2018 Assessment & Plan (1) Pulmonary embolism: (2) Left ureteral calculus: The stone appears appears to be stuck in the ureter. She has yet to pass the stone. Will proceed with Ureteroscopy and laser litho. Will try to defer stent placement if possible given ongoing needs of Coumadin. Subjective Pt has not passed the stone yet. Still has pain and nausea. She is nervous about surgery. No changes in urination. Physical Exam Vital Signs (Past 24 Hours): Last Vital Signs Temp 37.2 C 07/05/18 07:01 Pulse 69 07/05/18 07:01 Resp 16 07/05/18 07:01 BP 118/77 07/05/18 07:01 Pulse Ox 96 07/05/18 07:01 Constitutional: WD/WN, vitals as above Gastrointestinal (Abdomen): Percussion/Palpation: + abdomen tender Psychiatric: Affect: mood congruent with affect
[2018-07-05] MEDS ORDERED: ATROPINE SULFATE 0.1 MG/ML 10ML SYR IV PRN (11:16)
[2018-07-05] MEDS ORDERED: ePHEDrine sulfate 50 MG/ML AMP IV PRN (11:16)
[2018-07-05] MEDS ORDERED: IOTHALAMATE MEGLUMINE II 17.2% 250 ML VIAL ONE (11:36)
--- NOTE | 2018-07-05 12:02 | Post Operative Brief Note ---
Immediate Post Op Note v1 Date of Surgery July 05, 2018 Pre & Post Diagnosis Operation Date: 07/05/18 11:00 Pre-Op Diagnosis: Left Ureteral Stone Post-Op Diagnosis: Left Ureteral Stone Procedure Operation Date: 07/05/18 11:00 Actual Procedures p Cystoscopy, Left Ureteroscopy, Basket Stone Extraction (Left) - Lavell Agee MD Surgeon Lavell Agee MD Voice Writing Reporter None Estimated Blood Loss 0 Findings Consistent with Post-Op Diagnosis
[2018-07-05] MEDS: fentaNYL citrate 100 MCG/2 ML VIAL IV PRN ×3 (12:38→12:48)
[2018-07-05] MEDS: HYDROmorphone INJ 1 MG/ML SYRINGE IV PRN ×4 (12:53→13:08)
[2018-07-05] MEDS ORDERED: LORazepam 1 MG/2 ML VIAL IV PRN (13:00)
--- NOTE | 2018-07-05 13:02 | Fluoroscopy Report ---
FL retrograde includes kub CLINICAL HISTORY: CYSTO COMPARISON STUDY: CT of the abdomen and pelvis July 01, 2018. FLUOROSCOPY TIME: 6.8 seconds. FLUOROSCOPIC IMAGES: 3 FINDINGS: These images demonstrate cannulation of the left ureter. There is contrast within the left collecting system. IMPRESSION: Fluoroscopic images from left retrograde exam. Electronically signed by: Deacon Snider M.D. 07/05/2018 1:01 PM
--- NOTE | 2018-07-05 13:39 | Anesthesiology Progress Note ---
Date of Service July 05, 2018 Anesthesia Post Procedure Vital Signs Vital Signs: Temp Pulse Pulse Resp BP Pulse Ox 07/05/18 13:34 37.1 C 70 20 133/83 98 07/05/18 13:15 36.4 C L 65 16 132/79 94 07/05/18 13:05 76 16 114/83 100 07/05/18 12:55 75 16 141/85 H 100 07/05/18 12:45 79 16 136/90 100 07/05/18 12:35 82 16 136/89 100 07/05/18 12:25 87 16 145/96 H 100 07/05/18 12:15 36.5 C 90 16 123/62 96 07/05/18 07:01 37.2 C 69 16 118/77 96 07/04/18 23:09 37.2 C 81 20 116/74 96 07/04/18 15:42 36.9 C 72 17 122/76 94 Pain Intensity Left Flank: Pain Intensity: 8 Notes Mental Status: alert / awake / arousable and participated in evaluation Patient Amnestic to Procedure: Yes Nausea / Vomiting: adequately controlled Pain: adequately controlled Airway Patency, RR, SpO2: stable & adequate BP & HR: stable & adequate Hydration State: stable & adequate Anesthetic Complications: no major complications apparent and Pt Satisfied with anesthetic care
--- NOTE | 2018-07-05 14:57 | Hospitalist Progress Note ---
Date of Service July 05, 2018 Assessment & Plan (1) Left ureteral calculus: - CT with 3 mm obstructing calculus distal left ureter at the mid left sacral iliac joint level which was unable to pass and is S/P cystoscopy with stone extraction on 07/05 - Continue NSS + 20 mEq K at 100 mL/hr today and likely can remove tomorrow - Rocephin 1 g IV daily - no UCx sent from initial sample and now on Abx - UA with blood, protein, and 1+ bacterial however a lot of epithelial cells -- Urology ok with cessation of Abx but will continue until stone removal; may be reasonable to finish a quick course of Abx - Pain control with home Nucynta and Dilaudid PRN; K-pad - Nausea control with Zofran and Compazine - Flomax daily - Urology following - completed stone extraction on 07/05 (2) Diabetes: - T2DM - Hold home oral anti-diabetics and cover with SSI (3) Pulmonary embolism: - Recent diagnosis on June 15, 2018 - Unprovoked but patient reports she gave recent blood to look for hypercoag issues - INR currently 1.4 and will trend given recently being supratherapeutic - Continue Coumadin to 5 mg daily and monitor INR -- Follows with [facility] for lab draws for INR - goes twice a week (4) Mood disorder: - STABLE - Doxazosin 2 mg HS, Topiramate 25 mg HS, Trazodone 50 mg HS, Ambien 10 mg HS - Also on Prozac 10 mg daily and Vraylar which is non-formulary - did add these to the med rec as they were not initially there Subjective Patient seen prior to scope and states pain/nausea remains steady. Her biggest concern is she is having a lot of anxiety about the procedure and is tearful. She did seem to calm down some but just overwhelmed. She verbalizes no other new complaints Constitutional: no fever and no chills Respiratory: no cough and no dyspnea Cardiovascular: no chest pain, no palpitations and no edema Gastrointestinal: + nausea; no abdominal pain, no vomiting, no constipation and no diarrhea/loose stools Genitourinary (Female): + difficulty urinating, + urinary hesitancy, + hematuria and + flank pain (L); no dysuria Psychiatric: + anxiety Physical Exam Vital Signs (Past 24 Hours): Last Vital Signs Temp 37.1 C 07/05/18 13:34 Pulse 97 H 07/05/18 14:42 Resp 18 07/05/18 14:42 BP 138/90 07/05/18 14:42 Pulse Ox 96 07/05/18 14:42 Constitutional: WD/WN, vitals as above Eyes: + anicteric sclerae ENMT: Ears: no hearing impairment Neck: normal visual inspection and trachea midline Respiratory: normal respiratory effort, lungs clear to auscultation Cardiovascular: RRR, no murmur, no edema Gastrointestinal (Abdomen): Inspection/Auscultation: normal bowel sounds Percussion/Palpation: abdomen soft; abdomen nontender Musculoskeletal: Head/Neck/Chest: normocephalic and head atraumatic Extremities: no cyanosis and no clubbing Skin: no rashes, warm and dry Neurologic: moves all extremities Psychiatric: A+Ox3, euthymic affect
[2018-07-05] MEDS: WARFARIN SOD 5 MG TAB PO SCH (15:24)
[2018-07-05] MEDS: PROCHLORPERAZINE 10 MG in SYRINGE 8 ML IV PRN (15:53)
[2018-07-05] MEDS: HYDROmorphone INJ 0.5 MG/0.5 ML SYR IV PRN ×2 (16:33→23:51)
[2018-07-05] MEDS: INSULIN ASPART 100 UNITS/ML 3 ML PEN SC SCH ×2 (17:55→21:18)
[2018-07-05] MEDS ORDERED: HYDROmorphone INJ 1 MG/ML SYRINGE IV ONE (19:44)
[2018-07-05] MEDS ORDERED: ONDANSETRON INJ 2 MG/ML 2 ML VIAL IV ONE (19:44)
[2018-07-05] MEDS ORDERED: MIDAZOLAM HCL 1 MG/ML 2ML VIAL IV ONE (19:44)
[2018-07-05] MEDS ORDERED: PROPOFOL IV EMULSION 10 MG/ML 20 ML VIAL IV ONE (19:44)
[2018-07-05] MEDS ORDERED: LORazepam 2 MG/4 ML VIAL IV ONE (19:44)
[2018-07-05] MEDS ORDERED: fentaNYL citrate 100 MCG/2 ML VIAL IV ONE (19:44)
[2018-07-05] MEDS ORDERED: DEXAMETHASONE SOD INJ 4 MG/ML VIAL IV ONE (19:44)
[2018-07-05] MEDS ORDERED: LIDOCAINE HCL 2% 2 ML VIAL/AMP(20MG/ML) INFIL ONE (19:44)
[2018-07-05] MEDS ORDERED: SUCCINYLCHOLINE CHLORIDE 20 MG/ML 10 ML VIAL IV ONE (19:44)
[2018-07-05] MEDS: ACETAMINOPHEN 325 MG TAB PO SCH (19:55)
[2018-07-05] MEDS: KETOROLAC TROMETHAMINE 15 MG/ML VIAL IV PRN (19:55)
[2018-07-05] MEDS: THIAMINE HCL 50 MG TABLET PO SCH (20:00)
[2018-07-05] MEDS: DOXAZosin MESYLATE TAB 2 MG TAB PO SCH (20:00)
[2018-07-05] MEDS: TRAZODONE HCL 50 MG TAB PO SCH (20:00)
[2018-07-05] MEDS: TOPIRAMATE 25 MG TAB PO SCH (20:01)
--- NOTE | 2018-07-05 20:22 | Operative Report ---
DATE OF OPERATION: 07/05/2018 SURGEON: Lavell Agee MD. ELECTRIC DRILL OPERATOR: None. PREOPERATIVE DIAGNOSIS: Left ureteral calculus. POSTOPERATIVE DIAGNOSIS: Left ureteral calculus. PROCEDURES: Cystoscopy, left retrograde pyelogram, left ureteroscopy, stone extraction. ANESTHESIA: General endotracheal. COMPLICATIONS: None. SPECIMENS: Ureteral stone. DRAINS: None. ESTIMATED BLOOD LOSS: Minimal. CONDITION: Stable. INDICATIONS: Ms. Henning is a 38-year-old female recently found to have pulmonary emboli. CT scan also showed a left-sided ureteral calculus. She had pain and nausea. The stone was not passing on its own. Now presents for surgery due to persistent symptoms. DESCRIPTION OF PROCEDURE: The patient was brought to the operative suite and positively identified, placed on the table in supine position. After induction of general anesthesia, placed in dorsal lithotomy position with the genitalia prepped and draped in a sterile fashion. Preoperative antibiotics were administered and a time out was performed. A rigid cystoscope was passed through the urethra and bladder. The urethra was normal. The bladder was unremarkable. I turned my attention to the left ureteral orifice. This was intubated with an open-ended catheter, and retrograde pyelogram was performed. It was difficult to see any filling defect, but there was hydronephrosis. A Sensor wire was passed up to the level of the renal pelvis and a rigid ureteroscope was passed alongside this wire. In the mid ureter, the stone was encountered. It appeared somewhat impacted and did not appear to be passing on its own. It was a jagged yellow stone measuring approximately 5 mm. Using a 0 tip basket, the stone was extracted and sent for analysis. I passed the scope up the second time. The ureter was patent. It did not appear to require a stent. Final retrograde pyelogram was unremarkable. The bladder was then drained. The patient tolerated the procedure well. Sponge and needle counts were correct. Taken to PACU in stable condition. I attest to the content of the Intraoperative Record and any orders documented therein. Any exception s are noted below.
[2018-07-05] MEDS: TAPENTADOL HCL ER 50 MG TABCR PO SCH (20:59)
[2018-07-05] MEDS: ZOLPIDEM TARTRATE 10 MG TAB PO SCH (20:59)
[2018-07-05] MEDS ORDERED: FLUOXETINE HCL 10 MG CAP PO SCH (21:00)
[2018-07-06] MEDS: cefTRIAXone SODIUM 1,000 MG in DEXTROSE 5% 50 ML IV SCH (01:55)
[2018-07-06] MEDS: ACETAMINOPHEN 325 MG TAB PO SCH ×4 (01:55→20:09)
[2018-07-06] MEDS: NSS + 20MEQ KCL 20 MEQ/1,000 ML BAG IV SCH ×2 (06:03→19:14)
[2018-07-06] MEDS: ONDANSETRON INJ 2 MG/ML 2 ML VIAL IV PRN ×2 (08:11→18:14)
[2018-07-06] MEDS: HYDROmorphone INJ 0.5 MG/0.5 ML SYR IV PRN ×2 (08:11→16:20)
[2018-07-06] MEDS: TAPENTADOL HCL 50 MG TAB PO SCH ×3 (09:40→21:48)
[2018-07-06] MEDS: TAMSULOSIN HCL 0.4 MG CAP PO SCH (09:41)
[2018-07-06] MEDS: PANTOprazole 40 MG TAB PO SCH (09:41)
[2018-07-06] MEDS: INSULIN ASPART 100 UNITS/ML 3 ML PEN SC SCH ×4 (09:44→21:32)
[2018-07-06] MEDS ORDERED: ENOXAPARIN 1 MG/KG SQ SCH (10:15)
[2018-07-06] MEDS: PROCHLORPERAZINE 10 MG in SYRINGE 8 ML IV PRN (10:43)
[2018-07-06] MEDS: CYCLOBENZAPRINE HCL 10 MG TAB PO SCH ×2 (10:43→20:11)
[2018-07-06 11:01] LABS: INR 1.7 (0.9-1.1); Prothrombin Time 16.5 Seconds (9.0-12.0)
[2018-07-06] MEDS: KETOROLAC TROMETHAMINE 15 MG/ML VIAL IV PRN (11:01)
--- NOTE | 2018-07-06 13:07 | Hospitalist Progress Note ---
Date of Service July 06, 2018 Assessment & Plan (1) Left ureteral calculus: - CT with 3 mm obstructing calculus distal left ureter at the mid left sacral iliac joint level which was unable to pass and is S/P cystoscopy with stone extraction on 07/05 Left flank pain now resolved -DC IV fluids No evidence of infection-DC antibiotics -Discontinued Flomax that she is already on Cardura - Urology following - completed stone extraction on 07/05-no stent was placed (2) Diabetes: - [id number], last hemoglobin A1c here is 9.6% - Holding home oral anti-diabetics and exenatide and cover with SSI (3) Pulmonary embolism: - Recent diagnosis on June 15, 2018 with bilateral multiple PEs with evidence of right-sided strain on CT-she was transferred out to [facility] in [place] where they treated her with anticoagulation and no catheter directed thrombectomy - Unprovoked but patient reports she gave recent blood to look for hypercoag issues - INR currently remains therapeutic for several days-start bridging Lovenox 1 mg/kg SC every 12 -Continue Coumadin -Follow INR in the morning (4) Mood disorder: With chronic suicidal ideation-recently exacerbated by hospitalization -Continue doxazosin 2 mg HS, Topiramate 25 mg HS, Trazodone 50 mg HS, Ambien 10 mg HS, Prozac 10 mg -Patient reports her Vistaril was not on the home med rec and she takes 25 mg as needed during the day and 25 mg at bedtime -We do not have her regular Vraylar from home here and she has no ability to bring it in to take it here -Consult psychiatry for suicidal ideations (5) Bipolar disorder current episode depressed: As above (6) Abdominal pain: With new right lower quadrant pain today with recurrent nausea. She did have bilateral nephrolithiasis on CT scan Reviewed with urology on the phone-urology thinks that the stones on the right are so tiny that if they passed they would not cause obstruction KUB does not show stone on the right although could be small -Continue IV fluids, antiemetics, pain control-patient requests increase in frequency of Dilaudid (7) Nausea: Add on Reglan to Compazine and Zofran (8) Chronic pain: Stable -Continue home Nucynta ER and immediate release (9) DVT prophylaxis: Bridging Lovenox, Coumadin Disposition-remain here overnight for pain control nausea control Subjective Patient started having right lower quadrant abdominal pain since yesterday that is 10 out of 10 at its worst and improved to 5 out of 10 currently with receiving IV Dilaudid and Toradol. She is also having a lot of nausea but no vomiting. Some mild hematuria. Afebrile. I discussed the case with Dr. Acuña. Patient also reporting an exacerbation of her chronic suicidal ideations, but denies that she has a plan to carry on with it. She reports numerous suicidal attempts in the past. Physical Exam Vital Signs (Past 24 Hours): Last Vital Signs Temp 37.3 C 07/06/18 11:37 Pulse 68 07/06/18 11:37 Resp 18 07/06/18 11:37 BP 102/66 07/06/18 11:37 Pulse Ox 95 07/06/18 11:37 Constitutional: WD/WN, vitals as above Eyes: PERRL, conjunctivae normal, anicteric sclerae ENMT: external ear and nose normal, oropharynx normal Neck: trachea midline, no thyromegaly Respiratory: normal respiratory effort, lungs clear to auscultation Cardiovascular: RRR, no murmur, no edema Gastrointestinal (Abdomen): Inspection/Auscultation: abdomen normal to inspection and normal bowel sounds Percussion/Palpation: + abdomen tender (In right lower quadrant and inguinal region without guarding or rebound) Musculoskeletal: Extremities: extremities normal to inspection; no cyanosis and no clubbing Skin: no rashes, warm and dry Neurologic: moves all extremities and awake; no focal motor deficits Psychiatric: Orientation: alert and oriented x 3 Mood: + depressed mood Suicidal Thoughts: denies suicidal plan; + reports suicidal thoughts Results & Data Laboratory Results 07/07/18 07/07/18 07/07/18 Range/Units 07:20 07:20 07:20 WBC Pending RBC Pending Hgb Pending Hct Pending MCV Pending MCH Pending MCHC Pending Plt Count Pending PT Pending (9.0-12.0) Seconds INR Pending (0.9-1.1) APTT Pending PTT Ratio Pending Sodium Pending Potassium Pending Chloride Pending Carbon Dioxide Pending Anion Gap Pending BUN Pending Creatinine Pending Est Cr Clr Drug Dosing Pending Est GFR ( Amer) Pending Est GFR (Non-Af Amer) Pending BUN/Creatinine Ratio Pending Glucose Pending POC Glucose (70-99) Calcium Pending 07/06/18 07/06/18 07/06/18 Range/Units 20:34 16:56 12:27 WBC RBC Hgb Hct MCV MCH MCHC Plt Count PT (9.0-12.0) Seconds INR (0.9-1.1) APTT PTT Ratio Sodium Potassium Chloride Carbon Dioxide Anion Gap BUN Creatinine Est Cr Clr Drug Dosing Est GFR ( Amer) Est GFR (Non-Af Amer) BUN/Creatinine Ratio Glucose POC Glucose 160 H 129 H 186 H (70-99) Calcium 07/06/18 07/06/18 Range/Units 10:26 08:08 WBC RBC Hgb Hct MCV MCH MCHC Plt Count PT 16.5 H (9.0-12.0) Seconds INR 1.7 H (0.9-1.1) APTT PTT Ratio Sodium Potassium Chloride Carbon Dioxide Anion Gap BUN Creatinine Est Cr Clr Drug Dosing Est GFR ( Amer) Est GFR (Non-Af Amer) BUN/Creatinine Ratio Glucose POC Glucose 191 H (70-99) Calcium Diagnostic Findings KUB: KUB HISTORY: Acute right lower quadrant abdominal pain. Concern for possible nephrolithiasis RLQ pain,suspect stone COMPARISON: KUB and CT abdomen and pelvis 07/01/2018. FINDINGS: The bowel gas pattern is non-obstructive. There is no organomegaly. Renal shadows are partially obscured by bowel gas. Punctate calculi of the inferior pole left kidney redemonstrated. Previous noted right nephrolithiasis and left ureteral calculus not definitively seen. Surgical clips project over the lower abdomen. No pneumoperitoneum or pneumatosis. No fracture. IMPRESSION: 1. Previously noted left ureteral calculus not definitively seen. 2. Punctate calculi of the inferior pole left kidney redemonstrated.
[2018-07-06] MEDS ORDERED: HYDROmorphone INJ 0.5 MG/0.5 ML SYR ONE (13:10)
[2018-07-06] MEDS: ENOXAPARIN 150 MG/ML SYR SQ SCH (13:12)
--- NOTE | 2018-07-06 13:49 | XRay Report ---
KUB HISTORY: Acute right lower quadrant abdominal pain. Concern for possible nephrolithiasis RLQ pain,rose spect stone COMPARISON: KUB and CT abdomen and pelvis 07/01/2018. FINDINGS: The bowel gas pattern is non-obstructive. There is no organomegaly. Renal shadows are part ially obscured by bowel gas. Punctate calculi of the inferior pole left kidney redemonstrated. Previo us noted right nephrolithiasis and left ureteral calculus not definitively seen. Surgical clips proje ct over the lower abdomen. No pneumoperitoneum or pneumatosis. No fracture. IMPRESSION: 1. Previously noted left ureteral calculus not definitively seen. 2. Punctate calculi of the inferior pole left kidney redemonstrated. Electronically signed by: Rigoberto Dick M.D. 07/06/2018 1:48 PM
[2018-07-06] MEDS: METOCLOPRAMIDE HCL INJ 5 MG/ML 2 ML VIAL IV PRN ×2 (13:55→21:24)
--- NOTE | 2018-07-06 14:19 | Psychiatric Consultation ---
Date of Consultation July 06, 2018 Impression / Recommendations Impression 38-year-old woman with known bipolar disorder, admitted medically due to renal calculi. We are consulted to evaluate suicidal statements. Although the suicidal thoughts were stronger yesterday, today they have reduced back to baseline, thoughts that she says she has every day of her life. She does not feel at risk of hurting herself but remains depressed over her medical condition. In terms of medications, she was recently taken off Clozaril due to concerns for its contribution to her recent onset pulmonary emboli and no medication was ordered in its place. She was only recently started on Clozaril and dosage had only gotten to 275 mg daily. Although that she thought that it was somewhat helpful she does not feel like she had a robust response to it in addition, she has been on Vraylar 4.5 mg daily and she is not getting that here as it is nonformulary and she has no one to bring it in for her. I think that missing multiple medications is contributing to some mood instability with days of worsening suicidal thoughts. I would not restart Clozaril at this point since she did not have a robust response but could be restarted after she is stable on her warfarin and her INR has been stable. There is no causal relationship between Clozaril and PEs. I will take the liberty of increasing her antidepressant to 20 mg daily to target her mood, but will need to observe for any activation given her bipolar disorder. That having been said if she is to remain in the hospital for a longer period of time it would benefit her to have access to her Vraylar and perhaps her rehabilitation caseworker could go to her home and bring in her bottle. (1) Bipolar disorder current episode depressed: 07/06 - Not acutely suicidal today and at baseline has chronic SI. Therefore I do not think that she meets criteria for inpatient treatment at this time - I would like to have her evaluated at the time she is medically cleared to be sure there are no acute needs to address - If she remains in the hospital, would attempt to have someone get her Vraylar from her apt. - REcommend continuing off of Clozaril, but could be considered in the future once INR stable - Will obtain OP records from current provider. - Increase Prozac to 20 mg being cautious she doesn't get activated. Present on Admission?: Yes Inventory Assets Strengths: Good support from OP providers Needs: Continued healthy coping strategies Risk Factors Assessment Male: No : Yes Do You Have Access To A Gun?: No Health Problems: Yes Mental Health Diagnoses: Yes Substance Use Disorders: No Family History of Suicide: No Previous Psychiatric Hospitalization: Yes Smoker: No Protective Factors Assessment : No Responsible for Young Children: No Employed: Yes ([employer]) Stable Relationships: Yes Good Rapport with Provider: Yes CPT Code 90989 Psych History Identifying Data 38-year-old woman admitted medically with renal calculi. We are consulted to evaluate suicidal ideation. Information is gathered from the patient and considered to be reliable. Chief Complaint "I have suicidal thoughts every day of my life.". History of Present Illness The patient is a 38-year-old woman known to us from multiple hospitalizations for bipolar disorder. She is currently in treatment with Dr. Childers at the [facility] psych [facility]. She was started on Clozaril several months ago with most recent dosing being 275 mg. She felt that this was helpful but not robustly so. Unfortunately she developed bilateral PEs several weeks ago and was hospitalized at [facility] in [place]. Due to the concerns about blood clots on Clozaril, this was discontinued and no other medication was substituted. Here in our hospital, she says that her mood has been depressed due to all of her medical conditions. Today she is complaining of pain on the right side which is the opposite side to which she had recent renal calculi. She says that she has suicidal thoughts but that these are chronic and she does not feel at risk of acting on them. Yesterday, her mood was not is good and she admits that she had thought about overdosing in a moment when she was overwhelmed. She reports that prior to hospitalization, her sleep was poor, but she has been sleeping well here in our hospital. She reports low interest in things that are pleasurable to her. She has low energy. She describes that "I am okay" today and can natalia ge with her chronic baseline suicidality. She attends therapy twice per week and sees Dr. Sam once per month. She is not sure how long she will be in the hospital due to the onset of right-sided abdominal pain. She does endorse anxiety with occasional panic attacks. She usually takes Vistaril during times of high anxiety. She endorses hallucinations saying that she occasionally sees a [place] her mother or spiders and has a history of command hallucinations several years ago. She denies any symptoms of OCD, PTSD. She denies any recent episodes of sai that would include euphoria, decreased need for sleep or elevated energy. Past Psychiatric History Current Psychiatric Diagnosis: Bipolar disorder Outpatient Services: Dr. Childers at [facility] and therapist Lavell Previous Psych Admissions: [facility] Do You Have Access To A Gun?: No Past Medication Trials: Zoloft Risperdal Libby Depakote Topamax Seroquel Lamictal Allergies Allergy/AdvReac Type Severity Reaction Status Date / Time morphine Allergy Severe "HEART Verified 07/01/18 20:36 STOPS BEATING" black pepper Allergy Mild Swelling Verified 07/01/18 20:36 of Lip/Tongue/Throat ketorolac Allergy Mild ITCHY, BUT Verified 07/01/18 20:36 CAN STILL TAKE IT mushroom Allergy Mild Unknown Verified 07/01/18 20:36 Sulfa (Sulfonamide Allergy Mild Rash Verified 07/01/18 20:36 Antibiotics) terfenadine Allergy Mild RASH Verified 07/01/18 20:36 aspartame Allergy Unknown HIVES Unverified 07/01/18 20:36 chlorpheniramine Allergy Unknown "ANTIHISTAMINE Verified 07/01/18 20:36 ALLERGY" - NO ALLERGY TO CLARITIN PER PT diphenhydramine Allergy Unknown "ANTIHISTAMINE Verified 07/01/18 20:36 ALLERGY"- NO ALLERGY TO CLARITIN PER PT fexofenadine Allergy Unknown Unknown Verified 07/01/18 20:36 shellfish derived AdvReac Severe HIVES Unverified 06/30/18 16:50 Home Medications Home Medications Medication Instructions Recorded Confirmed Type cyclobenzaprine 10 mg PO BID 12/29/17 07/01/18 History doxazosin 2 mg PO HS 12/29/17 07/01/18 History exenatide microspheres 2 mg SUBCUT WK 12/29/17 07/01/18 History glimepiride 4 mg PO BID 12/29/17 07/01/18 History metformin 750 mg PO BID 12/29/17 07/01/18 History pantoprazole 40 mg PO QAM 12/29/17 07/01/18 History ranitidine HCl [Zantac] 600 mg PO HS 12/29/17 07/01/18 History tapentadol [Nucynta ER] 100 mg PO HS 12/29/17 07/01/18 History tapentadol [Nucynta] 100 mg PO TID 12/29/17 07/01/18 History topiramate 25 mg PO HS 12/29/17 07/01/18 History trazodone 50 mg PO HS 12/29/17 07/01/18 History zolpidem [Ambien] 10 mg PO HS 12/29/17 07/01/18 History cholecalciferol (vitamin D3) 4,000 units PO HS 02/09/18 07/01/18 History [Vitamin D3] fluticasone propionate [Flonase 1 spray INTRANASAL DAILY PRN 02/09/18 07/01/18 History Allergy Relief] hydroxyzine pamoate [Vistaril] 25 mg PO DAILY PRN 02/09/18 07/01/18 History hydroxyzine pamoate [Vistaril] 25 mg PO HS 02/09/18 07/01/18 History insulin aspart U-100 [Novolog 1 dose SUBCUT AC PRN 02/09/18 07/01/18 History Flexpen U-100 Insulin] sumatriptan [Imitrex] 20 mg INTRANASAL DAILY PRN 02/09/18 07/01/18 History thiamine HCl (vitamin B1) [Vitamin 50 mg PO HS 02/09/18 07/01/18 History B-1] valacyclovir [Valtrex] 1 g PO BID PRN 02/09/18 07/01/18 History fluconazole 150 mg PO HS 06/15/18 07/01/18 History oxycodone 5 mg PO Q6H PRN #14 tab 06/30/18 07/01/18 Rx warfarin 2.5 - 5 mg PO UD 06/30/18 07/01/18 History tamsulosin [Flomax] 0.4 mg PO DAILY 07/01/18 07/01/18 History cariprazine [Vraylar] 4.5 mg PO DAILY 07/05/18 07/05/18 History fluoxetine 10 mg PO HS 07/05/18 07/05/18 History Family History Adopted but knows that bio mom has bipolar disorder, and maternal grandfather has depressed Substance Abuse History Denies use of drugs or alcohol Personal History Living Arrangements: APartment Highest Grade Completed: College 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 Marital Status: Single Beliefs That Will Affect Care: None History of Legal Problems: None Patient History Medical History Diabetes (Chronic) Polysubstance overdose (Resolved) Pyelonephritis (Resolved) Calculus, ureter (Resolved 02/12/14) Hydronephrosis (Acute) Mood disorder (Chronic) Renal colic (Chronic) Right ureteral stone (Resolved) Urinary tract infection (Resolved) Pulmonary emboli History of wisdom tooth extraction Surgical History History of appendectomy History of cystoscopy History of uvulopalatopharyngoplasty Family History Other No pertinent family history Social History Preferred Language: Syriac Communication Ability: Effective Beliefs That Will Affect Care: None Current Living Situation: Other Current Living Situation Comment: Roommate Feels Safe at Home: Yes Smoking Status: Never smoker Hx Alcohol Use: No Hx Substance Use: No Physical Exam Psychiatric Orientation: alert and cooperative Apperance: appropriately dressed and appropriately groomed Eye Contact: good eye contact Motor Behavior: steady gait and station and no abnormal motor movements Speech: normal rate/rhythm/volume of speech Affect: + flat affect Mood: + depressed mood Thought Process: goal directed thought process Thought Content: reality based without delusions Suicidal Thoughts: denies suicidal thoughts Vital Signs (Past 24 Hours) Last Vital Signs Temp 37.3 C 07/06/18 11:37 Pulse 68 07/06/18 11:37 Resp 18 07/06/18 11:37 BP 102/66 07/06/18 11:37 Pulse Ox 95 07/06/18 11:37 Review of Systems All systems reviewed & are unremarkable except as noted in HPI & below Gastrointestinal: + abdominal pain (rt lower quadrant) Results & Data Medications Administered Acetaminophen (Tylenol) 650 mg PO Q6H MICHELLE Stop: 08/04/18 19:14 Last Admin: 07/06/18 13:55 Dose: 650 mg Documented by: [id number] Admin: 07/06/18 09:40 Dose: 650 mg Documented by: [id number] Admin: 07/06/18 01:55 Dose: 650 mg Documented by: [id number] Admin: 07/05/18 19:55 Dose: 650 mg Documented by: [id number] Cyclobenzaprine HCl (Flexeril) 10 mg PO BID MICHELLE Stop: 08/05/18 08:59 Last Admin: 07/06/18 10:43 Dose: 10 mg Documented by: [id number] Doxazosin Mesylate (Cardura) 2 mg PO [facility] Stop: 08/01/18 20:59 Last Admin: 07/05/18 20:00 Dose: 2 mg Documented by: [id number] Admin: 07/04/18 20:42 Dose: 2 mg Documented by: [id number] Admin: 07/03/18 21:01 Dose: 2 mg Documented by: [id number] Admin: 07/02/18 20:59 Dose: 2 mg Documented by: [id number] Enoxaparin Sodium (Lovenox) 141 mg SQ Q12H MICHELLE Stop: 08/05/18 12:59 Last Admin: 07/06/18 13:12 Dose: 141 mg Documented by: [id number] Fluoxetine HCl (Prozac) 10 mg PO [facility] Stop: 08/04/18 20:59 Last Admin: 07/05/18 20:01 Dose: 10 mg Documented by: [id number] Hydroxyzine HCl (Vistaril) 25 mg PO DAILY PRN PRN Reason: Anxiety Stop: 08/04/18 09:47 Last Admin: 07/06/18 10:43 Dose: 25 mg Documented by: [id number] Hydroxyzine HCl (Vistaril) 25 mg PO [facility] Stop: 08/04/18 20:59 Last Admin: 07/05/18 20:00 Dose: 25 mg Documented by: [id number] Prochlorperazine 10 mg/ (Syringe) 10 mls @ 5 mls/min IV Q6H PRN PRN Reason: Nausea And Vomiting Stop: 07/31/18 22:17 Last Admin: 07/06/18 10:43 Dose: 5 mls/min Documented by: [id number] Admin: 07/05/18 15:53 Dose: 5 mls/min Documented by: [id number] Admin: 07/04/18 12:51 Dose: 5 mls/min Documented by: [id number] Admin: 07/03/18 21:20 Dose: 5 mls/min Documented by: [id number] Admin: 07/03/18 06:22 Dose: 5 mls/min Documented by: [id number] Admin: 07/02/18 12:36 Dose: 5 mls/min Documented by: [id number] Admin: 07/01/18 22:34 Dose: 5 mls/min Documented by: [id number] Potassium Chloride/Sodium Chloride (Normal Saline W/20 Meq Kcl) 20 meq in 1,000 mls @ 100 mls/hr IV .Q10H MICHELLE Stop: 08/01/18 00:59 Last Admin: 07/06/18 06:03 Dose: 100 mls/hr Documented by: [id number] Infusion: 07/06/18 04:37 Dose: 100 mls/hr Documented by: [id number] Infusion: 07/05/18 22:07 Dose: 100 mls/hr Documented by: [id number] Admin: 07/05/18 18:37 Dose: 100 mls/hr Documented by: [id number] Infusion: 07/05/18 17:57 Dose: 100 mls/hr Documented by: [id number] Admin: 07/05/18 07:57 Dose: 100 mls/hr Documented by: [id number] Infusion: 07/05/18 07:57 Dose: 100 mls/hr Documented by: [id number] Admin: 07/04/18 22:08 Dose: 100 mls/hr Documented by: [id number] Infusion: 07/04/18 22:08 Dose: 100 mls/hr Documented by: [id number] Infusion: 07/04/18 13:38 Dose: 100 mls/hr Documented by: [id number] Admin: 07/04/18 12:50 Dose: 100 mls/hr Documented by: [id number] Infusion: 07/04/18 12:50 Dose: 100 mls/hr Documented by: [id number] Infusion: 07/04/18 06:37 Dose: 100 mls/hr Documented by: [id number] Infusion: 07/04/18 03:05 Dose: 100 mls/hr Documented by: [id number] Infusion: 07/04/18 02:29 Dose: 0 mls/hr Documented by: [id number] Admin: 07/04/18 02:29 Dose: 100 mls/hr Documented by: [id number] Infusion: 07/04/18 02:07 Dose: 100 mls/hr Documented by: [id number] Admin: 07/03/18 16:07 Dose: 100 mls/hr Documented by: [id number] Infusion: 07/03/18 16:07 Dose: 100 mls/hr Documented by: [id number] Infusion: 07/03/18 14:04 Dose: 100 mls/hr Documented by: [id number] Admin: 07/03/18 06:21 Dose: 100 mls/hr Documented by: [id number] Infusion: 07/03/18 06:21 Dose: 100 mls/hr Documented by: [id number] Admin: 07/02/18 21:00 Dose: 100 mls/hr Documented by: [id number] Infusion: 07/02/18 21:00 Dose: 100 mls/hr Documented by: [id number] Admin: 07/02/18 11:00 Dose: 100 mls/hr Documented by: [id number] Infusion: 07/02/18 11:00 Dose: 100 mls/hr Documented by: [id number] Admin: 07/02/18 01:18 Dose: 100 mls/hr Documented by: [id number] Insulin Aspart (Novolog Flexpen) 0 units SC ACHS MICHELLE Stop: 08/04/18 05:59 Last Admin: 07/06/18 13:04 Dose: 4 units Documented by: [id number] Cosigned by: [id number] Admin: 07/06/18 09:44 Dose: 8 units Documented by: [id number] Cosigned by: [id number] Admin: 07/05/18 21:18 Dose: 4 units Documented by: [id number] Cosigned by: [id number] Admin: 07/05/18 17:55 Dose: 8 units Documented by: [id number] Cosigned by: [id number] Metoclopramide HCl (Reglan) 5 mg IV Q6H PRN PRN Reason: Nausea Stop: 08/05/18 13:01 Last Admin: 07/06/18 13:55 Dose: 5 mg Documented by: [id number] Miscellaneous (Order Awaiting Action) 1 ea N/A QS MICHELLE Stop: 08/01/18 07:59 Last Admin: 07/06/18 09:39 Dose: Not Given Documented by: [id number] Admin: 07/05/18 23:16 Dose: Not Given Documented by: [id number] Admin: 07/05/18 15:29 Dose: Not Given Documented by: [id number] Admin: 07/05/18 07:57 Dose: Not Given Documented by: [id number] Admin: 07/04/18 21:49 Dose: Not Given Documented by: [id number] Admin: 07/04/18 16:08 Dose: Not Given Documented by: [id number] Admin: 07/04/18 09:13 Dose: Not Given Documented by: [id number] Admin: 07/04/18 01:37 Dose: Not Given Documented by: [id number] Admin: 07/03/18 15:42 Dose: Not Given Documented by: [id number] Admin: 07/03/18 08:24 Dose: Not Given Documented by: [id number] Admin: 07/03/18 00:43 Dose: Not Given Documented by: [id number] Admin: 07/02/18 19:19 Dose: Not Given Documented by: [id number] Admin: 07/02/18 08:14 Dose: Not Given Documented by: [id number] Ondansetron HCl (Zofran) 4 mg IV Q6H PRN PRN Reason: Nausea Stop: 08/01/18 00:58 Last Admin: 07/06/18 08:11 Dose: 4 mg Documented by: [id number] Admin: 07/05/18 23:51 Dose: 4 mg Documented by: [id number] Admin: 07/05/18 18:37 Dose: 4 mg Documented by: [id number] Admin: 07/05/18 07:57 Dose: 4 mg Documented by: [id number] Admin: 07/04/18 22:52 Dose: 4 mg Documented by: [id number] Admin: 07/04/18 10:33 Dose: 4 mg Documented by: [id number] Admin: 07/04/18 04:12 Dose: 4 mg Documented by: [id number] Admin: 07/03/18 19:31 Dose: 4 mg Documented by: [id number] Admin: 07/03/18 10:33 Dose: 4 mg Documented by: [id number] Admin: 07/02/18 20:43 Dose: 4 mg Documented by: [id number] Admin: 07/02/18 11:00 Dose: 4 mg Documented by: [id number] Pantoprazole Sodium (Protonix) 40 mg PO QAM MICHELLE Stop: 08/01/18 08:59 Last Admin: 07/06/18 09:41 Dose: 40 mg Documented by: [id number] Admin: 07/05/18 09:49 Dose: Not Given Documented by: [id number] Admin: 07/04/18 09:13 Dose: 40 mg Documented by: [id number] Admin: 07/03/18 08:30 Dose: 40 mg Documented by: [id number] Admin: 07/02/18 09:19 Dose: 40 mg Documented by: [id number] Ranitidine HCl (Zantac) 300 mg PO HS MICHELLE Stop: 08/01/18 20:59 Last Admin: 07/05/18 20:00 Dose: 300 mg Documented by: [id number] Admin: 07/04/18 20:44 Dose: 300 mg Documented by: [id number] Admin: 07/03/18 21:02 Dose: 300 mg Documented by: [id number] Admin: 07/02/18 20:59 Dose: 300 mg Documented by: [id number] Tapentadol (Nucynta) 100 mg PO TID MICHELLE Stop: 07/16/18 08:59 Last Admin: 07/06/18 13:55 Dose: 100 mg Documented by: [id number] Admin: 07/06/18 09:40 Dose: 100 mg Documented by: [id number] Admin: 07/05/18 20:59 Dose: 100 mg Documented by: [id number] Admin: 07/05/18 13:58 Dose: 100 mg Documented by: [id number] Admin: 07/05/18 09:49 Dose: Not Given Documented by: [id number] Admin: 07/04/18 20:42 Dose: 100 mg Documented by: [id number] Admin: 07/04/18 13:36 Dose: 100 mg Documented by: [id number] Admin: 07/04/18 09:13 Dose: 100 mg Documented by: [id number] Admin: 07/03/18 21:01 Dose: 100 mg Documented by: [id number] Admin: 07/03/18 14:59 Dose: 100 mg Documented by: [id number] Admin: 07/03/18 08:30 Dose: 100 mg Documented by: [id number] Admin: 07/02/18 21:00 Dose: 100 mg Documented by: [id number] Admin: 07/02/18 14:48 Dose: 100 mg Documented by: [id number] Admin: 07/02/18 09:19 Dose: 100 mg Documented by: [id number] Tapentadol (Nucynta Er) 100 mg PO MICHELLE Stop: 07/16/18 20:59 Last Admin: 07/05/18 20:59 Dose: 100 mg Documented by: [id number] Admin: 07/04/18 20:42 Dose: 100 mg Documented by: [id number] Admin: 07/03/18 21:02 Dose: 100 mg Documented by: [id number] Admin: 07/02/18 20:59 Dose: 100 mg Documented by: [id number] Thiamine HCl (Vitamin B-1) 50 mg PO [facility] Stop: 08/01/18 20:59 Last Admin: 07/05/18 20:00 Dose: 50 mg Documented by: [id number] Admin: 07/04/18 20:44 Dose: 50 mg Documented by: [id number] Admin: 07/03/18 21:02 Dose: 50 mg Documented by: [id number] Admin: 07/02/18 20:59 Dose: 50 mg Documented by: [id number] Topiramate (Topamax) 25 mg PO [facility] Stop: 08/01/18 20:59 Last Admin: 07/05/18 20:01 Dose: 25 mg Documented by: [id number] Admin: 07/04/18 20:44 Dose: 25 mg Documented by: [id number] Admin: 07/03/18 21:02 Dose: 25 mg Documented by: [id number] Admin: 07/02/18 20:59 Dose: 25 mg Documented by: [id number] Trazodone HCl (Desyrel) 50 mg PO MICHELLE Stop: 08/01/18 20:59 Last Admin: 07/05/18 20:00 Dose: 50 mg Documented by: [id number] Admin: 07/04/18 20:43 Dose: 50 mg Documented by: [id number] Admin: 07/03/18 21:01 Dose: 50 mg Documented by: [id number] Admin: 07/02/18 20:22 Dose: 50 mg Documented by: [id number] Warfarin Sodium (Coumadin) 5 mg PO DAILY@1600 MICHELLE Stop: 08/03/18 15:59 Last Admin: 07/05/18 15:24 Dose: 5 mg Documented by: [id number] Admin: 07/04/18 16:07 Dose: 5 mg Documented by: [id number] Zolpidem Tartrate (Ambien) 10 mg PO MICHELLE Stop: 08/01/18 20:59 Last Admin: 07/05/18 20:59 Dose: 10 mg Documented by: [id number] Admin: 07/04/18 20:42 Dose: 10 mg Documented by: [id number] Admin: 07/03/18 21:00 Dose: 10 mg Documented by: [id number] Admin: 07/02/18 20:21 Dose: 10 mg Documented by: [id number]
[2018-07-06] MEDS: WARFARIN SOD 5 MG TAB PO SCH (16:01)
--- NOTE | 2018-07-06 17:08 | Urology Progress Note ---
Date of Service July 06, 2018 Assessment & Plan (1) Left ureteral calculus: POD#1 s/p left ureteroscopy basket stone extraction. No left sided pain today. new right sided pain. I looked at admission ct scan and the only right sided stone is small and thin and tucked in a corner calyx. It looks unlikely to leave the kidney and if it does seems like it would pass. I do not suggest new ct scan. Will see how she feels tomorrow. KUB was not helpful. Can continue coumadin uninterrupted. no longer needs to strain urine Present on Admission?: Yes Subjective Patient is complaining of lowered urine output today. she complains of right lower quadrant pain. She complains of nausea. She has been walking the halls at least a dozen times so far today. he had a normal BM yesterday. She does not have hematuria or left flank pain. ROS- no chest pain, no calf pain, no constipation, no chills, + nausea, no emesis Physical Exam Vital Signs (Past 24 Hours): Last Vital Signs Temp 36.9 C 07/06/18 15:27 Pulse 68 07/06/18 15:27 Resp 20 07/06/18 15:27 BP 115/73 07/06/18 15:27 Pulse Ox 96 07/06/18 15:27 Constitutional: well developed, + morbidly obese and comfortable; no acute distress Psychiatric: Orientation: alert and oriented x 3 Speech: normal rate/rhythm/volume of speech Affect: + flat affect she speaks fluidly in complete sentences. Does not seem to be in pain. No calf pain, no leg skin lesions, trace pretibial edema, eyes- no scleral icterus, pupils equal and react to light
[2018-07-06] MEDS: DOXAZosin MESYLATE TAB 2 MG TAB PO SCH (20:10)
[2018-07-06] MEDS: TRAZODONE HCL 50 MG TAB PO SCH (20:11)
[2018-07-06] MEDS: TOPIRAMATE 25 MG TAB PO SCH (20:12)
[2018-07-06] MEDS: THIAMINE HCL 50 MG TABLET PO SCH (20:12)
[2018-07-06] MEDS ORDERED: FLUOXETINE HCL 20 MG CAP PO SCH (21:00)
[2018-07-06] MEDS: TAPENTADOL HCL ER 50 MG TABCR PO SCH (21:49)
[2018-07-06] MEDS: ZOLPIDEM TARTRATE 10 MG TAB PO SCH (21:49)
[2018-07-07] MEDS: ACETAMINOPHEN 325 MG TAB PO SCH ×3 (03:07→13:44)
[2018-07-07] MEDS: NSS + 20MEQ KCL 20 MEQ/1,000 ML BAG IV SCH ×2 (03:08→12:38)
[2018-07-07] MEDS: ONDANSETRON INJ 2 MG/ML 2 ML VIAL IV PRN ×2 (03:15→12:38)
[2018-07-07] MEDS: ENOXAPARIN 150 MG/ML SYR SQ SCH ×2 (05:18→18:51)
[2018-07-07 07:38] LABS: Basophils # (auto) 0.03 K/uL (0-0.2); Basophils % (auto) 0.3 %; Hematocrit (blood only) 31.8 % (37-47); Hemoglobin 10.1 g/dL (12.0-16.0); Immature Granulocytes # (auto) 0.03 K/uL (0.00-0.02); Immature Granulocytes % (auto) 0.3 %; Lymphocytes # (auto) 4.23 K/uL (1.2-3.4); Lymphocytes % (auto) 41.8 %; Mean Corpuscular Hgb Conc 31.8 g/dL (32-36); Mean Corpuscular Volume 84.4 fL (80-100); Mean Platelet Volume 9.4 fL (7.4-10.4); Monocytes # (auto) 0.57 K/uL (0.11-0.59); Monocytes % (auto) 5.6 %; Neutrophils # (auto) 5.27 K/uL (1.4-6.5); Platelet Count 248 K/uL (130-400); RDW Standard Deviation 46.2 fL (36.4-46.3); Red Blood Count 3.77 M/uL (4.2-5.4); White Blood Count 10.13 K/uL (4.8-10.8)
[2018-07-07 07:48] LABS: INR 1.9 (0.9-1.1); Partial Thromboplastin Ratio 1.2; Partial Thromboplastin Time 33.3 Seconds (21.0-31.0); Prothrombin Time 18.5 Seconds (9.0-12.0)
[2018-07-07 08:09] LABS: BUN Creatinine Ratio 22.3 (10-20); Calcium 8.3 mg/dl (8.5-10.1); Creatinine Clr Calc Pharmacy 139.3 ml/min; Est GFR (African American) 109.2; Est GFR (Non-African American) 94.2; Potassium 4.3 mmol/L (3.5-5.1)
[2018-07-07] MEDS: INSULIN ASPART 100 UNITS/ML 3 ML PEN SC SCH ×3 (09:13→18:33)
[2018-07-07] MEDS: CYCLOBENZAPRINE HCL 10 MG TAB PO SCH (09:14)
[2018-07-07] MEDS: PANTOprazole 40 MG TAB PO SCH (09:14)
[2018-07-07] MEDS: TAPENTADOL HCL 50 MG TAB PO SCH ×2 (09:21→13:44)
[2018-07-07] MEDS: HYDROmorphone INJ 0.5 MG/0.5 ML SYR IV PRN (12:38)
[2018-07-07] MEDS: METOCLOPRAMIDE HCL INJ 5 MG/ML 2 ML VIAL IV PRN (14:36)
[2018-07-07] MEDS: WARFARIN SOD 5 MG TAB PO SCH (16:19)
--- NOTE | 2018-07-07 16:36 | Discharge Summary ---
Date of Service July 07, 2018 Admission HPI Per Admitting Provider Chief Complaint: The patient presents to the emergency department with complaint of severe left-sided flank pain with nausea and vomiting that began at 1400 hrs., similar to previous kidney stone attacks. Primary Care Provider: Diogo Armstrong The patient is a 38-year-old female with a past medical history including several kidney stones, with the first being at age 19, who presents to the emergency department with her usual symptoms of severe left-sided abdomen radiating to flank pain, accompanied by nausea and vomiting. She was seen in emergency department yesterday, was noted to have a 4 mm left ureteral stone, and was discharged on Phenergan and oxycodone as needed. She reports that she has had vomiting every time she tries to take the pain medications. She follows with Dr. Acuña from urology, and reports that she is only been able to ever pass 1 of the 8 stones in her past on her own. She has been taking Coumadin since June 15, for pulmonary emboli. Principal Diagnosis Left ureterolithiasis Discharge Exam Constitutional WD/WN, vitals as above Eyes PERRL, conjunctivae normal, anicteric sclerae ENMT external ear and nose normal, oropharynx normal Neck trachea midline, no thyromegaly Respiratory normal respiratory effort, lungs clear to auscultation Cardiovascular RRR, no murmur, no edema Gastrointestinal (Abdomen) normal bowel sounds, soft, nontender, no hepatosplenomegaly Musculoskeletal Extremities: extremities normal to inspection; no cyanosis and no clubbing Skin no rashes, warm and dry Neurologic moves all extremities and awake; no focal motor deficits Psychiatric Orientation: alert and oriented x 3 Mood: + depressed mood Suicidal Thoughts: denies suicidal plan; + reports suicidal thoughts (but back to baseline) Discharge Data Allergies Allergy/AdvReac Type Severity Reaction Status Date / Time morphine Allergy Severe "HEART Verified 07/01/18 20:36 STOPS BEATING" black pepper Allergy Mild Swelling Verified 07/01/18 20:36 of Lip/Tongue/Throat ketorolac Allergy Mild ITCHY, BUT Verified 07/01/18 20:36 CAN STILL TAKE IT mushroom Allergy Mild Unknown Verified 07/01/18 20:36 Sulfa (Sulfonamide Allergy Mild Rash Verified 07/01/18 20:36 Antibiotics) terfenadine Allergy Mild RASH Verified 07/01/18 20:36 aspartame Allergy Unknown HIVES Unverified 07/01/18 20:36 chlorpheniramine Allergy Unknown "ANTIHISTAMINE Verified 07/01/18 20:36 ALLERGY" - NO ALLERGY TO CLARITIN PER PT diphenhydramine Allergy Unknown "ANTIHISTAMINE Verified 07/01/18 20:36 ALLERGY"- NO ALLERGY TO CLARITIN PER PT fexofenadine Allergy Unknown Unknown Verified 07/01/18 20:36 shellfish derived AdvReac Severe HIVES Unverified 06/30/18 16:50 Consultations 07/01/18 20:49 ED Decision to Admit Stat 07/02/18 00:59 Consult Case Management - Discharge Planning Routine Consult Urology Routine 07/06/18 08:51 Consult Psychiatry Routine Procedures Performed Operation Date: 07/05/18 11:00 Actual Procedures p Cystoscopy, Left Ureteroscopy, Basket Stone Extraction (Left) - Lavell unger MD Ordered Studies 07/01/18 22:12 CT abd pelvis wo con Stat 07/05/18 FL retrograde includes kub Routine KUB Hospital Course (1) Left ureteral calculus: - CT with 3 mm obstructing calculus distal left ureter at the mid left sacral iliac joint level which was unable to pass and is S/P cystoscopy with stone extraction on 07/05 Left flank pain now resolved No evidence of infection- does not need antibiotics -Discontinued Flomax as she is already on Cardura - Urology following - completed stone extraction on 07/05-no stent was placed -f/u with Urology after discharge (2) Diabetes: - [id number], last hemoglobin A1c here is 9.6% - Holding home oral anti-diabetics and exenatide and covered with SSI -can restart home meds upon discharge -f/u with PCP for improved management (3) Pulmonary embolism: - Recent diagnosis on June 15, 2018 with bilateral multiple PEs with evidence of right-sided strain on CT-she was transferred out to [facility] in [place] where they treated her with anticoagulation and no catheter directed thrombectomy - Unprovoked but patient reports she gave recent blood to look for hypercoag issues. Also is on Depo Provera injection--> she already has appt with [facility] to discuss alternative therapy - INR remained subtherapeutic for several days and she was started on bridging Lovenox 1 mg/kg SC every 12 hours--> continue Lovenox 140mg SQ q12h until INR between 2.0-3.0 -she already has Lovenox at home from previous and does not need a refill -advised to call [facility] and get INR checked on 07/08/18 -Continue Coumadin 5mg daily (4) Mood disorder: With chronic suicidal ideation-recently exacerbated by hospitalization Seen by Psychiatry here and thought she was not a risk to herself and did not need inpatient hospitalization -may have also been exacerbated by missing 5 days of her Vrylar as it was nonformulary -Prozac was increased to 20mg daily by Psychiatry here -she will move up her next Psychiatry appt to within the next 2 weeks -Continue doxazosin 2 mg HS, Topiramate 25 mg HS, Trazodone 50 mg HS, Ambien 10 mg HS, Prozac 20 mg -Patient reports her Vistaril was not on the home med rec and she takes 25 mg as needed during the day and 25 mg at bedtime -We do not have her regular Vraylar from home here and she has no ability to bring it in to take it here-restartat home -Appreciate Psych consult here (5) Bipolar disorder current episode depressed: As above (6) Abdominal pain: With new right lower quadrant pain here with recurrent nausea. She did have bilateral nephrolithiasis on CT scan Reviewed with urology on the phone-urology thinks that the stones on the right are so tiny that if they passed they would not cause obstruction KUB does not show stone on the right although could be small -received IV fluids, antiemetics, pain control -persisted, but afebrile, no evidence on imaging or examination of an acute abdomen. Sh eis eating full meals and moving her bowels. Pain worse with urinating. SHe is currently having vaginal bleeding which is unusual for her with being on Depo Provera injection and likely due to being on antcoagulation--> perhaps RLQ is menstrual cramping -advised home pain meds and f/u with PCP (7) Nausea: secondary to pain or perhaps to pain medication received here? -continue on home phenergan after discharge (8) Chronic pain: Stable -Continue home Nucynta ER and immediate release (9) DVT prophylaxis: Bridging Lovenox, Coumadin Disposition-stable for dc to home Total Time Total Time Spent Total Time Spent (In Minutes): >30 min Total Time Includes: Examination of the Patient, Discharge Planning and Medication Reconciliation Discharge Plan Discharge Items Patient Disposition: Home - Self-Care Reason For Visit: KIDNEY STONE Discharge Diagnosis: Kidney stone Condition: Fair Discharge Goals: Decrease discomfort, Diagnostic testing and Therapeutic interv ention Activity: Resume your previous activity Bathing: No limitations Exercise/Sports: Gradually increase as tolerated Non-emergency contact: Primary Care Provider and Urologist Call non-emergency contact if: you have any medication questions, your symptoms worsen, your pain is not controlled, your pain is worsening, your pain is unusual for you, your pain is concerning for you and your temperature is above 101 Follow-up/Referrals: Diogo Armstrong [Primary Care Provider] - 07/10/18 3:00 pm (Please, follow up with Dr. Armstrong on FridayJuly 10 at 3:00 pm. *If you need to change this appointment, call the office at [phone].) Anne Acuña MD [Physician] - (Please, follow up at the [facility] in [facility] with Dr. Anne Acuña. *The nurse from this office will be calling you to arrange the appointment. If you have any questions, call the office at [phone]. ) Diet: Regular Addtl Provider Instructions: You were admitted for a kidney stone and had a procedure to have it removed. You can continue your usual pain meds as needed, and can take phenergan as needed for nausea. Please follow up with the Urologist within 1-2 weeks. Your Prozac was increased to 20mg daily by the Psychiatrist here. Please move up your appointment with your Psychiatrist to within the next 2 weeks. Your INR was too low and you were given injections of a blood thinner called Lovenox to keep your blood thin while awaiting for your INR to go up. Please continue these injections twice daily until your Anticoagulation Clinic doctor tells you to stop. Continue on coumadin 5mg daily and have your INR checked in 1 day (on 06/2718). Prescriptions: New enoxaparin [Lovenox] 150 mg/mL Syringe 140 mg subcut Q12H Qty: 1 RF: 0 fluoxetine 20 mg Capsule 20 mg PO HS Qty: 30 RF: 0 promethazine 25 mg tablet 25 mg PO Q6H PRN (Reason: nausea and vomiting) Qty: 10 RF: 0 Continued valacyclovir [Valtrex] 1 gram tablet 1 g PO BID PRN (Reason: BREAKOUTS) RF: 0 sumatriptan [Imitrex] 20 mg/actuation spray,non-aerosol 20 mg Intranasal DAILY PRN (Reason: Migraine Headache) RF: 0 fluticasone propionate [Flonase Allergy Relief] 50 mcg/actuation Spra y,Suspension 1 spray INTRANASAL DAILY PRN (Reason: Allergy Symptoms) RF: 0 Vitamin B-1 50 mg Tablet 50 mg PO HS RF: 0 Novolog Flexpen U-100 Insulin 100 unit/mL insulin pen 1 dose subcut AC PRN (Reason: Hyperglycemia) RF: 0 Vitamin D3 4,000 unit Capsule 4,000 units PO HS RF: 0 hydroxyzine pamoate [Vistaril] 25 mg capsule 25 mg PO DAILY PRN (Reason: Anxiety) RF: 0 hydroxyzine pamoate [Vistaril] 25 mg capsule 25 mg PO HS RF: 0 oxycodone 5 mg tablet 5 mg PO Q6H PRN (Reason: pain) Qty: 14 RF: 0 cyclobenzaprine 10 mg Tablet 10 mg PO BID RF: 0 doxazosin 2 mg Tablet 2 mg PO HS RF: 0 exenatide microspheres 2 mg/0.65 mL Pen Injector 2 mg SUBCUT WK RF: 0 glimepiride 2 mg Tablet 4 mg PO BID RF: 0 metformin 750 mg Tablet Extended Release 24 Hr 750 mg PO BID RF: 0 pantoprazole 40 mg Tablet,Delayed Release (Dr/Ec) 40 mg PO QAM RF: 0 ranitidine HCl [Zantac] 300 mg Tablet 600 mg PO HS RF: 0 Nucynta 100 mg Tablet 100 mg PO TID RF: 0 Nucynta ER 100 mg Tablet Extended Release 12 Hr 100 mg PO HS RF: 0 topiramate 25 mg Tablet 25 mg PO HS RF: 0 trazodone 50 mg Tablet 50 mg PO HS RF: 0 zolpidem [Ambien] 10 mg Tablet 10 mg PO HS RF: 0 Vraylar 4.5 mg capsule 4.5 mg PO DAILY RF: 0 Changed warfarin 5 mg tablet 5 mg PO UD Qty: 0 RF: 0 Discontinued fluconazole 150 mg tablet 150 mg PO HS RF: 0 tamsulosin [Flomax] 0.4 mg capsule 0.4 mg PO DAILY RF: 0 fluoxetine 10 mg capsule 10 mg PO HS RF: 0 Stand-Alone Forms: [facility], Work/School Release (Inpt) Discharge Orders: Discharge Order (Routine); Ordered 07/07/18 Ordered By: Mayra Partida Admission Data Admit Date/Time: 07/01/18 23:22 Attending Provider: Mayra Partida Admit Provider: Marco A Baez Primary Care Provider: Diogo Armstrong Other Providers: Marco A Baez ; Anne Acuña ; Mary Osuna Service: Medical Other Pending Studies at Discharge: No
[2018-07-10 08:45] LABS: Component 2 DNR
== END 2018-07-07 19:45 | disposition home or self-care (01) | DRG 668 ==
LOC: ED 18:47 → SUATTDRO 23:22 → 3W 23:22